=== PATIENT | female | born 1965 | race Caucasian/White ===

== ENCOUNTER 2020-05-03 12:47 | Outpatient (CLI) | payer SELFPAY ==
--- NOTE | ~2020-05-03 | XR_ITS ---
EXAMINATION: XR lumbar spine 2-3V EXAM DATE: 05/03/2020 13:26 INDICATION: Gross study of back pain, coccygeal pain. TECHNIQUE: Lumber spine frontal, lateral, lateral L5-S1 projections for interpretation. There is no prior study for comparison. FINDINGS: There is 4 mm anterolisthesis L5 on S1 with moderate disc disease at this level, mild to mo derate at L4-5. Possible L5 spondylolysis. The vertebral bodies are otherwise aligned. The vertebral body and disc heights are otherwise well maintained. There is moderate lower lumbar facet arthropathy . Sacrum, sacroiliac joints, sacral arcuate lines are intact. IMPRESSION: 1. L5-S1 grade 1 anterolisthesis, moderate disc disease and moderate lower lumbar facet arthropathy. 2. L5 spondylolysis not excludable. Reviewed, dictated and finalized at location G. IMPRESSION: 1. L5-S1 grade 1 anterolisthesis, moderate disc disease and moderate lower lum bar facet arthropathy. 2. L5 spondylolysis not excludable.
== END 2020-05-03 12:48 | disposition home or self-care (01) ==
PROVIDERS: PCP Family Medicine; Visit Provider Family Medicine
DX: M54.5 Low back pain (principal); M43.16 Spondylolisthesis, lumbar region; M51.86 Other intervertebral disc disorders, lumbar region; M47.816 Spondylosis without myelopathy or radiculopathy, lumbar region
CPT/HCPCS: 72100

== ENCOUNTER 2021-08-27 10:11 | Emergency (ER) | payer MEDICARE, SELFPAY ==
--- NOTE | ~2021-08-27 | XR_ITS ---
EXAMINATION: XR chest 2V 08/27/2021 11:31 INDICATION: Cough and congestion. PROCEDURE: 2 view chest COMPARISON: No prior studies for comparison. FINDINGS: The lungs are clear. The cardiomediastinal silhouette is within normal limits. There are no pleural effusions. There is no pneumothorax suspected. IMPRESSION: 1: NO ACUTE CARDIOPULMONARY DISEASE. Reviewed, dictated and finalized at location A. OMER SERVICE COORDINATOR
[2021-08-27 10:40] VITALS: BP 140/88; PULSE 93; RESP 14; TEMP 37.2; O2SAT 97
--- NOTE | 2021-08-27 11:09 | ED.GENADULT ---
HPI - General Adult General Chief complaint: Upper Respiratory Infection Stated complaint: cough/congestion Time Seen by Provider: 08/27/21 11:09 Source: patient Mode of arrival: ambulatory Limitations: no limitations History of Present Illness HPI narrative: 56-year-old female patient presents to the [facility] with complaints of cough and congestion for the past 10 days. Patient states she did a home test about 4 days into her symptoms but it came up negative. Patient is fully vaccinated against COVID. Patient does actively smoke. Patient states she has been trying to take some [id number] medication but it has not helped. Patient states she has had mostly cough, some drainage and congestion. Denies any current shortness of breath at this time. Denies having inhaler at home. Related Data Home Medications Medication Instructions Recorded Confirmed pramipexole 1.5 mg PO HS 08/27/21 08/27/21 triamterene-hydrochlorothiazid 1 cap PO DAILY 08/27/21 08/27/21 Allergies Allergy/AdvReac Type Severity Reaction Status Date / Time No Known Allergies Allergy Verified 08/27/21 10:49 Review of Systems Review of Systems: CONSTITUTIONAL: Denies fever, chills, or sweats. EYES: Denies visual changes, redness, or discharge. ENT: Positive rhinorrhea, congestion, denies sore throat, or otalgia. CARDIOVASCULAR: Denies chest pain, palpitations, or edema. RESPIRATORY: Positive cough with dyspnea. GASTROINTESTINAL: Denies abdominal pain, nausea, vomiting, or diarrhea. GENITOURINARY: Denies dysuria or hematuria. SKIN: Denies rash or itching. MUSCULOSKELETAL: Denies back pain, joint pain, or myalgia. NEUROLOGIC: Denies headache, numbness, or weakness. PSYCHIATRIC: Denies anxiety or depression. [facility] Past Medical History Medical History (Updated 08/27/21 @ 11:55 by JERAMY Pulliam) Arthritis Bulging disc Lumbar Degenerative disc disease GERD (gastroesophageal reflux disease) IBS (irritable bowel syndrome) Ovarian cyst Surgical History Surgical History (Updated 08/27/21 @ 11:11 by JERAMY Pulliam) H/O: hysterectomy History of appendectomy History of orthopedic surgery X3 Family History Family History (Updated 08/27/21 @ 11:12 by JERAMY Pulliam) Other Heart disease Hypertension Social History Social History (Updated 08/27/21 @ 11:12 by JERAMY Pulliam) Smoking status: Current every day smoker Comments At the time of my signature I agree with nursing past medical history, surgical, social, and family history. There is no relevant family history pertinent to the presenting complaint. Exam Narrative: GENERAL: Well-appearing, well-nourished, and in no acute distress. HEAD: Normocephalic, atraumatic. EYES: PERRLA and EOMI. ENT: Nares with erythema and edema noted bilaterally, no rhinorrhea or epistaxis. Mucous membranes moist. Posterior pharynx with no erythema, tonsillar joint, exudates or lesions present. Bilateral TMs are clear with no erythema or foreign bodies in the canal. NECK: Supple. No lymphadenopathy CHEST: Patient does have inspiratory wheezing noted to left upper and left lower lungs on auscultation. No respiratory distress. Patient able to talk in clear complete sentences. HEART: Regular rate and rhythm. No murmur heard. Normal peripheral pulses. ABDOMEN: Soft, nontender, nondistended, normal active bowel sounds. EXTREMITIES: Normal range of motion. No edema. SKIN: Warm, dry, no rash. NEURO: No focal deficits. Alert and oriented x3. Course Course Level of Care: Express Care Visit Reevaluation(s) Reevaluation #1: Reevaluated patient after x-ray had resulted. Discussed with her that the x-ray is negative. Patient did complete the breathing treatment. Patient states she feels like she is coughing more since the breathing treatment. Patient's lung sounds have improved and no longer here the wheezing to the left lower lobe. Discussed with patient that we did send off
[2021-08-27] MEDS: IPRATROPIUM BR 0.02% INH SOLN 0.5 MG/2.5 ML VIAL INHALATION (11:33)
[2021-08-27] MEDS: ALBUTEROL SULFATE NEB 2.5 MG/3 ML INH INHALATION (11:33)
[2021-08-27 11:51] VITALS: RESP 18; O2SAT 99
[2021-08-28 13:26] LABS: SARS-CoV-2 RNA PCR Negative
== END 2021-08-27 11:59 | disposition home or self-care (01) ==
PROVIDERS: Emergency Provider Nurse Practitioner Family; PCP Physician Assistant
DX: J40 Bronchitis, not specified as acute or chronic (principal); Z20.822 Contact with and (suspected) exposure to COVID-19; M19.90 Unspecified osteoarthritis, unspecified site; K21.9 Gastro-esophageal reflux disease without esophagitis
CPT/HCPCS: 71046; 94640; 99213; C9803; G0463; U0003; U0005

== ENCOUNTER → 2022-02-08 12:22 | Outpatient (CLI) | payer MEDICARE, SELFPAY ==
--- NOTE | ~2022-02-08 | MM_ITS ---
EXAMINATION: MM screening susie BI w naomie HISTORY: Screening TECHNIQUE: Craniocaudal and mediolateral oblique 3-D tomosynthesis images were obtained and synthetic 2-D images were generated. CAD analysis was submitted and interpreted. COMPARISON: 07/09/2016 BREAST PARENCHYMAL COMPOSITION: There are scattered areas of fibroglandular density. FINDINGS: There is no evidence of suspicious mass, calcification, or architectural distortion to sugg est malignancy in either breast. There has been no suspicious interval change. IMPRESSION: 1. No mammographic evidence of malignancy. 2. Recommend routine screening mammography in one year. BI-RADS Category 1: Negative Reviewed, dictated and finalized at location A.
== END ==
PROVIDERS: PCP Family Medicine; Visit Provider Family Medicine
DX: Z12.31 Encounter for screening mammogram for malignant neoplasm of breast (principal)
CPT/HCPCS: 77063; 77067

== ENCOUNTER 2022-02-14 15:37 | Outpatient (CLI) | payer MEDICARE, SELFPAY ==
--- NOTE | 2022-02-14 | ECG_ITS ---
Measurements Intervals [place] Rate: 76 P: 52 [place]: 165 QRS: 35 QRSD: 74 T: 44 QT: 386 QTc: 437 Interpretive Statements SINUS RHYTHM BASELINE WANDER- I, II NORMAL ECG Electronically Signed On 02-14-2022 16:38:07 CDT by Darnell Pichardo D.O.
[2022-02-14 16:11] LABS: Hemoglobin 14.3 g/dL (12.0-15.0)
[2022-02-14 16:26] LABS: Albumin Level 4.5 g/dL (3.5-5.1); Estimated Glomerular Filt Rate > 60
== END 2022-02-14 15:38 | disposition home or self-care (01) ==
PROVIDERS: PCP Family Medicine; Visit Provider Orthopaedic Surgery
DX: M17.11 Unilateral primary osteoarthritis, right knee (principal); K21.9 Gastro-esophageal reflux disease without esophagitis; Z01.818 Encounter for other preprocedural examination
CPT/HCPCS: 36415; 82040; 82565; 85014; 85018; 93005

== ENCOUNTER 2022-02-20 08:27 | Emergency (ER) | payer MEDICARE, SELFPAY ==
[2022-02-20 08:32] VITALS: BP 131/85; PULSE 91; RESP 20; TEMP 37.3; O2SAT 99
--- NOTE | 2022-02-20 08:33 | ED.EAR ---
HPI - Ear Problem General Chief complaint: Ear Stated complaint: Left Ear Pain Time Seen by Provider: 02/20/22 08:33 Source: patient and RN notes reviewed History of Present Illness HPI Narrative: Patient is a 56-year-old female who presents the urgent care with complaints of left ear pain and decreased hearing. Patient states that it started this past weekend and she saw her primary care doctor yesterday who gave her prescription drops. Patient states that she has done 4 doses and does not feel that it is getting any better. Patient does not feel that the drops are making it down into the canal . Patient denies of any fevers or other upper respiratory complaints. No acute distress noted. Patient aware of the plan of care. Some parts of this dictation were generated by voice recognition software and may contain typographical and/or grammatical inaccuracies. Related Data Home Medications Medication Instructions Recorded Confirmed pramipexole 1.5 mg tablet 1.5 mg PO HS 08/27/21 02/14/22 triamterene 37.5 1 cap PO DAILY 08/27/21 02/14/22 mg-hydrochlorothiazide 25 mg capsule sumatriptan succinate 6 mg/0.5 mL 6 mg subcut ONCE 10/31/21 02/14/22 subcutaneous cartridge (refill) [id number]-[id number] 3.5 4 drp EACH EAR Q8H 02/20/22 02/20/22 mg-10,000 unit/mL-1 % ear drops,susp Allergies Allergy/AdvReac Type Severity Reaction Status Date / Time adhesive tape Allergy Unknown Unknown Verified 02/14/22 14:47 Review of Systems Review of Systems: CONSTITUTIONAL: Denies fever, chills, or sweats. EYES: Denies visual changes, redness, or discharge. ENT: Denies rhinorrhea, congestion, sore throat. Reports of left otalgia CARDIOVASCULAR: Denies chest pain, palpitations, or edema. RESPIRATORY: Denies cough or dyspnea. GASTROINTESTINAL: Denies abdominal pain, nausea, vomiting, or diarrhea. GENITOURINARY: Denies dysuria or hematuria. SKIN: Denies rash or itching. MUSCULOSKELETAL: Denies back pain, joint pain, or myalgia. NEUROLOGIC: Denies headache, numbness, or weakness. All other systems reviewed are negative, except as documented in HPI. FORMERLY [facility], [facility] Past Medical History Medical History Arthritis Bulging disc Lumbar Degenerative disc disease GERD (gastroesophageal reflux disease) IBS (irritable bowel syndrome) Ovarian cyst Surgical History Surgical History H/O: hysterectomy History of appendectomy History of orthopedic surgery X3 Family History Family History Mother Lung cancer COPD (chronic obstructive pulmonary disease) Father Bone cancer Heart attack Arthritis Sibling Heart attack Other Heart disease Hypertension Social History Social History Smoking packs per day: 1.5 Smoking cigarettes per day: 30.0 Smoking status: Never smoker Tobacco type: cigarettes Alcohol intake: unknown Substance use: never Substance use type: does not use Comments At the time of my signature, I reviewed and agree with the nursing past medical, surgical, social, and family history. There is no relevant family history pertinent to the patient complaint. Exam Narrative: GENERAL: This is a well-nourished, well-developed patient, in no apparent distress. HEAD: normocephalic, atraumatic. EYES: PERRL. Sclera clear/white. Vision is grossly intact. EARS: External ears normal, mild to moderate edema to the left auditory canal with scant clear drainage. Right auditory canals clear and without drainage, right TM normal without perforation. Unable to visualize left TM. Hearing grossly intact. NOSE: External nose normal with no obvious nasal discharge, nares without redness, no rhinorrhea. THROAT: Mucous membranes moist NECK: Neck supple SKIN: warm, intact with no suspicious lesions o
== END 2022-02-20 09:02 | disposition home or self-care (01) ==
PROVIDERS: Emergency Provider Nurse Practitioner Family; PCP Family Medicine
DX: H60.92 Unspecified otitis externa, left ear (principal); M19.90 Unspecified osteoarthritis, unspecified site; K21.9 Gastro-esophageal reflux disease without esophagitis
CPT/HCPCS: 99213; G0463

== ENCOUNTER 2022-02-28 07:59 | Outpatient (CLI) | payer MEDICARE, SELFPAY ==
[2022-02-28 09:05] LABS: Basophils Percent Auto 0.6 % (0.2-1.2); Eosinophils Absolute Auto 0.2 K/mm3 (0-0.3); Eosinophils Percent Auto 2.1 % (0-4.4); Hematocrit 37.4 % (37.0-47.0); Hemoglobin 12.4 g/dL (12.0-15.0); Immature Granulocyte Absolute 0.03 K/mm3 (0.00-0.031); Immature Granulocyte Percent A 0.4 % (0-0.5); Lymphocytes Absolute Auto 2.23 K/mm3 (0.9-3.2); Lymphocytes Percent Auto 31.8 % (18.3-44.2); Mean Corpuscular HGB Conc 33.2 g/dl (32-36); Mean Corpuscular Hemoglobin 31.6 pg (26-34); Mean Corpuscular Volume 95.4 fl (80-100); Mean Platelet Volume 8.8 fl (7.4-10.4); Monocytes Absolute Auto 0.4 K/mm3 (0.1-0.6); Neutrophils Absolute Auto 4.1 K/mm3 (1.3-6.7); Neutrophils Percent Auto 59.1 % (45.5-73.1); Platelet Count Result 259 k/mm3 (150-375); Red Blood Count 3.92 M/mm3 (4.2-5.4); Red Cell Distribution Width 13.2 % (11.5-14.5)
[2022-02-28 09:20] LABS: Anion Gap 5 mmol/L (8-16); Blood Urea Nitrogen 20 mg/dL (7-17); Calcium 8.4 mg/dL (8.4-10.2); Carbon Dioxide 28 mmol/L (22-30); Chloride 107 mmol/L (98-107); Estimated Glomerular Filt Rate > 60; Glucose 93 mg/dL (65-110); Potassium 3.8 mmol/L (3.4-5.0); Sodium 140 mmol/L (137-145)
[2022-02-28 09:32] LABS: Urine Cotinine POSITIVE
[2022-02-28 09:38] LABS: Hemoglobin A1C 5.4 % (<5.7)
== END 2022-02-28 08:00 | disposition home or self-care (01) ==
PROVIDERS: Anesthesiology; PCP Family Medicine; Visit Provider Orthopaedic Surgery
DX: M17.11 Unilateral primary osteoarthritis, right knee (principal); Z79.899 Other long term (current) drug therapy; Z01.818 Encounter for other preprocedural examination
CPT/HCPCS: 36415; 80048; 80307; 83036; 85025; 87081

== ENCOUNTER 2022-04-02 09:09 | Outpatient (CLI) | payer MEDICARE, SELFPAY ==
[2022-04-02 09:40] LABS: Urine Cotinine NEGATIVE
== END 2022-04-02 09:10 | disposition home or self-care (01) ==
PROVIDERS: PCP Family Medicine; Visit Provider Orthopaedic Surgery
DX: M17.11 Unilateral primary osteoarthritis, right knee (principal); K21.9 Gastro-esophageal reflux disease without esophagitis; Z79.899 Other long term (current) drug therapy; Z87.891 Personal history of nicotine dependence; Z01.818 Encounter for other preprocedural examination
CPT/HCPCS: 80307

== ENCOUNTER 2022-04-26 12:08 | Outpatient (CLI) | payer MEDICARE, SELFPAY ==
[2022-04-26 12:42] LABS: Basophils Percent Auto 0.6 % (0.2-1.2); Eosinophils Absolute Auto 0.2 K/mm3 (0-0.3); Eosinophils Percent Auto 3.4 % (0-4.4); Hematocrit 37.4 % (37.0-47.0); Hemoglobin 12.6 g/dL (12.0-15.0); Immature Granulocyte Absolute 0.03 K/mm3 (0.00-0.031); Immature Granulocyte Percent A 0.5 % (0-0.5); Lymphocytes Absolute Auto 2.13 K/mm3 (0.9-3.2); Lymphocytes Percent Auto 32.7 % (18.3-44.2); Mean Corpuscular HGB Conc 33.7 g/dl (32-36); Mean Corpuscular Hemoglobin 32.6 pg (26-34); Mean Corpuscular Volume 96.6 fl (80-100); Monocytes Absolute Auto 0.4 K/mm3 (0.1-0.6); Monocytes Percent Auto 5.8 % (2.6-8.5); Neutrophils Absolute Auto 3.7 K/mm3 (1.3-6.7); Platelet Count Result 235 k/mm3 (150-375); Red Blood Count 3.87 M/mm3 (4.2-5.4); White Blood Count 6.5 K/mm3 (4.5-10.0)
[2022-04-26 13:03] LABS: Anion Gap 13 mmol/L (8-16); Blood Urea Nitrogen 20 mg/dL (7-17); Calcium 8.3 mg/dL (8.4-10.2); Carbon Dioxide 25 mmol/L (22-30); Chloride 105 mmol/L (98-107); Estimated Glomerular Filt Rate > 60; Glucose 142 mg/dL (65-110); Potassium 3.9 mmol/L (3.4-5.0); Sodium 143 mmol/L (137-145)
== END 2022-04-26 12:09 | disposition home or self-care (01) ==
PROVIDERS: Anesthesiology; PCP Family Medicine; Visit Provider Orthopaedic Surgery
DX: Z01.818 Encounter for other preprocedural examination (principal); M17.11 Unilateral primary osteoarthritis, right knee; Z79.899 Other long term (current) drug therapy
CPT/HCPCS: 36415; 80048; 82040; 85025; 86850; 86900; 86901

== ENCOUNTER 2022-05-01 00:34 | Day surgery (SDC) | payer MEDICARE, SELFPAY ==
--- NOTE | 2022-02-28 07:55 | PC.NURSE ---
Report to the Outpatient Waiting Room, entrance under the green pavilion located off [facility], at time _0830_ on date _03/27/22_. OR Time: _1030_. - You and your visitor will be asked a series of questions to screen for COVID 19 for your protection. - A mask is required within the hospital. - Only one visitor is allowed at this time. - The patient visitor is requested to leave or wait in car when not with patient. -PACK A SMALL OVERNIGHT BAG AND LEAVE IN THE CAR ALONG WITH YOUR WALKER, VISITING HOURS 10AM-8PM, PARK IN FRONT OF HOSPITAL AND USE MAIN HOSPITAL ENTRANCE Patients may have clear liquids (water, carbonated beverages, clear teas, apple juice) until 3 hours prior to surgery (0730 AM) with a maximum of 20 ounces. - No food from midnight until time of surgery Take the following medications with a SIP of water the morning of surgery: _FLUOXETINE, TYLENOL IF NEEDED_ Medications to discontinue per physician __NONE , Date to take last dose Please no make-up, nail icelandic, hairspray, perfume, deodorant, or body powder the day of surgery. No jewelry (including any body piercings) or valuables the day of surgery, leave them at home. Please take a shower or bath the night before, or the morning of, surgery with an antibacterial soap. Wear comfortable, loose fitting clothing. - Jewelry must be removed prior to entering the operating room. Rings and piercings that are not removed may be cut off. - The hospital will not accept responsibility for valuables. - Please leave all valuables, including medications, at home the day of surgery. If you are going home after surgery, a licensed snaker tractor driver must drive you home. - NO public transportation without another adult. - We recommend that an adult stay with you for 24 hours following discharge. - We also recommend that you do not drive, make important decision, drink alcoholic beverages, or take any drugs that were not prescribed by your health care provider for at least 24 hours after your discharge time. Follow any additional instructions given to you from your surgeon. TOTAL JOINT CALL TODAY 02/28/22 @ 1000 AM, [facility], USE MAIN ENTRANCE - LOWER LEVEL If you or anyone in your household have experienced Covid symptoms in the past week, please notify your surgeon or the nurse liaison at the phone number below for possible testing. Instructions given to _PT_and asked if any additional questions and then verbalized understanding. Patient advised to call surgeon office or pre surgery nurse liaison [phone] if any additional questions.
[2022-02-28 08:27] VITALS: BP 130/84; PULSE 86; RESP 20; TEMP 37.1; O2SAT 97; BMI 38.7
[2022-04-25 09:36] VITALS: BMI 38.6
--- NOTE | 2022-04-25 09:42 | PC.NURSE ---
PRE-OP INSTRUCTIONS, PLEASE READ CAREFULLY Report to the Outpatient Waiting Room, entrance under the green pavilion located off [facility], at time _0600_ on date _05/01/22_. OR Time: _0730_. Time changes happen often and if your time is changed the preop area will call you the afternoon before. - You and your visitor will be asked to self-screen and do not enter if you have any COVID symptoms. - Only one visitor and NO children visitors are allowed at this time. - The patient visitor is requested to leave or wait in car when not with patient due to restrictions. - A mask is required within the hospital. Patients may have clear liquids (water, carbonated beverages, clear teas, apple juice) until 3 hours prior to surgery (0430 AM) with a maximum of 20 ounces. - No food from midnight until time of surgery Take the following medications with a SIP of water the morning of surgery: _FLUOXETINE, TYLENOL IF NEEDED_ Medications to discontinue per physician N/A Date to take last dose Please no make-up, nail portuguese, hairspray, perfume, deodorant, or body powder the day of surgery. No jewelry (including any body piercings) or valuables the day of surgery, leave them at home. Please take a shower or bath the night before, or the morning of, surgery with an antibacterial soap. Wear comfortable, loose fitting clothing. Children are encouraged to wear pajamas. - Jewelry must be removed prior to entering the operating room. Rings and piercings that are not removed may be cut off. - The hospital will not accept responsibility for valuables. - Please leave all valuables, including medications, at home the day of surgery. If you are going home after surgery, a licensed van driver must drive you home. - NO public transportation without another adult. - We recommend that an adult stay with you for 24 hours following discharge. - We also recommend that you do not drive, make important decision, drink alcoholic beverages, or take any drugs that were not prescribed by your health care provider for at least 24 hours after your discharge time. Follow any additional instructions given to you from your surgeon. If you or anyone in your household have experienced Covid symptoms in the past week, please notify your surgeon or the nurse liaison at the phone number below for possible testing. Telephone instructions given to ___PT and asked if any additional questions and then verbalized understanding. Patient advised to call surgeon office or pre surgery nurse liaison [phone] if any additional questions.
--- NOTE | 2022-04-30 11:22 | WPDANESEPPF ---
Anes - Initial Pre Proc Eval Procedure: Operation Date: 03/27/22 10:30 Proposed Procedures p Right Total Knee Arthroplasty - Abdoul Luis MD Operation Date: 05/01/22 07:30 Proposed Procedures p Right Total Knee Arthroplasty - Abdoul Luis MD Date/Time: 04/30/22 11:22 Surgeon: Abdoul Luis MD Pre Op Diagnosis: Prim O.A. Right Knee Patient Data Age: 56 Gender: F Height: 1.6 m Weight: 99 kg Last Vital Signs Temp 37.1 C 02/28/22 08:27 Pulse 86 02/28/22 08:27 Resp 20 02/28/22 08:27 BP 130/84 02/28/22 08:27 Pulse Ox 97 02/28/22 08:27 O2 Del Method Room Air 02/28/22 08:27 Allergies Allergy/AdvReac Type Severity Reaction Status Date / Time adhesive tape Allergy Mild SKIN Verified 05/01/22 06:21 IRRITATION Home Medications Medication Instructions Recorded Confirmed Type pramipexole 1.5 mg tablet 1.5 mg PO HS 08/27/21 05/01/22 History triamterene 37.5 1 cap PO QAM 08/27/21 05/01/22 History mg-hydrochlorothiazide 25 mg capsule sumatriptan succinate 6 mg/0.5 mL 6 mg subcut ONCE PRN Migraine 10/31/21 05/01/22 History subcutaneous cartridge (refill) Headache acetaminophen 500 mg tablet 1,000 mg PO QID PRN Pain 02/28/22 05/01/22 History (Acetaminophen Extra Strength) docusate sodium 50 mg capsule 100 mg PO HS 02/28/22 05/01/22 History ECG: Date of Service: 02/14/22 Procedure(s): CA 12 lead EKG Accession Number(s): [id number] cc: ~ ? Measurements Intervals? [place]? Rate: ? 76 ? P:? 52 [place]: ? 165? QRS:? 35 QRSD: ? 74 ? T:? 44 QT: ? 386? QTc:? 437? Interpretive Statements SINUS RHYTHM BASELINE WANDER- I, II NORMAL ECG Electronically Signed On 02-14-2022 16:38:07 CDT by Darnell Pichardo D.O. Patient hx anesthesia problems: none Family hx anesthesia problems: none Results Review: All pre-operative results and documents have been reviewed as part of the pre-operative evaluation. [facility] Past Medical History Medical History (Updated 05/01/22 @ 07:17 by Florencio Navas MD) Arthritis Bulging disc Lumbar Degenerative disc disease Depression GERD (gastroesophageal reflux disease) HTN (hypertension) IBS (irritable bowel syndrome) Morbid obesity with BMI of 40.0-44.9, adult Obesity Ovarian cyst Surgical History Surgical History H/O: hysterectomy History of appendectomy History of orthopedic surgery X3 Family History Family History Mother Lung cancer COPD (chronic obstructive pulmonary disease) Father Bone cancer Heart attack Arthritis Sibling Heart attack Other Heart disease Hypertension Social History Social History Smoking packs per day: 1.5 Smoking cigarettes per day: 30.0 Years smoked: 10 Smoking pack-years: 15.00 Smoking status: Former smoker Tobacco type: cigarettes Second hand tobacco smoke exposure: No Smoking end date: 12/10/21 Additional smoking assessment comments: STATES OCCASIONALLY CHEATING LAST CIG 02/26/22-LAST CIG 02/26/22 CONFIRMED Alcohol intake: unknown Drinks per week: 2 Substance use: never Substance use type: does not use Living arrangements: with family Spiritual care concerns: No Anes - Eval Final PreProcedure Day of Procedure 04/30/22 11:22 Patient weight: morbidly obese Heart: regular rate and rhythm Lungs: clear to auscultation and normal air movement Airway: Mallampati scale class II Neurological: alert and oriented Last oral intake: >/= 8 hours ASA classification: III Emergent: no Anesth
--- NOTE | 2022-04-30 11:24 | WPDANESPNB ---
Anes - Peripheral Nerve Block Date/Time: 04/30/22 11:24 I have discussed with the patient/family/POA the placement of a peripheral nerve block for post-operative pain management, including associated risks, benefits, complications, and side effects. Alternative methods of post-operative analgesia were detailed. Questions were solicited and answers provided to the satisfaction of the patient/family/POA. Time-Out: A pre-procedural Time-Out was completed immediately before starting the procedure and confirmed: Patient Identification, Site, Procedure, Patient Position and the Availability of Requisite Equipment. Clinical Indications: Acute post-operative pain management requested by the operative surgeon. Nerve Block Insertion Note Anes-nerve block: adductor canal right Patient position: supine Skin prep: chlorhexidine Needle: 22 gauge, stimulating, insulated echogenic needle. Needle length: 80 mm Technique: ultrasound Technique comment: in plane Injectate: bupivacaine 0.5% with epi 5 mcg/ml (30cc) Observations: tolerated well Complications: none Procedure start time:: 720 Procedure end time:: 725
[2022-05-01] VITALS (18 sets, daily range): BP systolic 127–146; BP diastolic 78–97; PULSE 71–86; RESP 10–20; TEMP 35.8–37.3; O2SAT 95–99
--- NOTE | ~2022-05-01 | XR_ITS ---
EXAMINATION: XR knee RT 2V DATE: 05/01/2022 10:14 INDICATION: Right total knee arthroplasty. Postop. TECHNIQUE: 2 views of right knee were obtained. COMPARISON: Right knee radiographs 04/23/2022 FINDINGS: There is a total right knee arthroplasty with patellar resurfacing in near-anatomic alignme nt. No fracture. There is gas in the knee joint and soft tissues, consistent with recent surgery. The re is a small knee joint effusion. IMPRESSION: 1. Total right knee arthroplasty in near-anatomic alignment. Reviewed, dictated and finalized at location A.
[2022-05-01] MEDS: ACETAMINOPHEN 500 MG TABLET 1000 MG PO (06:35)
[2022-05-01] MEDS: LACTATED RINGERS 1,000 ML 30 ML IV CONT ×3 (06:45→10:46)
[2022-05-01] MEDS: TRANEXAMIC ACID 1,000MG/ISO100 1,000 MG/100 ML BAG 200 MG IVPB (06:46)
--- NOTE | 2022-05-01 07:22 | WPDHPUPDATE1 ---
History and Physical Update Update Date/Time: 05/01/22 07:22 History and Physical has been reviewed, including an updated exam of the patient. There are NO changes in the patient's condition. Risks, benefits, and alternatives have been discussed and questions answered. Patient agrees to proceed with procedure.
[2022-05-01] MEDS: ceFAZolin 2 GM/D5W 50 ML 2 GM/50 ML BAG IVPB ×3 (07:30→22:00)
[2022-05-01] MEDS: TRANEXAMIC ACID 1,000 MG/10 ML AMPUL 1000 MG IV PUSH (09:26)
[2022-05-01] MEDS: fentaNYL CITRATE INJ (*CRX) 100 MCG/2 ML VIAL 25 MCG IV PUSH ×8 (10:10→11:15)
--- NOTE | 2022-05-01 11:44 | ADMGEN ---
This patient, Noa Condon, was admitted to 3 [facility] Surg Room 313-01 at 1135. Patient/family oriented to hospital policies and general routines including ID bracelet, bed and alarms, visiting hours, pain management, procedures, bathroom and other care routines, personal items, smoking policy, room service/diet, and visiting hours. Information on how to activate the Rapid Response Team has been discussed. Patient/Family are encouraged to report perceived risks to care and to ask questions if they do not understand what they are told or what they should do.
[2022-05-01] MEDS: SODIUM CHLORIDE 0.9% IV 1,000 ML 125 ML IV CONT (11:57)
[2022-05-01] MEDS: oxyCODONE HCL (*CRX) 5 MG TAB IR PO (11:58)
--- NOTE | 2022-05-01 15:57 | P.OP_ITS ---
Procedure Note - Detailed Date of Procedure 05/01/22 Pre-op Diagnosis Prim O.A. Right Knee Post-op Diagnosis Same Procedure Performed Total knee arthroplasty, right knee. Surgeon Abdoul Luis MD Thermal Spray Operator Mignon Mendosa PA-C Anesthesia General and Regional (subsartorial block) Findings Advanced disease with extensive osteophytes and flexion contracture. Large medial release performed. Description of Procedure The patient was given a nerve block preoperatively, and then brought to the operating room. A general anesthetic was administered. The leg was prepped and draped in the usual sterile fashion. The limb was elevated and the tourniquet inflated to 300 mmHg during initial exposure, and cementation. A longitudinal incision was created along the medial border of the patella and patellar tendon, and a trivector approach to the knee was performed. A moderate medial release was taken, then later extended. The knee was then flexed. The osteophytes were carefully removed. The intramedullary guide was placed in the femoral canal. The distal femoral resection was then taken with the oscillating saw. The collateral ligaments were carefully protected. The tibia was carefully exposed. The jig was applied, and the proximal tibia was resected according to preoperative plan. The knee was balanced in extension. Appropriate releases were taken where needed. The anterior cruciate ligament and meniscal remnants w ere removed. The posterior cruciate ligament was preserved. The patella was measured. Patellar resection was carried out with the oscillating saw. The lug holes drilled. The femur was sized and rotation assessed using a combination of gap balancing, posterior referencing, and the AP axis. The 4 in 1 cutting block was used to finish the femoral cuts after equal gaps were assured. The lug holes were drilled. The box cut was taken. The osteophytes were carefully removed from the back of the knee. The knee was copiously irrigated with antibiotic solution periodically throughout the procedure. The meniscal remnants were removed. The spacer block was used to confirm equal flexion and extension gaps. Further releases were performed as needed. This included primarily the anterior MCL and needle release of the MCL fibers in flexion due to medial flexion tightness. The tibia was sized and broached. The bony surfaces were prepared for cementing with pulsatile lavage. The real tibial component was cemented into position followed by press fitting the femoral component. Excess cement was carefully removed. The patella component was press-fit. Patellar tracking was carefully assessed. No additional releases were required. The wound was closed with #1 Vycril suture, #2 Quill suture, 0-Quill suture, and 2-0 Quill suture followed by Steri-Strips. A sterile bulky dressing was applied. Meticulous hemostasis was maintained throughout the procedure. There were no complications. The patient was extubated and brought to the recovery room in stable condition after the application of sterile dressing with Noble bandage. Implants Who is Undercover [employer] Triathlon knee system, low profile cemented tibia size 4, press-fit femoral component size 4 ,and an 13 mm posterior stabilizing polyethylene insert. 32mm asymmetric metal backed press-fit patella component. Estimated Blood Loss -200.0 Drains No Pathology None sent Complications No immediate complications Condition Stable Disposition PACU [facility] Billing Surgery - Charge Forward: Surgery Billing
[2022-05-01] MEDS: SENNA/DOCUSATE SODIUM TABLET 2 TAB PO (16:54)
[2022-05-01] MEDS: MELOXICAM 7.5 MG TABLET PO (16:55)
[2022-05-01] MEDS: ASPIRIN 81 MG ENTERIC TABLET PO (16:55)
[2022-05-01] MEDS: oxyCODONE HCL (*CRX) 5 MG TAB IR 10 MG PO ×2 (16:55→21:36)
[2022-05-01] MEDS: DOCUSATE SODIUM 100 MG CAPSULE PO (21:37)
[2022-05-01] MEDS: FAMOTIDINE 20 MG TABLET PO (21:37)
[2022-05-01] MEDS: PRAMIPEXOLE 0.5 MG TABLET 1.5 MG PO (21:37)
[2022-05-02 00:09] VITALS: BP 94/63; PULSE 87; RESP 18; TEMP 36; O2SAT 96
[2022-05-02] MEDS: oxyCODONE HCL (*CRX) 5 MG TAB IR 10 MG PO ×3 (03:06→10:47)
[2022-05-02 05:08] VITALS: BP 111/72; PULSE 86; RESP 18; TEMP 36.2; O2SAT 95
[2022-05-02] MEDS: ceFAZolin 2 GM/D5W 50 ML 2 GM/50 ML BAG IVPB (06:02)
--- NOTE | 2022-05-02 07:33 | WPDANESPN ---
Anes - Prog Note Post-Op Date/Time: 05/02/22 07:33 Cardiovascular status: normal Respiratory status: normal Airway patency: baseline Mental status: baseline Post-Op hydration status: normal Vital Signs: Last Vital Signs Temp 97.1 F L 05/02/22 05:08 Pulse 86 05/02/22 05:08 Resp 18 05/02/22 05:08 BP 111/72 05/02/22 05:08 Pulse Ox 95 05/02/22 05:08 O2 Del Method Room Air 05/01/22 20:00 O2 Flow Rate 1 05/01/22 12:13 Pain Score (VAS): 0 I/O: Intake & Output 05/01/22 05/01/22 05/02/22 15:59 23:59 07:59 Intake Total 640 1890 250 Balance 640 1890 250 Patient Feedback: Patient satisfied with anesthetic care.
[2022-05-02 08:00] VITALS: PULSE 86; RESP 18; O2SAT 95
[2022-05-02] MEDS: SENNA/DOCUSATE SODIUM TABLET 2 TAB PO (09:23)
[2022-05-02] MEDS: polyethylene glycoL 3350 17 GM POWD.PACK PO (09:23)
[2022-05-02] MEDS: MELOXICAM 7.5 MG TABLET PO (09:24)
[2022-05-02] MEDS: TRIAMTERENE 37.5 MG/HCTZ 25 MG (MAXZIDE) TABLET 1 TAB PO (09:24)
[2022-05-02] MEDS: FAMOTIDINE 20 MG TABLET PO (09:24)
[2022-05-02] MEDS: ASPIRIN 81 MG ENTERIC TABLET PO (09:24)
[2022-05-02] MEDS: predniSONE 5 MG TABLET PO (09:24)
[2022-05-02] MEDS: ACETAMINOPHEN 500 MG TABLET 1000 MG PO (09:31)
--- NOTE | 2022-05-02 09:46 | P.DS_ITS ---
DS: Admitting Diagnosis Discharge Date 05/02/22 Admitting Diagnosis OA knee Right DS: Discharge Diagnosis Discharge Diagnosis Plan Postop day 1: Right total knee arthroplasty. Patient tolerated procedure well. No complications. Pain manageable with pain medication. No numbness or tingling. We had a lengthy discussion regarding postoperative wound care, limitations, expectations, and exercises. Patient shows good understanding. She has had initial physical therapy and is tolerating it well. DVT prophylaxis: 81 mg baby aspirin b.i.d. for 14 days. Pain medication: Percocet. Meloxicam. Prednisone. Patient has followup appointment with Dr. Luis in 3 weeks. DS: Summary Hospital Course Reason for hospitalization: Total knee arthroplasty Hospital Course: Patient tolerated procedure well. Has had initial PT/OT. No complications. Pain well managed. Status at Discharge Functional status at discharge: uses cane/walker Overall status at discharge: patient is progressing back to baseline Time Spent with Patient Time attestation: Total time spent providing and/or coordinating discharge services: Exam Narrative: Obese 56 y/o female. Resting comfortably in chair. No acute distress. A&O x3. Wearing compression socks bilaterally. Dressing intact with no drainage. Moderate swelling. Small area of ecchymosis. No erythema. No hematoma. Good early range of motion. Calf nontender. Neurologic status intact. No varicosities. Distal pulses palpable. Discharge Plan Discharge Patient Disposition: Home, Self-Care Discharge Instructions: See green instruction sheets Stand Alone Forms: General Discharge Instructions Follow-up/Referrals: Mignon Mendosa PA [Physician Trial Court Judge] - Discharge Medications: New meloxicam 15 mg tablet 15 mg PO DAILY Qty: 30 0RF Rx Instructions: Cut in half. Take 1/2 in morning and 1/2 at night. Take with food. Stop if stomach upset. oxycodone-acetaminophen 5-325 mg tablet 1 - 2 tablet PO Q4-6H MDD 6 PRN (Reason: pain) Qty: 30 0RF prednisone 5 mg tablet 5 mg PO DAILY 21 Days Qty: 21 0RF aspirin 81 mg tablet,delayed release (DR/EC) 81 mg PO BID 14 Days Qty: 28 0RF Continued triamterene-hydrochlorothiazid 37.5-25 mg Capsule 1 cap PO QAM pramipexole 1.5 mg Tablet 1.5 mg PO HS sumatriptan succinate 6 mg/0.5 mL cartridge 6 mg subcut ONCE PRN (Reason: Migraine Headache) Rx Instructions: may repeat dose once in 1 hour if not relieved docusate sodium 50 mg Capsule 100 mg PO HS acetaminophen [Acetaminophen Extra Strength] 500 mg Tablet 1,000 mg PO QID PRN (Reason: Pain)
--- NOTE | 2022-05-02 14:05 | PCOTNOTE ---
Attempted to see patient this pm, however patient being discharged and has no concerns as pertains to OT prior to leaving. Patient going to stay with sister and will have help as needed. At this time, patient is packed and waiting to leave.
== END 2022-05-02 14:15 | disposition home or self-care (01) ==
LOC: ANHSURGERY 05:47 → ANH3MEDSUR 11:43
PROVIDERS: PCP Family Medicine; Visit Provider Orthopaedic Surgery
PROC: (CPT 27447; principal; 2022-05-01 07:30)
DX: M17.11 Unilateral primary osteoarthritis, right knee (principal); G89.18 Other acute postprocedural pain; I10 Essential (primary) hypertension; K21.9 Gastro-esophageal reflux disease without esophagitis; K58.9 Irritable bowel syndrome, unspecified; F32.A Depression, unspecified; E66.01 Morbid (severe) obesity due to excess calories; Z68.41 Body mass index [BMI] 40.0-44.9, adult; Z87.891 Personal history of nicotine dependence
CPT/HCPCS: 27447; 64447; 36415; 73560; 80048; 80307; 82040; 85025; 86850; 86900; 86901; 97110; 97116; 97161; 97165; A9270; C1713; C1776; J0131; J0171; J0690; J1100; J1170; J1200; J1885; J2250; J2270; J2405; J2704; J2795; J3010; J7030; J7120; J7512

== ENCOUNTER 2022-06-06 10:04 | Outpatient (CLI) | payer MEDICARE, SELFPAY ==
[2022-06-06 11:03] LABS: Hematocrit 34.7 % (37.0-47.0); Hemoglobin 11.5 g/dL (12.0-15.0)
[2022-06-06 11:10] LABS: Albumin Level 4.3 g/dL (3.5-5.1); Estimated Glomerular Filt Rate > 60; Glucose 99 mg/dL (65-110)
[2022-06-06 11:13] LABS: Hemoglobin A1C 5.4 % (<5.7)
[2022-06-06 11:14] LABS: Urine Cotinine NEGATIVE
== END 2022-06-06 10:05 | disposition home or self-care (01) ==
LOC: ANHLAB 10:09
PROVIDERS: PCP Family Medicine; Visit Provider Physician Assistant Surgical
DX: M17.0 Bilateral primary osteoarthritis of knee (principal); K21.9 Gastro-esophageal reflux disease without esophagitis; Z79.899 Other long term (current) drug therapy
CPT/HCPCS: 80307; 82040; 82565; 82947; 83036; 85014; 85018

== ENCOUNTER 2022-07-02 15:34 | Outpatient (CLI) | payer MEDICARE, SELFPAY ==
--- NOTE | ~2022-07-02 | XR_ITS ---
XR lumbar spine 2-3V DATE: 07/02/2022 16:17 INDICATION: Left thigh pain, left buttock pain TECHNIQUE: AP, lateral, coned lateral lumbosacral views COMPARISON: 05/03/2020 lumbar spine FINDINGS: Since only 05/03/2020 there is advanced degenerative change with severe degenerative disc di sease now at L4-5 and L5-S1. Degenerative changes apophyseal joints with associated minimal grade 1 anterolisthesis at L4-5 and to a greater extent at L5-S1. Prominent anterior bridging osteophyte at T9-10. Prominent degenerative disc disease at T11-12. No fracture or bone destruction of the lumbar spine is detected. The lumbar and included lower thorac ic pedicles appear intact. Normal alignment at the pubic symphysis and sacroiliac joints. There is diffuse osteopenia. IMPRESSION: Prominent worsening, severe degenerative disc disease at L4-5 and L5-S1 since 05/03/2020 Grade 1 anterolisthesis at L4-5 and L5-S1 due to degenerative changes at apophyseal joints Osteopenia Reviewed, dictated and finalized at location A. NEERING TEACHER IMPRESSION: Prominent worsening, severe degenerative disc disease at L4-5 and L 5-S1 since 05/03/2020 Grade 1 anterolisthesis at L4-5 and L5-S1 due to degenerative changes at apophy seal joints Osteopenia
--- NOTE | ~2022-07-02 | XR_ITS ---
XR hip LT min 2V 07/02/2022 16:17 Indication: Left hip and thigh pain Procedure: AP pelvis and 2 views left hip Comparison: No prior studies for comparison. Findings: There is mild osteoarthritis of the left hip. No fracture or traumatic malalignment. No sof t tissue abnormality. No foreign bodies. Pelvic rings are intact. Sacral foramen are symmetric. There is lower lumbar spondylosis. Impression: 1: Mild osteoarthritis of the left hip. Reviewed, dictated and finalized at location B. T SUPERINTENDENT Impression: 1: Mild osteoarthritis of the left hip.
== END 2022-07-02 15:35 | disposition home or self-care (01) ==
PROVIDERS: PCP Family Medicine; Visit Provider Physician Assistant
DX: M79.18 Myalgia, other site (principal); M51.36 Other intervertebral disc degeneration, lumbar region; M51.37 Other intervertebral disc degeneration, lumbosacral region; M85.88 Other specified disorders of bone density and structure, other site; M16.12 Unilateral primary osteoarthritis, left hip
CPT/HCPCS: 72100; 73502

== ENCOUNTER 2022-08-01 12:46 | Outpatient (CLI) | payer MEDICARE, SELFPAY ==
[2022-08-01 13:37] LABS: Basophils Percent Auto 0.5 % (0.2-1.2); Eosinophils Absolute Auto 0.2 K/mm3 (0-0.3); Eosinophils Percent Auto 2.7 % (0-4.4); Hematocrit 41.2 % (37.0-47.0); Hemoglobin 13.9 g/dL (12.0-15.0); Immature Granulocyte Absolute 0.03 K/mm3 (0.00-0.031); Immature Granulocyte Percent A 0.4 % (0-0.5); Lymphocytes Absolute Auto 2.59 K/mm3 (0.9-3.2); Lymphocytes Percent Auto 32.2 % (18.3-44.2); Mean Corpuscular HGB Conc 33.7 g/dl (32-36); Mean Corpuscular Hemoglobin 31.4 pg (26-34); Mean Corpuscular Volume 93.2 fl (80-100); Mean Platelet Volume 9.4 fl (7.4-10.4); Monocytes Absolute Auto 0.4 K/mm3 (0.1-0.6); Monocytes Percent Auto 4.7 % (2.6-8.5); Neutrophils Absolute Auto 4.8 K/mm3 (1.3-6.7); Neutrophils Percent Auto 59.5 % (45.5-73.1); Platelet Count Result 270 k/mm3 (150-375); Red Blood Count 4.42 M/mm3 (4.2-5.4); Red Cell Distribution Width 12.8 % (11.5-14.5); White Blood Count 8.1 K/mm3 (4.5-10.0)
[2022-08-01 13:52] LABS: Albumin Level 4.7 g/dL (3.5-5.1); Estimated Glomerular Filt Rate > 60; Glucose 90 mg/dL (65-110)
[2022-08-01 20:11] LABS: Urine Cotinine NEGATIVE
== END 2022-08-01 12:47 | disposition home or self-care (01) ==
LOC: ANHSURGERY 12:47
PROVIDERS: PCP Family Medicine; Visit Provider Orthopaedic Surgery
DX: M17.12 Unilateral primary osteoarthritis, left knee (principal); Z01.818 Encounter for other preprocedural examination
CPT/HCPCS: 80307; 82040; 82565; 82947; 85025; 86850; 86900; 86901; 87081

== ENCOUNTER 2022-08-09 00:56 | Day surgery (SDC) | payer MEDICARE, SELFPAY ==
[2022-07-26 11:03] VITALS: BMI 38.2
--- NOTE | 2022-07-26 11:28 | PC.NURSE ---
Report to the Outpatient Waiting Room, entrance under the green pavilion located off [facility], at time __6:00AM on date _08/09/22 . Planned Procedure Time: __7:30AM . Time changes happen often and if your time is changed the preop area will call you the afternoon before. - You and your visitor will be asked to self-screen and do not enter if you have any COVID symptoms. - Only one visitor is requested with a max of two and NO children visitors are allowed at this time. - The patient visitor may be requested to leave or wait in car when not with patient due to distancing restrictions. - A mask is optional within the hospital. Patients may have clear liquids (water, carbonated beverages, clear teas, apple juice) until 3 hours prior to surgery with a maximum of 20 ounces. - No food from midnight until time of surgery Take the following medications with a SIP of water the morning of surgery: ___NONE Medications to discontinue per physician ___HOLD ALL VITAMINS/SUPPLEMENTS 3 DAYS PRE-OP Date to take last dose____08/05/22 Please no make-up, nail mohawk, hairspray, perfume, deodorant, or body powder the day of surgery. No jewelry (including any body piercings) or valuables the day of surgery, leave them at home. Please take a shower or bath the night before, or the morning of, surgery with an antibacterial soap. Wear comfortable, loose fitting clothing. Children are encouraged to wear pajamas. - Jewelry must be removed prior to entering the operating room. Rings and piercings that are not removed may be cut off. - The hospital will not accept responsibility for valuables. - Please leave all valuables, including medications, at home the day of surgery. If you are going home after surgery, a licensed customer service driver must drive you home. - NO public transportation without another adult if you receive anesthesia. - We recommend that an adult stay with you for 24 hours following discharge. - We also recommend that you do not drive, make important decision, drink alcoholic beverages, or take any drugs that were not prescribed by your health care provider for at least 24 hours after your discharge time. Follow any additional instructions given to you from your surgeon. If you or anyone in your household have experienced Covid symptoms in the past week, please notify your surgeon or the nurse liaison at the phone number below for possible testing. Telephone instructions given to _PATIENT and asked if any additional questions and then verbalized understanding. Patient advised to call surgeon office or pre surgery nurse liaison [phone] if any additional questions.
[2022-08-09] VITALS (18 sets, daily range): BP systolic 96–136; BP diastolic 62–94; PULSE 82–105; RESP 12–20; TEMP 35.6–37.1; O2SAT 92–100
--- NOTE | ~2022-08-09 | XR_ITS ---
Left Knee Technique: Portable AP and crosstable lateral views Clinical History: Status post TKR Findings: Patient is status post total knee replacement. Orthopedic hardware alignment appears anatom ic. No hardware complication is evident. Subcutaneous emphysema and swelling is likely postoperative in nature. No acute osseous fracture is seen. Impression: Status post total knee replacement, without evidence of hardware complication. Reviewed, dictated and finalized at location . HEALTH ASSISTANT Impression: Status post total knee replacement, without evidence of hardware complication.
[2022-08-09] MEDS: ACETAMINOPHEN 500 MG TABLET 1000 MG PO (06:18)
[2022-08-09] MEDS: TRANEXAMIC ACID 1,000MG/ISO100 1,000 MG/100 ML BAG 200 MG IVPB (07:03)
[2022-08-09] MEDS: SCOPOLAMINE 1.5 MG PATCH TRANSDERM (07:13)
[2022-08-09] MEDS: LACTATED RINGERS 1,000 ML 30 ML IV CONT ×2 (07:13→09:39)
--- NOTE | 2022-08-09 07:16 | WPDHPUPDATE1 ---
History and Physical Update Update Date/Time: 08/09/22 07:16 History and Physical has been reviewed, including an updated exam of the patient. There are NO changes in the patient's condition. Risks, benefits, and alternatives have been discussed and questions answered. Patient agrees to proceed with procedure.
[2022-08-09] MEDS: ceFAZolin 2 GM/D5W 50 ML 2 GM/50 ML BAG IVPB ×3 (07:27→22:51)
--- NOTE | 2022-08-09 08:29 | WPDANESPNB ---
Anes - Peripheral Nerve Block Date/Time: 08/09/22 08:29 I have discussed with the patient/family/POA the placement of a peripheral nerve block for post-operative pain management, including associated risks, benefits, complications, and side effects. Alternative methods of post-operative analgesia were detailed. Questions were solicited and answers provided to the satisfaction of the patient/family/POA. Time-Out: A pre-procedural Time-Out was completed immediately before starting the procedure and confirmed: Patient Identification, Site, Procedure, Patient Position and the Availability of Requisite Equipment. Clinical Indications: Acute post-operative pain management requested by the operative surgeon. Nerve Block Insertion Note Anes-nerve block: adductor canal left Patient position: supine Skin prep: chlorhexidine Needle: 22 gauge, stimulating, insulated echogenic needle. Needle length: 80 mm Technique: ultrasound Technique comment: mid 2mg fent 100mcg Injectate: bupivacaine 0.5% with epi 5 mcg/ml (30ml) Observations: tolerated well Complications: none Procedure start time:: 716 Procedure end time:: 723
--- NOTE | 2022-08-09 08:30 | WPDANESEPPF ---
Anes - Initial Pre Proc Eval Procedure: Operation Date: 08/09/22 07:30 Proposed Procedures p Left Total Knee Arthroplasty - Abdoul Luis MD Date/Time: 08/09/22 08:31 Surgeon: Abdoul Luis MD Pre Op Diagnosis: primary oa left knee Patient Data Age: 56 Gender: F Height: 1.6 m Weight: 99 kg Last Vital Signs Temp 36.6 C 08/09/22 06:47 Pulse 87 08/09/22 06:47 Resp 16 08/09/22 06:47 BP 134/94 H 08/09/22 06:47 Pulse Ox 99 08/09/22 06:47 O2 Del Method Room Air 08/09/22 06:47 Allergies Allergy/AdvReac Type Severity Reaction Status Date / Time adhesive tape Allergy Mild SKIN Verified 08/09/22 06:16 IRRITATION Home Medications Medication Instructions Recorded Confirmed Type pramipexole 1.5 mg tablet 1.5 mg PO HS 08/27/21 08/09/22 History sumatriptan succinate 6 mg/0.5 mL 6 mg subcut ONCE PRN Migraine 10/31/21 07/30/22 History subcutaneous cartridge (refill) Headache acetaminophen 500 mg tablet 1,000 mg PO Q6H PRN Pain 07/26/22 08/09/22 History cyclobenzaprine 10 mg tablet 10 mg PO BID PRN Muscle Spasm 07/26/22 08/09/22 History wmicwudhpawq-Ad-bpsn-minerals 1 tablet PO DAILY 07/26/22 08/09/22 History phentermine 37.5 mg tablet 37.5 mg PO DAILY 07/26/22 08/09/22 History Patient hx anesthesia problems: none Family hx anesthesia problems: none Results Review: All pre-operative results and documents have been reviewed as part of the pre-operative evaluation. [facility] Past Medical History Medical History Arthritis Bulging disc Lumbar Degenerative disc disease Depression GERD (gastroesophageal reflux disease) HTN (hypertension) IBS (irritable bowel syndrome) Morbid obesity with BMI of 40.0-44.9, adult Obesity Ovarian cyst Surgical History Surgical History H/O: hysterectomy History of appendectomy History of orthopedic surgery X3 Family History Family History Mother Lung cancer COPD (chronic obstructive pulmonary disease) Father Bone cancer Heart attack Arthritis Sibling Heart attack Other Heart disease Hypertension Social History Social History Smoking packs per day: 1 Smoking cigarettes per day: 20.0 Years smoked: 10 Smoking pack-years: 10.00 Smoking status: Former smoker Tobacco type: cigarettes Second hand tobacco smoke exposure: No Smoking end date: 02/09/22 Additional smoking assessment comments: STATES OCCASIONALLY CHEATING LAST CIG 02/26/22-LAST CIG 02/26/22 CONFIRMED Alcohol intake: unknown Drinks per week: 2 Substance use: never Substance use type: does not use Lack of Transportation: No Lack of Food: Never True Current Housing: I Have Housing Concerned About Future Housing: No Difficulty Paying Gas/Electric Bills: No Difficulty Paying for Meds: No Currently Unemployed: No Education: High School Diploma/GED Difficulty w/ Childcare or Family Care: No Living arrangements: with family Additional living arrangements comments: [facility] Spiritual care concerns: No Comments late entry Anes - Eval Final PreProcedure Day of Procedure 08/09/22 08:31 Patient weight: obese Heart: regular rate and rhythm Lungs: decreased breath sounds Airway: Mallampati scale class II Neurological: alert and oriented Last oral intake: >/= 8 hours ASA classification: III Emergent: no Anesthetic plan: proceed Anesthesia type and monitoring: general LMA and standard monitoring Results Review: All pre-operative results and documents have been reviewed as part of the pre-operative evaluation. Informed Consent: The patient's anesthetic plan and its attendant risks and benefits were discussed with the patient/family/POA. Questions were solicited and answers provided to the
[2022-08-09] MEDS: GENTAMICIN BONE CEMENT REFOBACIN 1 EACH TOPICAL (08:48)
[2022-08-09] MEDS: fentaNYL CITRATE INJ (*CRX) 100 MCG/2 ML VIAL 25 MCG IV PUSH ×5 (09:56→10:40)
--- NOTE | 2022-08-09 10:11 | SUR.PHASEI ---
1010- medicated for pain. ice to knee. xrays done.
[2022-08-09] MEDS: HYDROmorphone HCL INJ (*CRX) 1 MG/ML SYR 0.5 MG IV PUSH ×4 (10:55→11:40)
--- NOTE | 2022-08-09 12:09 | W.PM.PROC2 ---
Procedure Note - Detailed Date of Procedure 08/09/22 Pre-op Diagnosis Primary oa left knee Post-op Diagnosis Same Procedure Performed Total knee arthroplasty, left. Surgeon Abdoul Luis MD Front End Software Engineer Mignon Mendosa PA-C Anesthesia General and Regional (subsartorial block) Findings Extensive degenerative changes were confirmed. Bone quality was quite satisfactory. Mild medial release required as there was significant pseudolaxity. Significant medial tibial erosion required a minimal resection. Sizing was consistent with the contralateral knee. Femoral external rotation placed at 4?. Distal resection 5?. 7 mm resection, due to the significant wear. Description of Procedure The patient was brought to the operating room. A general anesthetic was administered. The leg was prepped and draped in the usual sterile fashion. The limb was elevated and the tourniquet inflated to 300 mmHg during initial exposure. A longitudinal incision was created along the medial border of the patella and patellar tendon, and a trivector approach to the knee was performed. A mild medial release was taken. The knee was then flexed. The osteophytes were carefully removed. The intramedullary guide was placed in the femoral canal. The distal femoral resection was then taken with the oscillating saw. The collateral ligaments were carefully protected. The tibia was carefully exposed. The jig was applied, and the proximal tibia was resected according to preoperative plan. The knee was balanced in extension. Appropriate releases were taken where needed. The anterior and posterior cruciate ligament and meniscal remnants were removed. The patella was measured. Patellar resection was carried out with the oscillating saw. The lug holes drilled. The femur was sized and rotation assessed using a combination of gap balancing, posterior referencing, and the AP axis. The 4 in 1 cutting block, and box cut were used to finish the femoral cuts after equal gaps were assured. The osteophytes were carefully removed from the back of the knee. The knee was copiously irrigated with antibiotic solution periodically throughout the procedure. The meniscal remnants were removed. The spacer block was used to confirm equal flexion and extension gaps. No further releases were needed. The tibia was sized and broached. The bony surfaces were prepared for cementing with pulsatile lavage. The real tibia was cemented into position. The femur was press-fit. The patella was press-fit. Excess cement was carefully removed. Patellar tracking was carefully assessed. No additional releases were required. Copious irrigation then performed. The wound was closed with #1 Vicryl suture, #2, 2-0, and 3-0 barbed suture, followed by Steri-Strips. A sterile bulky dressing was applied. Meticulous hemostasis was maintained throughout the procedure, and the bipolar cautery device was used. The pain relieving mixture was injected into the periarticular tissues during the procedure. There were no complications. The patient was extubated and brought to the recovery room in stable condition after the application of sterile dressing with Noble bandage. Implants XOJETathlon knee system, low profile cemented tibia size 4, press-fit cruciate retaining femoral component size 4 ,and an 11 mm cruciate retaining polyethylene insert. 32mm asymmetric metal backed tritanium patella component. Estimated Blood Loss 100 Drains No Pathology None sent Complications No immediate complications Condition Stable Disposition PACU [facility] Billing Surgery - Charge Forward: Surgery Billing
--- NOTE | 2022-08-09 12:35 | ADMGEN ---
This patient, Noa Condon, was admitted to [facility] Room 323-01. Patient/family oriented to hospital policies and general routines including ID bracelet, bed and alarms, visiting hours, pain management, procedures, bathroom and other care routines, personal items, smoking policy, room service/diet, and visiting hours. Information on how to activate the Rapid Response Team has been discussed. Patient/Family are encouraged to report perceived risks to care and to ask questions if they do not understand what they are told or what they should do.
[2022-08-09] MEDS: SODIUM CHLORIDE 0.9% IV 1,000 ML 125 ML IV CONT (13:42)
[2022-08-09] MEDS: polyethylene glycoL 3350 17 GM POWD.PACK PO (13:55)
[2022-08-09] MEDS: SENNA/DOCUSATE SODIUM TABLET 2 TAB PO ×2 (13:56→17:51)
[2022-08-09] MEDS: ASPIRIN 81 MG ENTERIC TABLET PO ×2 (13:56→21:26)
[2022-08-09] MEDS: MELOXICAM 7.5 MG TABLET PO ×2 (13:56→21:26)
[2022-08-09] MEDS: FAMOTIDINE 20 MG TABLET PO ×2 (13:56→21:27)
[2022-08-09] MEDS: ONDANSETRON INJ 4 MG/2 ML VIAL IV PUSH (14:10)
[2022-08-09] MEDS: PRAMIPEXOLE 0.5 MG TABLET 1.5 MG PO (21:26)
[2022-08-09] MEDS: oxyCODONE HCL (*CRX) 5 MG TAB IR 10 MG PO (21:53)
[2022-08-10 02:26] VITALS: BP 112/73; PULSE 89; RESP 18; TEMP 36.9; O2SAT 99
[2022-08-10] MEDS: oxyCODONE HCL (*CRX) 5 MG TAB IR PO (06:25)
[2022-08-10] MEDS: ceFAZolin 2 GM/D5W 50 ML 2 GM/50 ML BAG IVPB (06:25)
[2022-08-10 06:26] VITALS: BP 125/88; PULSE 97; RESP 20; TEMP 36.9; O2SAT 97
[2022-08-10 06:31] LABS: Basophils Percent Auto 0.3 % (0.2-1.2); Eosinophils Absolute Auto 0.1 K/mm3 (0-0.3); Eosinophils Percent Auto 1.4 % (0-4.4); Hemoglobin 10.6 g/dL (12.0-15.0); Immature Granulocyte Absolute 0.02 K/mm3 (0.00-0.031); Immature Granulocyte Percent A 0.3 % (0-0.5); Lymphocytes Absolute Auto 2.01 K/mm3 (0.9-3.2); Lymphocytes Percent Auto 26.4 % (18.3-44.2); Mean Corpuscular HGB Conc 33.1 g/dl (32-36); Mean Corpuscular Hemoglobin 31.4 pg (26-34); Mean Corpuscular Volume 94.7 fl (80-100); Mean Platelet Volume 9.2 fl (7.4-10.4); Monocytes Absolute Auto 0.6 K/mm3 (0.1-0.6); Monocytes Percent Auto 7.5 % (2.6-8.5); Neutrophils Absolute Auto 4.9 K/mm3 (1.3-6.7); Neutrophils Percent Auto 64.1 % (45.5-73.1); Platelet Count Result 195 k/mm3 (150-375); Red Blood Count 3.38 M/mm3 (4.2-5.4); Red Cell Distribution Width 12.5 % (11.5-14.5); White Blood Count 7.6 K/mm3 (4.5-10.0)
[2022-08-10 06:45] LABS: Anion Gap 6 mmol/L (8-16); Blood Urea Nitrogen 15 mg/dL (7-17); Calcium 7.9 mg/dL (8.4-10.2); Carbon Dioxide 26 mmol/L (22-30); Chloride 102 mmol/L (98-107); Estimated CRCL calculation 118 ml/min; Estimated Glomerular Filt Rate > 60; Glucose 100 mg/dL (65-110); Potassium 3.6 mmol/L (3.4-5.0); Sodium 134 mmol/L (137-145)
[2022-08-10 07:46] LABS: Glucose Point of Care 113 mg/dl (65-105)
--- NOTE | 2022-08-10 08:35 | PM.DS ---
DS: Admitting Diagnosis Discharge Date 08/10/22 Admitting Diagnosis OA knee Left DS: Discharge Diagnosis Discharge Diagnosis (1) Status post total left knee replacement: Code(s): Z96.652 - Presence of left artificial knee joint Status: Acute Assessment and Plan: Postop day 1: Left total knee arthroplasty. Patient tolerated procedure well. No complications. Pain manageable with pain medication. No numbness or tingling. We had a lengthy discussion regarding postoperative wound care, limitations, expectations, and exercises. Patient shows good understanding. She has had initial physical therapy and is tolerating it well. DVT prophylaxis: 81 mg baby aspirin b.i.d. for 14 days. Pain medication: Percocet. Meloxicam. Prednisone. Patient has followup appointment with Dr. Luis in 3 weeks. DS: Summary Hospital Course Reason for hospitalization: Total knee arthroplasty Hospital Course: Patient tolerated procedure well. Has had initial PT/OT. Status at Discharge Functional status at discharge: uses cane/walker Overall status at discharge: patient is progressing back to baseline Time Spent with Patient Time attestation: Total time spent providing and/or coordinating discharge services: Exam Narrative: 56-year-old overweight female. Resting comfortably in bed. Alert and oriented x3. No acute distress. Wearing compression socks bilaterally. Dressing intact without drainage. Mild swelling. No ecchymosis. No erythema. No hematoma. Range of motion limited due to pain. Calf nontender. Neurologic status intact. No varicosities. Distal pulses palpable. DS: Data Data Completed and Pending Labs on day of discharge: Labs from last 24 hours 08/10/22 08/10/22 08/10/22 07:43 06:20 06:20 WBC 7.6 RBC 3.38 L Hgb 10.6 L D Hct 32.0 L MCV 94.7 MCH 31.4 MCHC 33.1 RDW 12.5 Plt Count 195 MPV 9.2 Immature Gran % (Auto) 0.3 Neut % (Auto) 64.1 Lymph % (Auto) 26.4 Cuming % (Auto) 7.5 Eos % (Auto) 1.4 Baso % (Auto) 0.3 Lymph # (Auto) 2.01 Cuming # (Auto) 0.6 Eos # (Auto) 0.1 Baso # (Auto) 0.0 Abs Immat Gran (auto) 0.02 Absolute Neuts (auto) 4.9 Absolute Nucleated RBC 0.0 Nucleated RBC % 0.0 Sodium 134 L Potassium 3.6 Chloride 102 Carbon Dioxide 26 Anion Gap 6 L BUN 15 D Creatinine 0.50 L Estim Creat Clear Calc 118 Estimated GFR > 60 Glucose 100 POC Capillary Glucose 113 H Calcium 7.9 L Discharge Plan Discharge Patient Disposition: Home, Self-Care Discharge Instructions: see green instruction sheets Stand Alone Forms: General Discharge Instructions Follow-up/Referrals: Mignon Mendosa PA [[facility]ician [facility]] - Discharge Medications: New meloxicam 15 mg tablet 15 mg PO DAILY Qty: 30 0RF Rx Instructions: Cut in half. Take 1/2 in morning and 1/2 at night. Take with food. Stop if stomach upset. prednisone 5 mg tablet 5 mg PO DAILY 21 Days Qty: 21 0RF aspirin 81 mg tablet,delayed release (DR/EC) 81 mg PO BID 14 Days Qty: 28 0RF oxycodone-acetaminophen 5-325 mg tablet 1 - 2 tablet PO Q4-6H MDD 6 PRN (Reason: pain) Qty: 30 0RF Continued pramipexole 1.5 mg Tablet 1.5 mg PO HS sumatriptan succinate 6 mg/0.5 mL cartridge 6 mg subcut ONCE PRN (Reason: Migraine Headache) Rx Instructions: may repeat dose once in 1 hour if not relieved cyclobenzaprine 10 mg tablet 10 mg PO BID PRN (Reason: Muscle Spasm) phentermine 37.5 mg tablet 37.5 mg PO DAILY cprpelzktrmx-Qc-xkhz-minerals Tablet 1 tablet PO DAILY Held acetaminophen 500 mg Tablet 1,000 mg PO Q6H PRN (Reason: Pain) Hold Instructions: Resume on 09/06/22.
[2022-08-10] MEDS: polyethylene glycoL 3350 17 GM POWD.PACK PO (09:47)
[2022-08-10] MEDS: predniSONE 5 MG TABLET PO (09:47)
[2022-08-10] MEDS: CYCLOBENZAPRINE HCL 10 MG TABLET PO (09:47)
[2022-08-10] MEDS: ASPIRIN 81 MG ENTERIC TABLET PO (09:47)
[2022-08-10] MEDS: MELOXICAM 7.5 MG TABLET PO (09:48)
[2022-08-10] MEDS: FAMOTIDINE 20 MG TABLET PO (09:48)
[2022-08-10] MEDS: SENNA/DOCUSATE SODIUM TABLET 2 TAB PO (09:48)
--- NOTE | 2022-08-10 11:10 | WPDANESPN ---
Anes - Prog Note Post-Op Date/Time: 08/10/22 11:10 Cardiovascular status: normal Respiratory status: normal Airway patency: baseline Mental status: baseline Post-Op hydration status: normal Vital Signs: Last Vital Signs Temp 36.9 C 08/10/22 06:26 Pulse 97 08/10/22 06:26 Resp 20 08/10/22 06:26 BP 125/88 08/10/22 06:26 Pulse Ox 97 08/10/22 06:26 O2 Del Method Room Air 08/10/22 09:48 O2 Flow Rate 3 08/09/22 12:22 Pain Score (VAS): 10/19 I/O: Intake & Output 08/09/22 08/10/22 08/10/22 23:59 07:59 15:59 Intake Total 1122 1050 360 Output Total 400 Balance 1122 650 360 Laboratory Tests 08/10/22 06:20 08/10/22 06:20 08/10/22 08/10/22 08/10/22 06:20 06:20 07:43 WBC 7.6 RBC 3.38 L Hgb 10.6 L D Hct 32.0 L MCV 94.7 MCH 31.4 MCHC 33.1 RDW 12.5 Plt Count 195 MPV 9.2 Immature Gran % (Auto) 0.3 Neut % (Auto) 64.1 Lymph % (Auto) 26.4 Calhoun % (Auto) 7.5 Eos % (Auto) 1.4 Baso % (Auto) 0.3 Lymph # (Auto) 2.01 Calhoun # (Auto) 0.6 Eos # (Auto) 0.1 Baso # (Auto) 0.0 Abs Immat Gran (auto) 0.02 Absolute Neuts (auto) 4.9 Absolute Nucleated RBC 0.0 Nucleated RBC % 0.0 Sodium 134 L Potassium 3.6 Chloride 102 Carbon Dioxide 26 Anion Gap 6 L BUN 15 D Creatinine 0.50 L Estim Creat Clear Calc 118 Estimated GFR > 60 Glucose 100 POC Capillary Glucose 113 H Calcium 7.9 L Post-procedural complaints: none Patient Feedback: Patient satisfied with anesthetic care.
[2022-08-10] MEDS: oxyCODONE HCL (*CRX) 5 MG TAB IR 10 MG PO (12:03)
== END 2022-08-10 12:09 | disposition home or self-care (01) ==
LOC: ANHSURGERY 09:06 → ANH3MEDSUR 12:54
PROVIDERS: Physician Assistant Surgical; PCP Family Medicine; Visit Provider Orthopaedic Surgery
PROC: (CPT 27447; principal; 2022-08-09 07:30)
DX: M17.12 Unilateral primary osteoarthritis, left knee (principal); G89.18 Other acute postprocedural pain; I10 Essential (primary) hypertension; K21.9 Gastro-esophageal reflux disease without esophagitis; F32.A Depression, unspecified; E66.9 Obesity, unspecified; Z68.38 Body mass index [BMI] 38.0-38.9, adult; Z72.0 Tobacco use; Z79.899 Other long term (current) drug therapy
CPT/HCPCS: 27447; 64447; 36415; 73560; 80048; 80307; 82040; 82565; 82947; 82948; 85025; 86850; 86900; 86901; 87081; 97110; 97116; 97161; 97165; 97530; 97535; A9270; C1713; C1776; J0131; J0171; J0330; J0690; J1100; J1170; J1885; J2250; J2270; J2405; J2704; J2795; J3010; J7030; J7120; J7512

== ENCOUNTER → 2023-06-25 15:02 | Outpatient (CLI) | payer MEDICARE, SELFPAY ==
--- NOTE | ~2023-06-25 | MM_ITS ---
EXAMINATION: MM screening [facility] BI w naomie HISTORY: Screening mammogram TECHNIQUE: Craniocaudal and mediolateral oblique 3-D tomosynthesis images were obtained and synthetic 2-D images were generated. CAD analysis was submitted and interpreted. COMPARISON: 02/08/2022, 09/08/2015 BREAST PARENCHYMAL COMPOSITION: There are scattered areas of fibroglandular density. FINDINGS: No suspicious mass, calcification, or architectural distortion are identified in either [place] ast to suggest malignancy. There has been no suspicious interval change. IMPRESSION: 1. No mammographic evidence of malignancy. 2. Recommend routine screening mammography in one year. BI-RADS Category 1: Negative Reviewed, dictated and finalized at location A. [employer]
== END ==
PROVIDERS: PCP Physician Assistant; Visit Provider Family Medicine
DX: Z12.31 Encounter for screening mammogram for malignant neoplasm of breast (principal)
CPT/HCPCS: 77063; 77067

== ENCOUNTER 2023-07-16 12:29 | Outpatient (CLI) | payer MEDICARE, SELFPAY ==
--- NOTE | 2023-07-16 14:45 | NEURO_ITS ---
Impression: # Complains of numbness in upper and lower extremities # Bilateral Carpal Tunnel Syndrome, right more than left. # Normal Nerve Conduction Study in lower extremities. # Normal needle/EMG. Nerve Conduction Studies Anti Sensory Summary Table Stim Site NR Peak (ms) P-T Amp (?V) Site1 Site2 Delta-P (ms) Dist (cm) Nain (m/s) Left Median Anti Sensory (2-3nd Digit) Wrist 3.1 51.2 Wrist 2-3nd Digit 3.1 14.0 45 Wrist 3.2 35.4 Wrist 2-3nd Digit 3.1 14.0 45 Right Median Anti Sensory (2-3nd Digit) Wrist 7.5 31.1 Wrist 2-3nd Digit 7.5 14.0 19 Wrist 5.5 15.9 Wrist 2-3nd Digit 7.5 14.0 19 Left Radial Anti Sensory (Base 1st Digit) Wrist 1.8 27.4 Wrist Base 1st Digit 1.8 0.0 Right Radial Anti Sensory (Base 1st Digit) Wrist 1.9 32.3 Wrist Base 1st Digit 1.9 0.0 Left Sup Fibular Anti Sensory (Ant Lat Mall) 14 cm 2.4 17.3 14 cm Ant Lat Mall 2.4 16.0 67 Right Sup Fibular Anti Sensory (Ant Lat Mall) 14 cm 2.8 9.3 14 cm Ant Lat Mall 2.8 16.0 57 Left Sural Anti Sensory (Lat Mall) Calf 3.2 7.3 Calf Lat Mall 3.2 16.0 50 Right Sural Anti Sensory (Lat Mall) Calf 3.3 2.9 Calf Lat Mall 3.3 16.0 48 Left Ulnar Anti Sensory (5th Digit) Wrist 2.3 22.0 Wrist 5th Digit 2.3 14.0 61 Right Ulnar Anti Sensory (5th Digit) Wrist 2.3 27.4 Wrist 5th Digit 2.3 14.0 61 Motor Summary Table Stim Site NR Onset (ms) O-P Amp (mV) Site1 Site2 Delta-0 (ms) Dist (cm) Nain (m/s) Left Median Motor (Abd Poll Brev) Wrist 4.3 4.2 Elbow Wrist 4.4 27.0 61 Elbow 8.7 3.5 Right Median Motor (Abd Poll Brev) Wrist 6.5 2.0 Elbow Wrist 4.8 28.0 58 Elbow 11.3 1.9 Left Peroneal Motor (Vastus Med) Ankle 4.1 1.8 Popit Ankle 8.1 41.0 51 Popit 12.2 1.4 Right Peroneal Motor (Vastus Med) Ankle 4.1 4.3 Popit Ankle 7.6 37.0 49 Popit 11.7 4.2 Left Tibial Motor (Abd Roth Brev) Ankle 4.5 0.7 Knee Ankle 8.3 41.0 49 Knee 12.8 1.7 Right Tibial Motor (Abd Roth Brev) Ankle 4.5 3.5 Knee Ankle 8.0 39.0 49 Knee 12.5 1.7 Left Ulnar Motor Run #2 (Abd Dig Minimi) Wrist 2.5 5.0 A Elbow Wrist 4.7 29.0 62 A Elbow 7.2 4.2 Right Ulnar Motor (Abd Dig Minimi) Wrist 2.7 5.8 A Elbow Wrist 5.0 29.0 58 A Elbow 7.7 5.8 F Wave Studies NR F-Lat (ms) L-R F-Lat (ms) Left Median (Mrkrs) (Abd Poll Brev) 27.88 4.28 Right Median (Mrkrs) (Abd Poll Brev) 32.16 4.28 Left Peroneal (Mrkrs) (EDB) 49.22 0.32 Right Peroneal (Mrkrs) (EDB) 48.91 0.32 Left Tibial (Mrkrs) (Abd Hallucis) 48.84 0.01 Right Tibial (Mrkrs) (Abd Hallucis) 48.85 0.01 Left Ulnar (Mrkrs) (Abd Dig Min) 27.34 0.14 Right Ulnar (Mrkrs) (Abd Dig Min) 27.21 0.14 EMG Side Muscle Nerve Root Ins Act Fibs Amp Dur Recrt Comment Right 1stDorInt Ulnar C8-T1 Nml Nml Nml Nml Nml Right Ext Indicis Radial (Post Int) C7-8 Nml Nml Nml Nml Nml Right Ext Digitorum Radial (Post Int) C7-8 Nml Nml Nml Nml Nml Right BrachioRad Radial C5-6 Nml Nml Nml Nml Nml Right PronatorTeres Median C6-7 Nml Nml Nml Nml Nml Right Abd Poll Brev Median C8-T1 Nml Nml Nml Nml Nml Right AntTibialis Dp Br Fibular L4-5 Nml Nml Nml Nml Nml Right Gastroc Tibial S1-2 Nml
== END 2023-07-16 12:30 | disposition home or self-care (01) ==
PROVIDERS: PCP Physician Assistant; Visit Provider Plastic Surgery
DX: R20.0 Anesthesia of skin (principal); G56.03 Carpal tunnel syndrome, bilateral upper limbs
CPT/HCPCS: 95886; 95913

== ENCOUNTER 2023-10-10 13:47 | Outpatient (CLI) | payer MEDICARE, SELFPAY ==
--- NOTE | ~2023-10-10 | US_ITS ---
EXAMINATION: US art doppler w press LE BI DATE: 10/10/2023 15:02 INDICATION: Peripheral vascular disease with foot pain TECHNIQUE: Segmental pressures and plethysmographic and Doppler waveforms of the brachial and lower e xtremity arteries were obtained. COMPARISON: None. FINDINGS: Right and left brachial artery pressures of 113 mm Hg and 117 mm Hg, respectively, are concordant (no rmal difference <= 30 mmHg). The right ankle-brachial index (ANDRES) is 1.39 (normal >= 0.9-1). The right great toe-brachial index (T BI) is 0.58 (normal >= 0.6-0.8). The right lower extremity segmental pressure gradients are increased between the right hapes-lwb-xvua popliteal artery and the right dorsalis pedis artery (normal gradie nts <= 20-30 mmHg between adjacent levels on the same leg or the same levels on the two legs). Arteri al waveforms are triphasic at the right common femoral artery and biphasic at the more distal arterie s in the right lower limb with brisk systolic upstrokes throughout. The left ANDRES is 1.27. The left TBI is 0.74. The left lower extremity segmental pressure gradients are increased between the left fwrtu-oxa-gfdc popliteal artery and the contralateral right popliteal art river. Arterial waveforms are triphasic at the left superficial femoral, popliteal and posterior tibial arteries and biphasic at the left common femoral and dorsalis pedis arteries with brisk systolic ups trokes throughout. IMPRESSION: 1. Mild arterial occlusive disease to the right lower limb with normal right ANDRES but mildly decreased right TBI. 2. No significant arterial occlusive disease to the left lower limb with normal left ANDRES and TBI. Reviewed, dictated and finalized at location L. ENTION PLANNER IMPRESSION: 1. Mild arterial occlusive disease to the right lower limb with normal right AB I but mildly decreased right TBI. 2. No significant arterial occlusive disease to the left lower limb with normal left ANDRES and TBI.
== END 2023-10-10 13:48 | disposition home or self-care (01) ==
PROVIDERS: PCP Family Medicine; Visit Provider Physician Assistant
DX: I73.9 Peripheral vascular disease, unspecified (principal)
CPT/HCPCS: 93923

== ENCOUNTER 2023-10-27 06:04 | Emergency (ER) | payer MEDICARE, SELFPAY ==
--- NOTE | ~2023-10-27 | XR_ITS ---
EXAMINATION: XR ankle LT min 3V, XR foot LT min 3V DATE: 10/27/2023 07:07 INDICATION: Pain at the fifth toe and over the dorsum of the foot post injury. Left ankle pain and pa lpitations. TECHNIQUE: 1. Anteroposterior, mortise, additional oblique and lateral view of the left ankle were obtained. 2. Dorsoplantar, two oblique and lateral views of the left foot were obtained. COMPARISON: None. FINDINGS: Mild hallux valgus with associated bunion including mild hypertrophic and cystic change at the medial head of the first metatarsal with focal mild overlying soft tissue swelling. Mild hypertrophic Align ment of the left foot and ankle is otherwise normal. Small ossific density at the dorsal rim of the p roximal navicular most likely a normal variant os supra naviculare but correlate for point tenderness . No other fractures identified. Mild osteoarthritis at the first metatarsophalangeal and a few of th e tarsal metatarsal joints. Moderate-sized plantar calcaneal spur. No ankle joint effusion. Mild soft tissue swelling over the dorsum of the midfoot and about the fifth toe. IMPRESSION: 1. Small ossicle along the dorsal rim of the proximal navicular with typical location for an os supra naviculare however there is overlying soft tissue swelling in the differential would include capsula r avulsion fracture. Correlate for point tenderness at this location. Reviewed, dictated and finalized at location A. IMPRESSION: 1. Small ossicle along the dorsal rim of the proximal navicular with typical lo cation for an os supra naviculare however there is overlying soft tissue swelli ng in the differential would include capsular avulsion fracture. Correlate for point tenderness at this location.
[2023-10-27 06:09] VITALS: BP 144/91; PULSE 95; RESP 18; TEMP 36.4; O2SAT 94
[2023-10-27 06:42] VITALS: BP 144/99; PULSE 100; RESP 16; O2SAT 98
--- NOTE | 2023-10-27 08:10 | ED.LOWEXIN ---
HPI - Extremity Injury (Lower) General Chief Complaint: Extremity Injury, Lower Stated Complaint: Stubbed toe and injured top of foot Time Seen by Provider: 10/27/23 07:05 History of Present Illness HPI Narrative: Patient is a 58-year-old female who presents ER with left 5th digit pain. She is walking in her home when she struck a chair. [place] a pop. She is still able to bear weight. No numbness or tingling. No additional concerns. Related Data Home Medications Medication Instructions Recorded Confirmed sumatriptan succinate 6 mg/0.5 mL 6 mg subcut ONCE PRN Migraine 10/31/21 05/22/23 subcutaneous cartridge (refill) Headache szbukziayztz-Sc-szdl-minerals 1 tablet PO DAILY 07/26/22 05/22/23 Allergies Allergy/AdvReac Type Severity Reaction Status Date / Time adhesive tape Allergy Mild SKIN Verified 09/27/23 10:13 IRRITATION Review of Systems Musculoskeletal: Musculoskeletal: Reports arthralgias and Denies joint swelling Integumentary/Breasts: Skin/Breast: Reports system reviewed and no additional complaints, except as docu Neurologic: Reports system reviewed and no additional complaints, except as documented [facility], [facility] Past Medical History Medical History Arthritis Degenerative disc disease Depression GERD (gastroesophageal reflux disease) HTN (hypertension) IBS (irritable bowel syndrome) Migraine headache Surgical History Surgical History History of appendectomy History of total abdominal hysterectomy and bilateral salpingo-oophorectomy (~09/2002) History of total left knee replacement (~08/09/22) History of total right knee replacement (~05/01/22) Hx of arthroscopy of left knee 2000 Hx of arthroscopy of right knee 1991, 1996 Family History Family History Mother Lung cancer COPD (chronic obstructive pulmonary disease) Father Bone cancer Heart attack Arthritis Sibling Heart attack Other Heart disease Hypertension Social History Social History Smoking packs per day: 1 Smoking cigarettes per day: 20.0 Years smoked: 10 Smoking pack-years: 10.00 Smoking status: Former smoker Tobacco type: cigarettes Second hand tobacco smoke exposure: No Smoking end date: 02/09/22 Additional smoking assessment comments: STATES OCCASIONALLY CHEATING LAST CIG 02/26/22-LAST CIG 02/26/22 CONFIRMED Alcohol intake: unknown Drinks per week: 2 Substance use: never Substance use type: does not use Lack of Transportation: No Lack of Food: Never True Current Housing: I Have Housing Concerned About Future Housing: No Difficulty Paying Gas/Electric Bills: No Difficulty Paying for Meds: No Currently Unemployed: No Education: High School Diploma/GED Difficulty w/ Childcare or Family Care: No Living arrangements: with family Additional living arrangements comments: [facility] Occupation/Education: unemployed Gender identity (if verbalized by the patient): Female Sexual Orientation (if Verbalized by the Patient): Straight or Heterosexual Spiritual care concerns: No Exam Narrative: GENERAL: Well-appearing, well-nourished, and in no acute distress. HEAD: Normocephalic, atraumatic. HEART: Regular rate and rhythm. Normal peripheral pulses. EXTREMITIES: Normal range of motion. No edema. Mild tenderness over the left 5th digit without deformity or bruising. No 5th metatarsal tenderness or ankle tenderness. No tenderness over the navicular bone. SKIN: Warm, dry, no rash. NEURO: Alert and oriented x3. PSYCH: Normal mood and affect. Course Course Emergency Course: Discussed imaging results. No tenderness over the midfoot or navicular bone where there is radiographic abnormality. Discussed conservative treatment. Discharge. Vital Signs Vital signs:
== END 2023-10-27 08:22 | disposition home or self-care (01) ==
PROVIDERS: Emergency Provider Emergency Medicine; PCP Family Medicine
DX: S93.505A Unspecified sprain of left lesser toe(s), initial encounter (principal); I10 Essential (primary) hypertension; Z87.891 Personal history of nicotine dependence; W22.03XA Walked into furniture, initial encounter; Y92.009 Unspecified place in unspecified non-institutional (private) residence as the place of occurrence of the external cause
CPT/HCPCS: 73610; 73630; 99283

== ENCOUNTER 2024-06-03 02:55 | Day surgery (SDC) | payer MEDICARE, SELFPAY ==
[2024-05-21 11:38] VITALS: BMI 37.0
[2024-06-03 12:49] VITALS: BP 146/96; PULSE 91; RESP 18; TEMP 36.1; O2SAT 100
[2024-06-03] MEDS: LACTATED RINGERS 1,000 ML 150 ML IV CONT (13:04)
--- NOTE | 2024-06-03 13:31 | WPDANESEPPF ---
Anes - Initial Pre Proc Eval Procedure: Operation Date: 06/03/24 14:30 Proposed Procedures p Screening Colonoscopy - Kevin Lopez MD Date/Time: 06/03/24 13:31 Surgeon: Kevin Lopez MD Pre Op Diagnosis: screening neoplasm of colon Patient Data Age: 58 Gender: F Height: 1.6 m Weight: 102.5 kg Last Vital Signs Temp 96.9 F L 06/03/24 12:49 Pulse 91 06/03/24 12:49 Resp 18 06/03/24 12:49 BP 146/96 H 06/03/24 12:49 Pulse Ox 100 06/03/24 12:49 O2 Del Method Room Air 06/03/24 12:49 Allergies Allergy/AdvReac Type Severity Reaction Status Date / Time adhesive tape Allergy Mild SKIN Verified 06/03/24 12:46 IRRITATION Home Medications Medication Instructions Recorded Confirmed Type sumatriptan succinate 6 mg/0.5 mL 6 mg subcut ONCE PRN Migraine 10/31/21 06/03/24 History subcutaneous cartridge (refill) Headache lorazepam 0.5 mg tablet 0.5 mg PO DAILY PRN Anxiety 03/18/24 06/03/24 History Dulcolax (bisacodyl) 1 tablet BYMOUTH HS 05/21/24 06/03/24 History atorvastatin 20 mg tablet 20 mg PO DAILY 05/21/24 06/03/24 History pramipexole 1.5 mg tablet 1.5 mg PO DAILY 05/21/24 06/03/24 History Patient hx anesthesia problems: none Family hx anesthesia problems: none Results Review: All pre-operative results and documents have been reviewed as part of the pre-operative evaluation. [facility] Past Medical History Medical History Arthritis Degenerative disc disease Depression GERD (gastroesophageal reflux disease) HTN (hypertension) IBS (irritable bowel syndrome) Migraine headache Surgical History Surgical History History of appendectomy History of total abdominal hysterectomy and bilateral salpingo-oophorectomy (~09/2002) History of total left knee replacement (~08/09/22) History of total right knee replacement (~05/01/22) Hx of arthroscopy of left knee 2000 Hx of arthroscopy of right knee 1991, 1996 Family History Family History Mother Lung cancer COPD (chronic obstructive pulmonary disease) Father Bone cancer Heart attack Arthritis Sibling Heart attack Other Heart disease Hypertension Social History Social History Smoking packs per day: 0.5 Smoking cigarettes per day: 10.0 Years smoked: 10 Smoking pack-years: 5.00 Smoking status: Current every day smoker Tobacco type: cigarettes Second hand tobacco smoke exposure: No Smoking end date: 02/09/22 Additional smoking assessment comments: STATES OCCASIONALLY CHEATING LAST CIG 02/26/22-LAST CIG 02/26/22 CONFIRMED Alcohol intake: never Drinks per week: 2 Substance use: never Substance use type: does not use Do You Feel Safe in your Home?: Yes Lack of Transportation: No Lack of Food: Never True Current Housing: I Have Housing Concerned About Future Housing: No Difficulty Paying Gas/Electric Bills: No Difficulty Paying for Meds: No Currently Unemployed: No Education: High School Diploma/GED Difficulty w/ Childcare or Family Care: No Living arrangements: with family Additional living arrangements comments: [facility] Occupation/Education: unemployed Gender identity (if verbalized by the patient): Female Sexual Orientation (if Verbalized by the Patient): Straight or Heterosexual Spiritual care concerns: No Anes - Eval Final PreProcedure Day of Procedure 06/03/24 13:31 Patient weight: morbidly obese Heart: regular rate and rhythm Lungs: clear to auscultation Airway: Mallampati scale class II Neurological: alert and oriented Last oral intake: >/= 8 hours ASA classification: III Emergent: no Anesthetic plan: proceed Anesthesia type and monitoring: general GIVS and standard monitoring Results
--- NOTE | 2024-06-03 13:48 | PM.HPGS ---
History of Present Illness History of Present Illness Consent: Risks, benefits, and alternatives have been discussed and questions answered. Patient agrees to proceed with procedure. Chief complaint: screening neoplasm of colon Narrative: Noa Condon is a 58 year old female here for first screening colonoscopy Review of Systems Review of Systems: All systems reviewed & are unremarkable except as noted in HPI and below PMFSH Past Medical History Medical History (Updated 06/03/24 @ 13:49 by Kevin Lopez MD) Arthritis Colon cancer screening Degenerative disc disease Depression GERD (gastroesophageal reflux disease) HTN (hypertension) IBS (irritable bowel syndrome) Migraine headache Surgical History Surgical History History of appendectomy History of total abdominal hysterectomy and bilateral salpingo-oophorectomy (~09/2002) History of total left knee replacement (~08/09/22) History of total right knee replacement (~05/01/22) Hx of arthroscopy of left knee 2000 Hx of arthroscopy of right knee 1991, 1996 Family History Family History Mother Lung cancer COPD (chronic obstructive pulmonary disease) Father Bone cancer Heart attack Arthritis Sibling Heart attack Other Heart disease Hypertension Social History Social History Smoking packs per day: 0.5 Smoking cigarettes per day: 10.0 Years smoked: 10 Smoking pack-years: 5.00 Smoking status: Current every day smoker Tobacco type: cigarettes Second hand tobacco smoke exposure: No Smoking end date: 02/09/22 Additional smoking assessment comments: STATES OCCASIONALLY CHEATING LAST CIG 02/26/22-LAST CIG 02/26/22 CONFIRMED Alcohol intake: never Drinks per week: 2 Substance use: never Substance use type: does not use Do You Feel Safe in your Home?: Yes Lack of Transportation: No Lack of Food: Never True Current Housing: I Have Housing Concerned About Future Housing: No Difficulty Paying Gas/Electric Bills: No Difficulty Paying for Meds: No Currently Unemployed: No Education: High School Diploma/GED Difficulty w/ Childcare or Family Care: No Living arrangements: with family Additional [facility] comments[facility] Occupation/Education: unemployed Gender identity (if verbalized by the patient): Female Sexual Orientation (if Verbalized by the Patient): Straight or Heterosexual Spiritual care concerns: No Meds Home Medications and Allergies Home Medications Medication Instructions Recorded Confirmed Type sumatriptan succinate 6 mg/0.5 mL 6 mg subcut ONCE PRN Migraine 10/31/21 06/03/24 History subcutaneous cartridge (refill) Headache lorazepam 0.5 mg tablet 0.5 mg PO DAILY PRN Anxiety 03/18/24 06/03/24 History Dulcolax (bisacodyl) 1 tablet BYMOUTH HS 05/21/24 06/03/24 History atorvastatin 20 mg tablet 20 mg PO DAILY 05/21/24 06/03/24 History pramipexole 1.5 mg tablet 1.5 mg PO DAILY 05/21/24 06/03/24 History Allergies Allergy/AdvReac Type Severity Reaction Status Date / Time adhesive tape Allergy Mild SKIN Verified 06/03/24 12:46 IRRITATION Vital Signs Vital Signs - 24 hr 06/03/24 12:49 Temperature 96.9 F L Pulse Rate 91 Respiratory Rate 18 Blood Pressure 146/96 H Pulse Oximetry 100 Oxygen Delivery Room Air Exam Const: General: comfortable and no acute distress HENMT: Face/Nose/Sinus: Normal nares present Eyes: General: appearance normal, both eyes and all related structures Neck: Neck: no JVD Resp: Auscultation: clear to auscultation bilaterally Cardio: Rate: regular rate Rhythm: regular rhythm GI: Inspection: non-distended GI Palp: Yes Soft to palpation Skin: General skin exam: normal color Neuro: General: gait normal Speech: normal speech
[2024-06-03 14:10] VITALS: BP 108/76; PULSE 85; RESP 18; O2SAT 100
[2024-06-03 14:20] VITALS: BP 117/83; PULSE 85; RESP 18; O2SAT 97
[2024-06-03 14:39] VITALS: BP 124/92; PULSE 84; RESP 18; O2SAT 97
== END 2024-06-03 14:46 | disposition home or self-care (01) ==
PROVIDERS: PCP Family Medicine; Referring Provider Physician Assistant; Visit Provider Internal Medicine Gastroenterology
PROC: 0DJD8ZZ Inspection of Lower Intestinal Tract, Via Natural or Artificial Opening Endoscopic (ICD-10-PCS; CPT 45378; principal; 2024-06-03 14:30)
DX: Z12.11 Encounter for screening for malignant neoplasm of colon (principal); D12.4 Benign neoplasm of descending colon; K64.8 Other hemorrhoids; K57.30 Diverticulosis of large intestine without perforation or abscess without bleeding; F32.A Depression, unspecified; K21.9 Gastro-esophageal reflux disease without esophagitis; I10 Essential (primary) hypertension; K58.9 Irritable bowel syndrome, unspecified; F17.210 Nicotine dependence, cigarettes, uncomplicated; G43.909 Migraine, unspecified, not intractable, without status migrainosus; E66.01 Morbid (severe) obesity due to excess calories; Z68.41 Body mass index [BMI] 40.0-44.9, adult; Z98.890 Other specified postprocedural states; Z80.1 Family history of malignant neoplasm of trachea, bronchus and lung; Z80.8 Family history of malignant neoplasm of other organs or systems; Z82.49 Family history of ischemic heart disease and other diseases of the circulatory system
CPT/HCPCS: 45385; 88305; J2003; J2704; J7120

== ENCOUNTER 2024-08-24 12:41 | Outpatient (CLI) | payer MEDICARE, SELFPAY ==
--- NOTE | ~2024-08-24 | MM_ITS ---
EXAMINATION: MM screening susie BI w naomie HISTORY: Screening mammogram TECHNIQUE: Craniocaudal and mediolateral oblique 3-D tomosynthesis images were obtained and synthetic 2-D images were generated. CAD analysis was submitted and interpreted. COMPARISON: 06/25/2023, 01/12/2022 BREAST PARENCHYMAL COMPOSITION:Not Dense. The breasts are almost entirely fatty FINDINGS: No suspicious mass, calcification, or architectural distortion are identified in either carrington ast to suggest malignancy. There has been no suspicious interval change. IMPRESSION: No mammographic evidence of malignancy. Recommend routine screening mammography in one year. BI-RADS Category 1: Negative Reviewed, dictated and finalized at location . ENT AMBASSADOR
== END 2024-08-24 12:42 | disposition home or self-care (01) ==
LOC: MICIMG 12:42
PROVIDERS: PCP Family Medicine; Visit Provider Family Medicine
DX: Z12.31 Encounter for screening mammogram for malignant neoplasm of breast (principal)
CPT/HCPCS: 77063; 77067

== ENCOUNTER 2024-11-18 00:19 | Day surgery (SDC) | payer MEDICARE, SELFPAY ==
[2024-11-10 10:22] VITALS: BMI 38.1
--- NOTE | 2024-11-10 10:30 | PC.NURSE ---
Report to the Outpatient Waiting Room, entrance under the green pavilion located off [facility], at time _0900_ on date _[id number]_. Planned Procedure Time: _1100_.? Time changes happen often and if your time is changed the preop area will call you the afternoon before. - You and your visitor will be asked to self-screen and do not enter if you have any COVID symptoms. Please call surgeon if you need to reschedule. - A mask is optional within the hospital at this time. May have clear liquids (water, carbonated beverages, clear teas, apple juice) until 3am with a maximum of 20 ounces. Nothing to drink after 3am. - No food from midnight until time of surgery and no smoking, or chewing tobacco (or any form of nicotine). No chewing gum, candy or mints. Take only the following medications with a SIP of water on the morning of surgery: ___Duloxetine and if needed may use Lorazepam____ DO NOT STOP ANY OF YOUR OTHER PRESCRIPTION MEDICATIONS PRIOR TO SURGERY EXCEPT THE FOLLOWING Hold all vitamins and supplements for 3 days per anesthesiologist. Medications to discontinue per physician Date to take last dose Please no make-up, nail albanian, hairspray, perfume, deodorant, or body powder the day of surgery.? No jewelry (including any body piercings) or valuables the day of surgery, leave them at home.? Please take a shower or bath the night before, or the morning of, surgery with an antibacterial soap.? Wear comfortable, loose fitting clothing.? - Jewelry must be removed prior to entering the operating room.? Rings and piercings that are not removed may be cut off. - The hospital will not accept responsibility for valuables.? - Please leave all valuables, including medications, at home the day of surgery. If you are going home after surgery, a licensed bus van driver must drive you home.? - NO public transportation without another adult if you receive anesthesia. - We recommend that an adult stay with you for 24 hours following discharge. - We also recommend that you do not drive, make important decision, drink alcoholic beverages, or take any drugs that were not prescribed by your health care provider for at least 24 hours after your discharge time. Follow any additional instructions given to you from your surgeon. Telephone instructions given to __Melody___and asked if any additional questions and then verbalized understanding. Patient advised to call surgeon office or pre surgery nurse liaison [phone] if any additional questions.
--- OUTSIDE RECORDS SUMMARY | 2024-11-18 00:22 | XMS_ITS | Clinical Summary ---
Author Organization [facility] Address [address] [place] [address] Care Team Providers Care Merchandise Displayer Name Role Phone Angelic Centeno Primary Care Provider [phone] Allergies Active Allergy Reactions Criticality Noted Date Comments Adhesive Tape-Silicones Rash Medium 02/28/2017 Medications pramipexole (MIRAPEX) 1.5 mg tablet Take 1.5 mg by mouth daily Active SUMAtriptan (IMITREX) 6 mg/0.5 mL injection sumatriptan 6 mg/0.5 mL subcutaneous pen injector Active triamterene-hyd roCHLOROthiazid e (triamterene-hy droCHLOROthiazi de) 37.5-25 mg per tablet/capsule Take 1 tablet/capsule by mouth daily Active Active Problems Problem Noted Date Diagnosed Date Primary osteoarthritis of both knees 10/19/2021 Surgical History Surgery Date Site/Laterality Comments HYSTERECTOMY KNEE SURGERY Medical History Medical History Date Comments Depression Osteoarthritis Migraines Family History Medical History Relation Name Comments Arthritis Other COPD Other Hypertension Other Relation Name Status Comments Other Social History Tobacco Use Types Packs/Day Years Used Date Smoking Tobacco: Every Day Smokeless Tobacco: Never Personal Safety Answer Date Recorded Getting School Help Needed Not on file 10/05 Comments Unknown Sex and Gender Information Value Date Recorded Sex Assigned at Not on file Legal Sex Female 10:20 AM MANUFACTURING ENGINEERING MANAGER Gender Identity Not on file Sexual Orientation Not on file Obstetrics History Last Filed Vital Signs Vital Sign Reading Time Taken Comments Blood Pressure 125/90 10/19/2021 10:15 AM MANUFACTURING ENGINEERING MANAGER Pulse 96 10/19/2021 10:15 AM MANUFACTURING ENGINEERING MANAGER Temperature - - Respiratory Rate - - Oxygen Saturation - - Inhaled Oxygen Concentration - - Weight 105.7 kg (233 lb) 10/19/2021 10:15 AM MANUFACTURING ENGINEERING MANAGER Height 157.5 cm (5' 2 ) 10/19/2021 10:15 AM MANUFACTURING ENGINEERING MANAGER Body Mass Index 42.62 10/19/2021 10:15 AM MANUFACTURING ENGINEERING MANAGER Plan of Treatment Health Maintenance Due Date Last Done Comments Breast Cancer Screening-Mammogram 1965 Colon Cancer Screening-Colonoscopy 1965 Depression Screening 1965 Hepatitis C Screening 1965 DTaP/Tdap/Td Vaccine (1 - Tdap) 1976 Regular Well Visit/Exam 18-64 1983 Pneumococcal vaccine <65 (1 of 2 - PCV) 1984 Zoster Vaccine (1 of 2) 2015 Covid-19 Vaccine (2 - 2023-2 5 season) 2024 11/18/2020 Influenza Vaccine (Season Ended) 2025 06/01/2020, 05/01/2018, 04/10/2017, Additional history exists Hepatitis B Screening Completed 04/05/2016, 016 Insurance AET MEDICARE Care Teams Merchandise Displayer Relationship Specialty Start Date End Date Angelic Centeno PA [address] [place] [address] (work) PCP - General 02/18/17
--- OUTSIDE RECORDS SUMMARY | 2024-11-18 00:22 | XMS_ITS | Clinical Summary ---
Author Organization [facility] Address [address] [place] [phone] Phone Care Team Providers Care Forest Examiner Name Role Phone Tyler Ovalle MD Primary Care Provider Allergies Active Allergy Reactions Criticality Noted Date Comments Adhesive Tape-Silicones Rash Low 02/28/2017 Medications docusate sodium (COLACE) 50 mg capsule Take 50 mg by mouth daily at bedtime. Active CAFFEINE (STAY AWAKE ORAL) Take 1 Tablet by mouth daily. Active pramipexole (MIRAPEX) 1.5 mg Tablet Take 1.5 mg by mouth daily at bedtime. Active Social History Tobacco Use Types Packs/Day Years Used Date Smoking Tobacco: Former Cigarettes Q uit: 01/29/2017 Smokeless Tobacco: Never Alcohol Use Standard Drinks/Week Comments Yes 0 (1 standard drink = 0.6 oz pur e alcohol) occassionally Comments No Sex and Gender Information Value Date Recorded Sex Assigned at Not on file Legal Sex Female 10:36 AM CDT Gender Identity Not on file Sexual Orientation Not on file Last Filed Vital Signs Vital Sign Reading Time Taken Comments Blood Pressure 110/72 03/25/2017 3:00 PM CDT Pulse 88 03/25/2017 3:00 PM CDT Temperature 36.7 C (98 F) 03/25/2017 3:00 PM CDT Respiratory Rate 20 03/25/2017 3:00 PM CDT Oxygen Saturation 96% 03/25/2017 3:00 PM CDT Inhaled Oxygen Concentration - - Weight 111.2 kg (245 lb 3.2 oz) 03/25/2017 6:03 AM CDT Height 160 cm (5' 3 ) 03/25/2017 6:03 AM CDT Body Mass Index 43.44 03/25/2017 6:03 AM CDT Plan of Treatment Health Maintenance Due Date Last Done Comments DTAP/TDAP/TD VACCINES (1 - Tdap) 1984 HEPATITIS B VACCINES (1 of 3 - 19+ 3-dose series) 07/14 HPV/Cotest (21-29) 1986 PAP SMEAR 1986 CERVICAL CANCER SCREENING 1995 HPV/Cotest (30-65) 1995 PAP SMEAR 1995 BREAST CANCER SCREENING 2005 COLORECTAL SCREENING 2010 Colorectal Cancer Screening 2010 FIT-DNA Q 3 years 2010 FIT/FOBT Q 1 year 2010 Flex Sig/CT Colonography Q 5 years 2010 ZOSTER VACCINE (1 of 2) 2015 INFLUENZA VACCINE (#1) 2024 Medical Devices Implanted Type Area Curriculum Assistant Device Identifier Shelf Expiration Date Model / Serial / Lot Sheeting Silic [id number] - [id number] Implanted:Qty : 1 on 03/25/2017 by Tien Tolbert MD at [facility] Adhesion Barrier N/A: Nose [employer] 12/09/2020 [id number] / / Hemostatic Surgicel 2x3in 1952 Csc - [id number] Implanted:Qty : 1 on 03/25/2017 by Tien Tolbert MD at [facility] Hemostatic N/A: Nose [employer]- [employer] [id number] 05/11/20201952 / / [id number] Sealant Floseal 5ml [id number] - [id number] Implanted:Qty : 1 on 03/25/2017 by Tien Tolbert MD at [facility] Sealant N/A: Nose EARLY- [employer]CIENCE [id number] 05/11/2018 [id number] / / [id number] Insurance [facility] Address: [facility] [id number] [place] [address] Advance Directives For more information, please contact: [phone] * Full Code (Latest Code Status on File) Date Activated Date Inactivated Comments 03/25/2017 11:51 AM 03/25/2017 5:30 PM * Full Code Date Activated Date Inactivated Comments 03/25/2017 6:32 AM 03/25/2017 11:51 AM Care Teams Forest Examiner Relationship Specialty Start Date End Date Tyler Ovalle MD [address] [place] [phone] PCP - General Family Practice 02/28/17
--- OUTSIDE RECORDS SUMMARY | 2024-11-18 00:22 | XMS_ITS ---
Author Organization [facility] Address [address] [facility] [address] [place], [place] [phone] Care Team Providers Care Heel Cementer Machine Name Role Phone John Jimenes Primary Care Provider [phone] Migration, Provider Unavailable Unavailable Allergies Allergen (clinical drug ingredient) Drug/Non Drug Allergy documented on EMR Reaction Allergy Type Onset Date Status ADHESIVE TAPE (uncoded) Unknown Allergy Active REASON FOR VISIT Multum To Medispan Conversion Encounter Medications Medication SIG (Take, Route, Frequency, Duration) Notes Start Date End Date Status Triamterene 100 MG 1 cap(s) orally 2 times a day for 30 day(s) Unknown SUMAtriptan QD *Please review a nd pick correct strength-formulati on from Medispan options. If intended option is not shown, discontinue and re-order from Quick Search* Unknown Pramipexole Dihydrochloride 1.5 MG 1 tab(s) orally 3 times a day for 30 day(s) Unknown Encounters Encounter Location Date Provider Diagnosis [facility] [address] [facility] [address] [place], [place] [phone] 07/25/2024 Provider Migration Plan Of Treatment No Information Progress Notes * Noa CONDONDOB:1965 (59 yo F)Acc No.[id number]:07/25/2024 Patient: Noa CHRISTINA Provider: Lance cleaning Migration :1965 A ge:58 Y S ex:Female Date:07/25/2024 Address:[address] [place], [place] [phone] Pcp:John Jimenes Subjective: * Chief Complaints: * [...] Physical Examination: Assessment: Plan: * Treatment: * * Electronic signature of uYn gabriel Migration on 11/18/2024 at 12:22 AM CDT Sign off status: Pending * Provider: Lance cleaning Migration Date: 1 09/25/2023 Generated for Goldie wu/Nayeli/Jesicaitting on: 0 11/18/2024 12:22 AM CDT
--- OUTSIDE RECORDS SUMMARY | 2024-11-18 00:22 | XMS_ITS | Patient Health Record ---
Author Organization [facility] Address [address] [place] [place], [place] [address] Care Team Providers Care Continuous Pickling Line Pickler Name Role Phone John Jimenes Primary Care Provider [phone] Migration, Provider Unavailable Unavailable Allergies Allergen (clinical drug ingredient) Drug/Non Drug Allergy documented on EMR Reaction Allergy Type Onset Date Status ADHESIVE TAPE (uncoded) Unknown Allergy Active Reason For Referral No Information Medications Medication SIG (Take, Route, Frequency, Duration) [...] times a day for 30 day(s) Unknown Immunizations Vaccine Route Administration Date Status Comme nts Influenza Unknown 11/29/2016 Administered Problems Problem Type SNOMED Code ICD Code Onset Dates Problem Status W/U Status Risk Notes Problem Sleep apnea (48021760) Sleep apnea, unspecified (G47.30) Active confirmed Problem Disorder of nasal sinus (disorder) (8495541) Other specified disorders of nose and nasal sinuses (J34.89) Active confirmed Problem Sensory disorder of smell and/or taste (4123436004044) Unspecified disturbances of smell and taste (R43.9) Active confirmed Problem Allergic rhinitis (51893697) Allergic rhinitis, unspecified (J30.9) Active confirmed Problem Eustachian tube disorder (65214268) Unspecified Eustachian tube disorder, left ear (H69.92) Active confirmed Problem Sensorineural hearing loss of bilateral ears (disorder) (455650341) Sensorineural hearing loss, bilateral (H90.3) Active confirmed Problem Atypical facial pain (17377173) Atypical facial pain (G50.1) Active confirmed Problem Chronic otitis externa of right external auditory canal (disorder) (9735025405306922 ) Unspecified chronic otitis externa, right ear (H60.61) Active confirmed Problem Chronic otitis externa of left external auditory canal (disorder) (8786247635345626 ) Unspecified chronic otitis externa, left ear (H60.62) Active confirmed Problem Chronic sinusitis (63255330) Chronic sinusitis, unspecified (J32.9) Active confirmed Problem Deviated nasal septum (536552685) Deviated nasal septum (J34.2) Active confirmed Problem Hypertrophy of nasal turbinates (40128842) Hypertrophy of nasal turbinates (J34.3) Active confirmed Problem Cellulitis of face (989313609) Cellulitis of face (L03.211) Active confirmed Problem Headache (65519841) Headache (R51) Active confirmed Encounters Encounter Location Date Provider Diagnosis [facility] [address] [facility] [phone] 07/25/2024 Provider Migration Plan Of Treatment No Information Insurance Providers Payer Name Payer Address Payer Phone Subscriber Number Group Number Insured Name Patient Relationship to Insured Coverage Start Date Coverage End Date [employer] Medicare Gold Advantage [facility] [address] [place] [address] [id number] Noa Condon Self - patient is the insured Medical (General) History Medical History History ICD Code wendie --cpap migraine headaches ,rls Pertinent Medical History: Ear problems, Migraine headaches, Surgical History Surgery Date(Month/Year) knee surgery x3 appendectomy hysterectomy toe surgery nasal sx --dr montejo 2016 semo septo/nasl valve sx 2016
--- OUTSIDE RECORDS SUMMARY | 2024-11-18 00:22 | XMS_ITS | Referral Summary ---
Author Organization [facility] Address [address] [place] [address] Care Team Providers Care Abalone Diver Name Role Phone Angelic Centeno Primary Care Provider [phone] Allergies Active Allergy Reactions Criticality Noted Date [...] Date Primary osteoarthritis of both knees 10/19/2021 Social History Tobacco Use Types Packs/Day Years Used Date Smoking Tobacco: Every Day Smokeless Tobacco: Never Personal Safety Answer Date Recorded Getting School Help Needed Not on file 10/05 Comments Unknown Sex and Gender Information Value Date Recorded Sex Assigned at Not on file Legal Sex Female 10:20 AM WRITER Gender Identity Not on file Sexual Orientation Not on file Last Filed Vital Signs Vital Sign Reading Time Taken Comments Blood Pressure 125/90 10/19/2021 10:15 AM WRITER Pulse 96 10/19/2021 10:15 AM WRITER Temperature - - Respiratory Rate - - Oxygen Saturation - - Inhaled Oxygen Concentration - - Weight 105.7 kg (233 lb) 10/19/2021 10:15 AM WRITER Height 157.5 cm (5' 2 ) 10/19/2021 10:15 AM WRITER Body Mass Index 42.62 10/19/2021 10:15 AM WRITER Plan of Treatment Not on file Insurance [employer] MEDICARE Care Teams Abalone Diver Relationship Specialty Start Date End Date Angelic Centeno PA [address] [place] [address] PCP - General 02/18/17
--- OUTSIDE RECORDS SUMMARY | 2024-11-18 00:23 | XMS_ITS | Clinical Summary ---
Author Organization [facility] [employer] Address [address] [place] [address] Care Team Providers Care Kier Tender Name Role Phone Unavailable Primary Care Provider Unavailabl e Source Comments [facility] [employer],non-owned Affiliates and Associated Physician Practices is amultiple site organization consisting of ambulatory clinics and hospital sitesin [place], [place], [place] and [place]. This disclosure is being madepursuant to the Care Everywhere program and may not contain all information available regarding this patient. Last updated 18.[facility] [employer] Social History Tobacco Use Types Packs/Day Years Used Date Smoking Tobacco: Never Assessed Sex and Gender Information Value Date Recorded Sex Assigned at Female 04/02/2023 12:41 AM CDT Gender Identity Female 04/02/2023 12:41 AM CDT Sexual Orientation Not on file Plan of Treatment Health Maintenance Due Date Last Done Comments COLOGUARD (AGES 45-75) - COL ON CA SCREENING 1965 COLON MONITORING 1965 COLONOSCOPY - COLON CA SCREENING 1965 CT COLONOGRAPHY - COLON CA SCREENING 1965 Colorectal Cancer Screening 1965 FIT - COLON CA SCREENING 1965 FLEX SIG - COLON CA SCREENING 1965 LIPID TESTING 1965 MAMMOGRAM 1965 PAP SMEAR 1965 HIV SCREENING 1980 HEPATITIS C SCREENING 08/07/1983 DTAP/TDAP/TD VACCINES (1 - Tdap) 1984 HEPATITIS B VACCINE (1 of 3 - 19+ 3-dose series) 1984 PNEUMOCOCCAL VACCINE 50+ (1 of 1 - PCV) 2015 ZOSTER VACCINE (1 of 2) 2015 COVID-19 VACCINE (1 - 2023-2 5 season) 2024 INFLUENZA VACCINE (#1) 2024 DEPRESSION SCREENING 08/12/2024 MEDICARE AWV CALENDAR YEAR 2024 HIB VACCINE Aged Out No longer eligi ble based on patient's age to complete this topic HPV VACCINE Aged Out No longer eligi ble based on patient's age to complete this topic MENINGOCOCCAL (Group B) VACC INE SHARED DECISION-MAKING Aged Out No longer eligibl e based on patient's age to complete this topic MENINGOCOCCAL GROUPS A/C/Y/W VACCINE Aged Out No longer eligible b ased on patient's age to complete this topic PNEUMOCOCCAL VACCINE Aged Out No long er eligible based on patient's age to complete this topic
--- NOTE | 2024-11-18 06:47 | WPDHPUPDATE1 ---
History and Physical Update Update Date/Time: 11/18/24 06:47 Patient seen and examined in pre-operative holding area. No interval change in medical history or symptoms. Patient recalls previous discussion of benefits and alternatives to procedure. Continues to desire to proceed with right endoscopic possible open carpal tunnel release. Reviewed procedure, post-op expectations and risks including but not limited to bleeding, infection, injury to tendon/nerve/vessel, decreased hand function, stiffness, RSD, no change or worsening of symptoms. I discussed the possible use of assistants and their participation in the case. Patient stated understanding and signed the consent form wishing to proceed.
--- NOTE | 2024-11-18 06:47 | W.PM.PROC2 ---
Procedure Note - Detailed Date of Procedure 11/18/24 Pre-op Diagnosis Rt Carpal Tunnel Syn Post-op Diagnosis Same Procedure Performed right ectr Surgeon Isha Cummings MD Filtration Operator tyshawn bruner pa-c Anesthesia MAC Description of Procedure INFORMED CONSENT: The patient was seen and examined and marked in the pre-op area.? The patient signed the consent form. PROCEDURE IN DETAIL:The patient taken back to OR on the stretcher in supine position. Time out performed with anesthesia, surgeon and staff agreeing on patient's name site and surgery to be performed SCDs were placed on the lower extremities and inflated. A tourniquet was placed on {right} upper extremity and antibiotics given IV After anesthesia administered sedation I injected {5}cc 1%lido with epi and 0.5% marcaine plain at the operative site The?{right upper extremity}?was prepped and draped in sterile fashion the??{right upper extremity} was? exsanguinated with Esmarch bandage and tourniquet inflated to 250mmHg I made a transverse incision in the {right} volar distal wrist crease through skin and dermis with 15 blade scalpel.? Littler scissors spread down to antebrachial fascia. A small incision was made in antebrachial fascia allowing access to Carpal tunnel. I proceeded with sequential dilation staying in line with the ring finger and hugging the hook of the hamate.? I then used the synovial elevator to free any adhesions from the underside of the transverse carpal ligament. Next I was able to insert the Microaire endoscopic carpal tunnel device with direct visualization of the transverse fibers on the monitor and proceeded with complete segmental retrograde release of the ligament in its entirety.? I irrigated with normal saline and closed with 4-0 monocryl for dermis and subcuticular closure. A dressing of Dermabond, 4x4, lise, and a volar splint was applied for patient safety, security, and comfort and secured with an daniela bandage after the tourniquet was let down noting the hand was warm and well perfused. The patient was then awaken from anesthesia and transferred to the recovery room in stable condition.? Complications - none EBL- 0cc Disposition - home in stable conditions Tyshawn Bruner PA-C was essential for positioning, retraction, closure and dressing placement [facility] Billing Surgery - Charge Forward: Surgery Billing ([id number] same for tyshawn adding modifier )
[2024-11-18 07:58] VITALS: BP 146/88; PULSE 83; RESP 16; TEMP 36.4; O2SAT 99
[2024-11-18 08:00] VITALS: BP 146/88; PULSE 83; RESP 16; TEMP 36.4; O2SAT 99
[2024-11-18 08:31] VITALS: BMI 41.3
[2024-11-18] MEDS: LACTATED RINGERS 1,000 ML 30 ML IV CONT (08:50)
--- NOTE | 2024-11-18 09:18 | P.PNAN_ITS ---
Anes - Initial Pre Proc Eval Procedure: Operation Date: 11/18/24 10:30 Proposed Procedures p Right Endoscopic Carpal Tunnel Release, Possible Open - Isha Cummings MD Date/Time: 11/18/24 09:18 Surgeon: Isha Cummings MD Pre Op Diagnosis: Rt Carpal Tunnel Syn Patient Data Age: 59 Gender: F Height: 1.6 m Weight: 106 kg Last Vital Signs Temp 36.4 C L 11/18/24 07:58 Pulse 83 11/18/24 07:58 Resp 16 11/18/24 07:58 BP 146/88 H 11/18/24 07:58 Pulse Ox 99 11/18/24 07:58 O2 Del Method Room Air 11/18/24 07:58 Allergies Allergy/AdvReac Type Severity Reaction Status Date / Time adhesive tape Allergy Mild SKIN Verified 11/18/24 08:31 IRRITATION Home Medications ?Medication ?Instructions ?Recorded ?Confirmed ?Type sumatriptan succinate 6 mg/0.5 mL 6 mg subcut ONCE PRN Migraine 10/31/21 11/10/24 History subcutaneous cartridge (refill) Headache lorazepam 0.5 mg tablet 0.5 mg PO DAILY PRN Anxiety 03/18/24 11/10/24 History Dulcolax (bisacodyl) 1 tablet BYMOUTH HS 05/21/24 11/10/24 History pramipexole 1.5 mg tablet 1.5 mg PO DAILY #90 tabs 08/24/24 11/10/24 Rx atorvastatin 20 mg tablet 20 mg PO DAILY #90 tabs 09/15/24 11/10/24 Rx duloxetine 60 mg capsule,delayed 60 mg PO DAILY #60 caps 10/15/24 11/10/24 Rx release Patient hx anesthesia problems: post op nausea/vomiting Family hx anesthesia problems: none Results Review: All pre-operative results and documents have been reviewed as part of the pre- operative evaluation. 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 Anxiety and depression GERD (gastroesophageal reflux disease) Migraine headache HTN (hypertension) Arthritis Degenerative disc disease IBS (irritable bowel syndrome) Surgical History Surgical History Hx of arthroscopy of left knee 2000 History of total abdominal hysterectomy and bilateral salpingo-oophorectomy (~09/2002) Hx of arthroscopy of right knee 1991, 1996 History of total right knee replacement (~05/01/22) History of total left knee replacement (~08/09/22) History of appendectomy Family History Family History Mother Lung cancer COPD (chronic obstructive pulmonary disease) Father Bone cancer Heart attack Arthritis Sibling Heart attack Other Heart disease Hypertension Social History Social History Smoking packs per day: 0.5 Smoking cigarettes per day: 10.0 Years smoked: 10 Smoking pack-years: 5.00 Smoking status: Current every day smoker Tobacco type: cigarettes Second hand tobacco smoke exposure: No Smoking end date: 02/09/22 Additional smoking assessment comments: STATES OCCASIONALLY CHEATING LAST CIG 02/26/22-LAST CIG 02/26/22 CONFIRMED Alcohol intake: never Drinks per week: 2 Substance use: never Substance use type: does not use Do You Feel Safe in your Home?: Yes Lack of Transportation: No Lack of Food: Never True Current Housing: I Have Housing Concerned About Future Housing: No Difficulty Paying Gas/Electric Bills: No Difficulty Paying for Meds: No Currently Unemployed: No Education: High School Diploma/GED Difficulty w/ Childcare or Family Care: No Living arrangements: with family Additional living arrangements comments: HUSB Occupation/Education: unemployed Gender identity (if verbalized by the patient): Female Sexual Orientation (if Verbalized by the Patient): Straight or Heterosexual Spiritual care concerns: No Anes - Eval Final PreProcedure Day of Procedure 11/18/24 09:18 Patient weight: morbidly obese Heart: regular rate and rhythm Lungs: decreased breath sounds Airway: Mallampati scale class III Neurological: alert and oriented Last oral intake: >/= 8 hours ASA classification: III Emergent: no Anesthetic plan: proceed Anesthesia type and monitoring: general GIVS and standard monitoring Results Review: All pre-operative results and documents have been reviewed as part of the pre- operative evaluation. Informed Consent: The patient's anesthetic plan and its attendant risks and benefits were discussed with the patient/family/POA. Questions were solicited and answers provided to the satisfaction of the patient/family/POA.
[2024-11-18] MEDS: BUPivacaine HCL 0.5% PF 30 ML VIAL INFILTRATE (10:55)
[2024-11-18] MEDS: LIDO 1%/EPINEPHRINE 1:100,000 50 ML VIAL INFILTRATE (10:55)
[2024-11-18] MEDS: ceFAZolin 2 GM/D5W 50 ML 2 GM/50 ML BAG IVPB (10:55)
[2024-11-18 11:15] VITALS: BP 126/82; PULSE 78; RESP 16; O2SAT 95
[2024-11-18 11:45] VITALS: BP 142/91; PULSE 63; RESP 16
== END 2024-11-18 11:59 | disposition home or self-care (01) ==
PROVIDERS: PCP Family Medicine; Visit Provider Plastic Surgery
PROC: 01N54ZZ Release Median Nerve, Percutaneous Endoscopic Approach (ICD-10-PCS; CPT 29848; principal; 2024-11-18 10:30)
DX: G56.01 Carpal tunnel syndrome, right upper limb (principal); F17.210 Nicotine dependence, cigarettes, uncomplicated; E66.01 Morbid (severe) obesity due to excess calories; Z68.41 Body mass index [BMI] 40.0-44.9, adult
CPT/HCPCS: 29848; J0690; J2004; J2704; J3010; J7120

== ENCOUNTER 2025-04-16 10:26 | Outpatient (CLI) | payer MEDICARE, SELFPAY ==
--- OUTSIDE RECORDS SUMMARY | 2024-07-25 16:30 | XMS_ITS ---
Author Organization [facility] Address [address] [facility] [address] [place], [place] [phone] Care Team Providers Care Electronic Components Assembler Name Role Phone John Jimenes Primary Care Provider Migration, Provider Unavailable Unavailable Allergies Allergen (clinical drug ingredient) Drug/Non Drug Allergy documented on EMR Reaction Allergy Type Onset Date Status ADHESIVE TAPE (uncoded) Unknown Allergy Active REASON FOR VISIT Multum To Medispan Conversion Encounter Medications Medication SIG (Take, Route, Frequency, Duration) Notes Start Date End Date Status Triamterene 100 MG 1 cap(s) orally 2 times a day; Duration: 30 day(s) Unknown SUMAtriptan QD *Please review a nd pick correct strength-formulati on from Medispan options. If intended option is not shown, discontinue and re-order from Quick Search* Unknown Pramipexole Dihydrochloride 1.5 MG 1 tab(s) orally 3 times a day; Duration: 30 day(s) Unknown Encounters Encounter Location Date Provider Diagnosis [facility] [address] [facility] [address] [place], [place] [phone] 07/25/2024 Provider Migration Plan Of Treatment No Information Progress Notes * Noa CONDONDOB:1965 (59 yo F)Acc No.[id number]:07/25/2024 Patient: Noa CHRISTINA Provider: Lance cleaning Migration :1965 A ge:58 Y S ex:Female Date:07/25/2024 Address:[address] [place], [place] [phone] Pcp:John Jimenes Subjective: * Chief Complaints: * 1 . Multum To Medispan Conversion Encounter. * Medical History: * Medications: U nknown SUMAtriptan QD , Notes to Pharmacist: *Please review and pick correct strength-formulation from Medispan options. If intended option is not shown, discontinue and re-order from Quick Search*, Unknown Triamterene 100 MG Capsule 1 cap(s) orally 2 times a day , Unknown Pramipexole Dihydrochloride 1.5 MG Tablet 1 tab(s) orally 3 times a day * Allergies: A DHESIVE TAPE. Objective: * Vitals: * Physical Examination: Assessment: Plan: * Treatment: * Images: * Electronic signature of Prov ider Migration on 04/16/2025 at 10:43 AM CDT Sign off status: Pending * Provider: Lance cleaning Migration Date: 1 09/25/2023 Generated for Goldie wu/Nayeli/Jesicaitting on: 0 04/16/2025 10:43 AM CDT
--- OUTSIDE RECORDS SUMMARY | 2025-04-16 10:44 | XMS_ITS | Patient Health Record ---
Author Organization [facility] Address [address] [place], [place] [id number] Care Team Providers Care Aqua Ammonia Operator Name Role Phone John Jimenes Primary Care Provider [phone] Migration, Provider Unavailable Unavailable Allergies Allergen (clinical [...] times a day; Duration: 30 day(s) Unknown Immunizations Vaccine Route Administration Date Status Comme nts Influenza Unknown 11/29/2016 Administered Problems Problem Type SNOMED Code ICD Code Onset Dates Problem Status W/U Status Risk Notes Problem Sleep apnea (64977223) Sleep apnea, unspecified (G47.30) Active confirmed Problem Disorder of nasal sinus (disorder) (7836304) Other specified disorders of nose and nasal sinuses (J34.89) Active confirmed Problem Sensory disorder of smell and/or taste (6376739527666) Unspecified disturbances of smell and taste (R43.9) Active confirmed Problem Allergic rhinitis (84647132) Allergic rhinitis, unspecified (J30.9) Active confirmed Problem Eustachian tube disorder (89725763) Unspecified Eustachian tube disorder, left ear (H69.92) Active confirmed Problem Sensorineural hearing loss of bilateral ears (disorder) (072558444) Sensorineural hearing loss, bilateral (H90.3) Active confirmed Problem Atypical facial pain (37779667) Atypical facial pain (G50.1) Active confirmed Problem Chronic otitis externa of right external auditory canal (disorder) (9600171379820310 ) Unspecified chronic otitis externa, right ear (H60.61) Active confirmed Problem Chronic otitis externa of left external auditory canal (disorder) (1647735656805660 ) Unspecified chronic otitis externa, left ear (H60.62) Active confirmed Problem Chronic sinusitis (11908762) Chronic sinusitis, unspecified (J32.9) Active confirmed Problem Deviated nasal septum (965507875) Deviated nasal septum (J34.2) Active confirmed Problem Hypertrophy of nasal turbinates (47879597) Hypertrophy of nasal turbinates (J34.3) Active confirmed Problem Cellulitis of face (493153404) Cellulitis of face (L03.211) Active confirmed Problem Headache (18338567) Headache (R51) Active confirmed Encounters Encounter Location Date Provider Diagnosis [facility] [address] [facility], [place] [id number] 07/25/2024 Provider Migration Plan Of Treatment No Information Insurance Providers Payer Name Payer Address Payer Phone Subscriber Number Group Number Insured Name Patient Relationship to Insured Coverage Start Date Coverage End Date [employer] Medicare Gold Advantage [facility] [address] [place] [phone] [id number] Noa Condon Self - patient is the insured Medical (General) History Medical History History ICD Code wendie --cpap migraine headaches ,rls Pertinent Medical History: Ear problems, Migraine headaches, Surgical History Surgery Date(Month/Year) knee surgery x3 appendectomy hysterectomy toe surgery nasal sx --dr montejo 2016 semo septo/nasl valve sx 2016
--- OUTSIDE RECORDS SUMMARY | 2025-04-16 10:44 | XMS_ITS | Clinical Summary ---
Author Organization [facility] Address [address] [place] [id number] Phone Care Team Providers Care Rn Gastroenterology Name Role Phone Tyler Ovalle MD Primary [...] 6:03 AM CDT Height 160 cm (5' 3) 03/25/2017 6:03 AM CDT Body Mass Index 43.44 03/25/2017 6:03 AM CDT Plan of Treatment Health Maintenance Due Date Last Done Comments DTAP/TDAP/TD VACCINES (1 - Tdap) 1984 HEPATITIS B VACCINES (1 of 3 - 19+ 3-dose series) 07/14 HPV/Cotest (21-29) 1986 CERVICAL CANCER SCREENING 1995 HPV/Cotest (30-65) 1995 PAP SMEAR 1995 BREAST CANCER SCREENING 2005 COLORECTAL SCREENING 2010 Colorectal Cancer Screening 2010 FIT-DNA Q 3 years 2010 FIT/FOBT Q 1 year 2010 Flex Sig/CT Colonography Q 5 years 2010 ZOSTER VACCINE (1 of 2) 2015 INFLUENZA VACCINE (#1) 2025 Medical Devices Implanted Type Area Mailer Apprentice Device Identifier Shelf Expiration Date Model / Serial / Lot Sheeting Silic [id number] - [id number] Implanted:Qty : 1 on 03/25/2017 by Tien Tolbert MD at [facility] Adhesion Barrier N/A: Nose [employer] 12/09/2020 [id number] / / Hemostatic Surgicel 2x3in 1952 [facility] - [id number] Implanted:Qty : 1 on 03/25/2017 by Tien Tolbert MD at [facility] Hemostatic N/A: Nose [employer] [id number] 05/11/20201952 / / [id number] Sealant Floseal 5ml [id number] - [id number] Implanted:Qty : 1 on 03/25/2017 by Tien Tolbert MD at [facility] Sealant N/A: Nose EARLY- BI[employer] [id number] 05/11/2018 [id number] / / [id number] Insurance [facility] OPTIONS PPO [id number] Advance Directives For more information, please contact: [phone] * Full Code (Latest Code Status on File) Date Activated Date Inactivated Comments 03/25/2017 11:51 AM 03/25/2017 5:30 PM * Full Code Date Activated Date Inactivated Comments 03/25/2017 6:32 AM 03/25/2017 11:51 AM Care Teams Rn Gastroenterology Relationship Specialty Start Date End Date Tyler Ovalle MD [address] [place] [id number] PCP - General Family Practice 02/28/17
--- OUTSIDE RECORDS SUMMARY | 2025-04-16 10:44 | XMS_ITS | Clinical Summary ---
Author Organization [facility] Address [address] [place] [address] Care Team Providers Care Company Controller Name Role Phone Angelic Centeno Primary Care Provider [phone] Allergies Active Allergy Reactions Criticality Noted Date [...] on file Legal Sex Female 10:20 AM DIRECTOR PATIENT FINANCIAL SERVICES Gender Identity Not on file Sexual Orientation Not on file Obstetrics History Last Filed Vital Signs Vital Sign Reading Time Taken Comments Blood Pressure 125/90 10/19/2021 10:15 AM DIRECTOR PATIENT FINANCIAL SERVICES Pulse 96 10/19/2021 10:15 AM DIRECTOR PATIENT FINANCIAL SERVICES Temperature - - Respiratory Rate - - Oxygen Saturation - - Inhaled Oxygen Concentration - - Weight 105.7 kg (233 lb) 10/19/2021 10:15 AM DIRECTOR PATIENT FINANCIAL SERVICES Height 157.5 cm (5' 2) 10/19/2021 10:15 AM DIRECTOR PATIENT FINANCIAL SERVICES Body Mass Index 42.62 10/19/2021 10:15 AM DIRECTOR PATIENT FINANCIAL SERVICES Plan of Treatment Health Maintenance Due Date Last Done Comments Breast Cancer Screening-Mammogram 1965 Colon Cancer Screening-Colonoscopy 1965 Depression Screening 1965 Hepatitis C Screening 1965 DTaP/Tdap/Td Vaccine (1 - Tdap) 1976 Regular Well Visit/Exam 18-64 1983 Pneumococcal vaccine <65 (1 of 2 - PCV) 1984 Zoster Vaccine (1 of 2) 2015 Covid-19 Vaccine (2 - 2023-2 5 season) 2024 11/18/2020 Influenza Vaccine (#1) 2025 , 05/01/2018, 04/10/2017, Additional history exists Hepatitis B Screening Completed 04/05/2016, 016 Insurance [facility] MEDICARE [employer] MEDICARE GOLD Care Teams Company Controller Relationship Specialty Start Date End Date Angelic Centeno PA [address] [place] [phone] PCP - General 02/18/17
--- OUTSIDE RECORDS SUMMARY | 2025-04-16 10:44 | XMS_ITS | Clinical Summary ---
Author Organization [facility] [employer] Address [address] [place] [address] Care Team Providers Care Aircraft Instrument Mechanic Name Role Phone Unavailable Primary Care Provider Unavailabl e Source Comments [facility] [employer]non-owned Affiliates and Associated Physician Practices is amultiple site organization consisting of ambulatory clinics and hospital sitesin [place], [place], [place] and [place]. This disclosure is being madepursuant to the Care Everywhere program and may not contain all information available regarding this patient. Last updated 18.[facility] [employer] Social History Tobacco Use Types Packs/Day Years Used Date Smoking Tobacco: Never Assessed Comments Unknown Sex and Gender Information Value Date Recorded Sex Assigned at Female 04/02/2023 12:41 AM CDT Legal Sex Female 12:05 PM CDT Gender Identity Female 04/02/2023 12:41 AM [...] SCREENING 1965 LIPID TESTING 1965 MAMMOGRAM 1965 HIV SCREENING 1980 HEPATITIS C SCREENING 08/07/1983 DTAP/TDAP/TD VACCINES (1 - Tdap) 1984 HEPATITIS B VACCINE (1 of 3 - 19+ 3-dose series) 1984 PAP SMEAR 1986 PNEUMOCOCCAL VACCINE 50+ (1 of 1 - PCV) 2015 ZOSTER VACCINE (1 of 2) 2015 COVID-19 VACCINE (2023-2 5 season) 2024 DEPRESSION SCREENING 08/12/2024 MEDICARE AWV CALENDAR YEAR 2024 INFLUENZA VACCINE (#1) 2025 HIB VACCINE Aged Out No longer eligi [...] on patient's age to complete this topic Insurance [employer] MEDICARE ADV SELF PAY NO INSURANCE Member Subscriber Plan / Payer (Ef fective for All Dates) Name:Yamilka Almonte Member ID:Not on file Relation to Subscriber:Not on file Name:YAMILKA ALMONTE Subscriber ID:Not on file (Home) Address: [address] [place] [id number] Payer ID:Not on file Group ID:Not on file Type:Self Pay Address: [place], [place]
[2025-04-16 11:01] LABS: Anion Gap 5 mmol/L (4-12); Blood Urea Nitrogen 15 mg/dL (7-17); Calcium 8.7 mg/dL (8.4-10.2); Carbon Dioxide 30 mmol/L (22-30); Chloride 100 mmol/L (98-107); Estimated Glomerular Filt Rate > 60; Glucose 98 mg/dL (65-110); Potassium 3.9 mmol/L (3.4-5.0); Sodium 135 mmol/L (137-145)
== END 2025-04-16 10:27 | disposition home or self-care (01) ==
LOC: ANHSURGERY 10:30
PROVIDERS: Anesthesiology; PCP Family Medicine; Visit Provider Plastic Surgery
DX: Z01.818 Encounter for other preprocedural examination (principal); Z79.899 Other long term (current) drug therapy
CPT/HCPCS: 36415; 80048

== ENCOUNTER 2025-04-21 00:31 | Day surgery (SDC) | payer MEDICARE, SELFPAY ==
--- OUTSIDE RECORDS SUMMARY | 2024-07-25 16:30 | XMS_ITS ---
Author Organization [facility] Address [address] [facility] [address] [place], [place] [phone] Care Team Providers Care Manager Image Name Role Phone John Jimenes Primary Care [...] Date Provider Diagnosis [facility] [address] [facility] [address] [place], [place] [phone] 07/25/2024 Provider Migration Plan Of Treatment No Information Progress Notes * Noa CONDONDOB:1965 (59 yo F)Acc No.[id number]:07/25/2024 Patient: Noa CHRISTINA Provider: Lance cleaning Migration :1965 A ge:58 Y S ex:Female Date:07/25/2024 Address:[address] [place], [place] [phone] Pcp:John Jimenes Subjective: * Chief Complaints: * [...] Electronic signature of Prov ider Migration on 04/21/2025 at 12:34 AM CDT Sign off status: Pending * Provider: Lance cleaning Migration Date: 1 09/25/2023 Generated for Goldie wu/Nayeli/Miryam on: 0 04/21/2025 12:34 AM CDT
--- NOTE | 2025-04-14 10:21 | PC.NURSE ---
Report to the Outpatient Waiting Room, entrance under the green pavilion located off [facility], at time _1015_ on date _02-27-7714_. Planned Procedure Time: _1215_.? Time changes happen often and if your time is changed the preop area will call you the afternoon before. - You and your visitor will be asked to self-screen and do not enter if you have any COVID symptoms. Please call surgeon if you need to reschedule. - A mask is optional within the hospital at this time. Patients may have clear liquids (water, carbonated beverages, clear teas, apple juice) until 3 hours prior to surgery with a maximum of 20 ounces. - No food from midnight until time of surgery and no smoking, or chewing tobacco (or any form of nicotine). No chewing gum, candy or mints. Take only the following medications with a SIP of water on the morning of surgery: __None____ DO NOT STOP ANY OF YOUR OTHER PRESCRIPTION MEDICATIONS PRIOR TO SURGERY EXCEPT THE FOLLOWING Hold all vitamins and supplements for 3 days per anesthesiologist. Medications to discontinue per physician Date to take last dose Please no make-up, nail prydeinig, hairspray, perfume, deodorant, or body powder the day of surgery.? No jewelry (including any body piercings) or valuables the day of surgery, leave them at home.? Please take a shower or bath the night before, or the morning of, surgery with an antibacterial soap.? Wear comfortable, loose fitting clothing.? - Jewelry must be removed prior to entering the operating room.? Rings and piercings that are not removed may be cut off. - The hospital will not accept responsibility for valuables.? - Please leave all valuables, including medications, at home the day of surgery. If you are going home after surgery, a licensed class c driver must drive you home.? - NO public transportation without another adult if you receive anesthesia. - We recommend that an adult stay with you for 24 hours following discharge. - We also recommend that you do not drive, make important decision, drink alcoholic beverages, or take any drugs that were not prescribed by your health care provider for at least 24 hours after your discharge time. Follow any additional instructions given to you from your surgeon. Telephone instructions given to __Noa___and asked if any additional questions and then verbalized understanding. Patient advised to call surgeon office or pre surgery nurse liaison [phone] if any additional questions.
[2025-04-14 10:27] VITALS: BMI 41.3
--- NOTE | 2025-04-14 10:33 | PC.NURSE ---
Report to the Outpatient Waiting Room, entrance under the green pavilion located off [facility], at time _1015_ on date _[id number]_. Planned Procedure Time: _1215_.? Time changes happen often and if your time is changed the preop area will call you the afternoon before. - You and your visitor will be asked to self-screen and do not enter if you have any COVID symptoms. Please call surgeon if you need to reschedule. - A mask is optional within the hospital at this time. Patients may have clear liquids (water, carbonated beverages, clear teas, apple juice) until 415am prior to surgery with a maximum of 20 ounces. Nothing to drink after 415am. - No food from midnight until time of surgery and no smoking, or chewing tobacco (or any form of nicotine). No chewing gum, candy or mints. Take only the following medications with a SIP of water on the morning of surgery: __None____ DO NOT STOP ANY OF YOUR OTHER PRESCRIPTION MEDICATIONS PRIOR TO SURGERY EXCEPT THE FOLLOWING Hold all vitamins and supplements for 3 days per anesthesiologist. Medications to discontinue per physician Date to take last dose Please no make-up, nail qatari, hairspray, perfume, deodorant, or body powder the day of surgery.? No jewelry (including any body piercings) or valuables the day of surgery, leave them at home.? Please take a shower or bath the night before, or the morning of, surgery with an antibacterial soap.? Wear comfortable, loose fitting clothing.? - Jewelry must be removed prior to entering the operating room.? Rings and piercings that are not removed may be cut off. - The hospital will not accept responsibility for valuables.? - Please leave all valuables, including medications, at home the day of surgery. If you are going home after surgery, a licensed trailer tank truck driver must drive you home.? - NO public transportation without another adult if you receive anesthesia. - We recommend that an adult stay with you for 24 hours following discharge. - We also recommend that you do not drive, make important decision, drink alcoholic beverages, or take any drugs that were not prescribed by your health care provider for at least 24 hours after your discharge time. Follow any additional instructions given to you from your surgeon. Telephone instructions given to __Noa___and asked if any additional questions and then verbalized understanding. Patient advised to call surgeon office or pre surgery nurse liaison [phone] if any additional questions.
--- OUTSIDE RECORDS SUMMARY | 2025-04-21 00:34 | XMS_ITS | Clinical Summary ---
Author Organization [facility] Address [address] [place] [phone] Phone Care Team Providers Care Outpatient Surgery Rn Name Role Phone Tyler Ovalle MD Primary [...] (#1) 2025 Medical Devices Implanted Type Area Tripe Cooker Device Identifier Shelf Expiration Date Model / Serial / Lot Sheeting Silic [id number] - [id number] Implanted:Qty : 1 on 03/25/2017 by Tien Tolbert MD at [facility] Adhesion Barrier N/A: Nose INVOTEX [employer]STRU [employer] 12/09/2020 [id number] / / Hemostatic Surgicel 2x3in 1952 [facility] - [id number] Implanted:Qty : 1 on 03/25/2017 by Tien Tolbert MD at [facility] Hemostatic N/A: Nose J[employer]J- [employer] [id number] 05/11/20201952 / / [id number] Sealant Floseal 5ml [id number] - [id number] Implanted:Qty : 1 on 03/25/2017 by Tien Tolbert MD at [facility] Sealant N/A: Nose EARLY- BIOSCIENCE [id number] 05/11/2018 [id number] / / [id number] Insurance [facility] OPTIONS PPO [id number] Advance Directives For more information, please contact: [phone] * Full Code (Latest Code Status on File) Date Activated Date Inactivated Comments 03/25/2017 11:51 AM 03/25/2017 5:30 PM * Full Code Date Activated Date Inactivated Comments 03/25/2017 6:32 AM 03/25/2017 11:51 AM Care Teams Outpatient Surgery Rn Relationship Specialty Start Date End Date Tyler Ovalle MD [address] [place] [phone] PCP - General Family Practice 02/28/17
--- OUTSIDE RECORDS SUMMARY | 2025-04-21 00:34 | XMS_ITS | Clinical Summary ---
Author Organization [facility] Address [address] [place] [address] Care Team Providers Care Senior Clinician Name Role Phone Angelic Centeno Primary Care Provider [phone] Allergies Active Allergy Reactions Criticality Noted Date [...] on file Legal Sex Female 10:20 AM HYPNOTHERAPIST Gender Identity Not on file Sexual Orientation Not on file Obstetrics History Last Filed Vital Signs Vital Sign Reading Time Taken Comments Blood Pressure 125/90 10/19/2021 10:15 AM HYPNOTHERAPIST Pulse 96 10/19/2021 10:15 AM HYPNOTHERAPIST Temperature - - Respiratory Rate - - Oxygen Saturation - - Inhaled Oxygen Concentration - - Weight 105.7 kg (233 lb) 10/19/2021 10:15 AM HYPNOTHERAPIST Height 157.5 cm (5' 2) 10/19/2021 10:15 AM HYPNOTHERAPIST Body Mass Index 42.62 10/19/2021 10:15 AM HYPNOTHERAPIST Plan of Treatment Health Maintenance Due Date [...] Hepatitis B Screening Completed 04/05/2016, 016 Insurance [facility] MEDICARE AETNA MEDICARE GOLD Care Teams Senior Clinician Relationship Specialty Start Date End Date Angelic Centeno PA [address] [place] [phone] PCP - General 02/18/17
--- OUTSIDE RECORDS SUMMARY | 2025-04-21 00:34 | XMS_ITS | Clinical Summary ---
Author Organization [facility] Address [address] [place] [address] Care Team Providers Care Qc Manager Name Role Phone Unavailable Primary Care Provider Unavailabl e Source Comments [facility],non-owned Affiliates and Associated Physician Practices is amultiple site organization consisting of ambulatory clinics and hospital sitesin [place], [place], [place] and [place]. This disclosure is being madepursuant to the Care Everywhere program and may not contain all information available regarding this patient. Last updated 18.[facility] Social History Tobacco Use Types Packs/Day Years [...] ALMONTE Subscriber ID:Not on file (Home) Address: [address] [place] [id number] Payer ID:Not on file Group ID:Not on file Type:Self Pay Address: [place], [place]
--- OUTSIDE RECORDS SUMMARY | 2025-04-21 00:35 | XMS_ITS | Patient Health Record ---
Author Organization [facility] Address [address] [facility] [address] [place], [place] [id number] Care Team Providers Care Newborn Photographer Name Role Phone John Jimenes Primary Care Provider [phone] Migration, Provider Unavailable Unavailable Allergies Allergen (clinical [...] W/U Status Risk Notes Problem Sleep apnea (03918394) Sleep apnea, unspecified (G47.30) Active confirmed Problem Disorder of nasal sinus (disorder) (9770189) Other specified disorders of nose and nasal sinuses (J34.89) Active confirmed Problem Sensory disorder of smell and/or taste (7740017812501) Unspecified disturbances of smell and taste (R43.9) Active confirmed Problem Allergic rhinitis (63384817) Allergic rhinitis, unspecified (J30.9) Active confirmed Problem Eustachian tube disorder (22340795) Unspecified Eustachian tube disorder, left ear (H69.92) Active confirmed Problem Sensorineural hearing loss of bilateral ears (disorder) (584098878) Sensorineural hearing loss, bilateral (H90.3) Active confirmed Problem Atypical facial pain (74970753) Atypical facial pain (G50.1) Active confirmed Problem Chronic otitis externa of right external auditory canal (disorder) (7963890810826847 ) Unspecified chronic otitis externa, right ear (H60.61) Active confirmed Problem Chronic otitis externa of left external auditory canal (disorder) (1141531520221069 ) Unspecified chronic otitis externa, left ear (H60.62) Active confirmed Problem Chronic sinusitis (31620593) Chronic sinusitis, unspecified (J32.9) Active confirmed Problem Deviated nasal septum (819482086) Deviated nasal septum (J34.2) Active confirmed Problem Hypertrophy of nasal turbinates (37699301) Hypertrophy of nasal turbinates (J34.3) Active confirmed Problem Cellulitis of face (583647781) Cellulitis of face (L03.211) Active confirmed Problem Headache (07101892) Headache (R51) Active confirmed Encounters Encounter Location Date Provider Diagnosis [facility] [address] [facility] [address] [facility], [place] [id number] 07/25/2024 Provider Migration Plan Of Treatment No Information Insurance Providers Payer Name Payer Address Payer Phone Subscriber Number Group Number Insured Name Patient Relationship to Insured Coverage Start Date Coverage End Date Aetna Medicare Gold Advantage [facility] [address] [place] [phone] [id number] Noa Condon Self - patient is the insured Medical (General) History Medical History History ICD Code wendie --cpap migraine headaches ,rls Pertinent Medical History: Ear problems, Migraine headaches, Surgical History Surgery Date(Month/Year) knee surgery x3 appendectomy hysterectomy toe surgery nasal sx --dr montejo 2016 semo septo/nasl valve sx 2016
--- NOTE | 2025-04-21 06:55 | PM.HPGS ---
History of Present Illness History of Present Illness Chief complaint: Left Carpal Tunnel Syndrome Narrative: Patient seen and examined in pre-operative holding area. No interval change in medical history or symptoms. Patient recalls previous discussion of benefits and alternatives to procedure. Continues to desire to proceed with left endoscopic possible open carpal tunnel release. Reviewed procedure, post-op expectations and risks including but not limited to bleeding, infection, injury to tendon/nerve/vessel, decreased hand function, stiffness, RSD, no change or worsening of symptoms. I discussed the possible use of assistants and their participation in the case. Patient stated understanding and signed the consent form wishing to proceed. 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 GERD (gastroesophageal reflux disease) Migraine headache Arthritis Degenerative disc disease IBS (irritable bowel syndrome) Surgical History Surgical History Hx of arthroscopy of left knee 2000 History of total abdominal hysterectomy and bilateral salpingo-oophorectomy (~09/2002) Hx of arthroscopy of right knee 1991, 1996 History of total right knee replacement (~05/01/22) History of total left knee replacement (~08/09/22) History of appendectomy Family History Family History Mother Lung cancer COPD (chronic obstructive pulmonary disease) Father Bone cancer Heart attack Arthritis Sibling Heart attack Other Heart disease Hypertension Social History Social History Smoking packs per day: 0.5 Smoking cigarettes per day: 10.0 Years smoked: 10 Smoking pack-years: 5.00 Smoking status: Current every day smoker Tobacco type: cigarettes Second hand tobacco smoke exposure: No Smoking end date: 02/09/22 Additional smoking assessment comments: STATES OCCASIONALLY CHEATING LAST CIG 02/26/22-LAST CIG 02/26/22 CONFIRMED Alcohol intake: current Drinks per week: 2 Substance use: never Substance use type: does not use Do You Feel Safe in your Home?: Yes Lack of Transportation: No Lack of Food: Never True Current Housing: I Have Housing Concerned About Future Housing: No Difficulty Paying Gas/Electric Bills: No Difficulty Paying for Meds: No Currently Unemployed: No Education: High School Diploma/GED Difficulty w/ Childcare or Family Care: No Living arrangements: with family Additional living arrangements comments: [facility] Occupation/Education: unemployed Gender identity (if verbalized by the patient): Female Sexual Orientation (if Verbalized by the Patient): Straight or Heterosexual Spiritual care concerns: No Meds Home Medications and Allergies Home Medications ?Medication ?Instructions ?Recorded ?Confirmed ?Type sumatriptan succinate 6 mg/0.5 mL 6 mg subcut ONCE PRN Migraine 10/31/21 04/20/25 History subcutaneous cartridge (refill) Headache lorazepam 0.5 mg tablet 0.5 mg PO DAILY PRN Anxiety 03/18/24 04/20/25 History Dulcolax (bisacodyl) 1 tablet BYMOUTH HS 05/21/24 04/20/25 History hydrochlorothiazide 12.5 mg tablet 12.5 mg PO DAILY #90 tabs 12/01/24 04/20/25 Rx pramipexole 1.5 mg tablet 1.5 mg PO DAILY #90 tabs 02/22/25 04/20/25 Rx atorvastatin 20 mg tablet 20 mg PO DAILY #90 tabs 04/19/25 04/20/25 Rx cyclobenzaprine 5 mg tablet 5 mg PO TID PRN muscle spasm #30 04/20/25 04/20/25 Rx tabs duloxetine 60 mg capsule,delayed 120 mg (2 x 60 mg) PO DAILY #180 04/20/25 04/20/25 Rx release caps Allergies Allergy/AdvReac Type Severity Reaction Status Date / Time adhesive tape Allergy Mild SKIN Verified 04/20/25 11:37 IRRITATION Exam Narrative: unchanged Assessment and Plan Assessment and plan (1) Bilateral carpal tunnel syndrome: Code(s): G56.03 - Carpal tunnel syndrome, bilateral upper limbs Status: Acute Assessment and Plan: cont as above
--- NOTE | 2025-04-21 06:56 | W.PM.PROC2 ---
Procedure Note - Detailed Date of Procedure 04/21/25 Pre-op Diagnosis Left Carpal Tunnel Syndrome Post-op Diagnosis Same Procedure Performed left ectr Surgeon Isha Cummings MD Anesthesia MAC Description of Procedure INFORMED CONSENT: The patient was seen and examined and marked in the pre-op area.? The patient signed the consent form. PROCEDURE IN DETAIL:The patient taken back to OR on the stretcher in supine position. Time out performed with anesthesia, surgeon and staff agreeing on patient's name site and surgery to be performed SCDs were placed on the lower extremities and inflated. A tourniquet was placed on {left} upper extremity and antibiotics given IV After anesthesia administered sedation I injected {5}cc 1%lido with epi and 0.5% marcaine plain at the operative site The?{left upper extremity}?was prepped and draped in sterile fashion the??{left upper extremity} was? exsanguinated with Esmarch bandage and tourniquet inflated to 250mmHg I made a transverse incision in the {left} volar distal wrist crease through skin and dermis with 15 blade scalpel.? Littler scissors spread down to antebrachial fascia. A small incision was made in antebrachial fascia allowing access to Carpal tunnel. I proceeded with sequential dilation staying in line with the ring finger and hugging the hook of the hamate.? I then used the synovial elevator to free any adhesions from the underside of the transverse carpal ligament. Next I was able to insert the Microaire endoscopic carpal tunnel device with direct visualization of the transverse fibers on the monitor and proceeded with complete segmental retrograde release of the ligament in its entirety.? I irrigated with normal saline and closed with 4-0 monocryl for dermis and subcuticular closure. A dressing of Dermabond, 4x4, lise, and a volar splint was applied for patient safety, security, and comfort and secured with an daniela bandage after the tourniquet was let down noting the hand was warm and well perfused. The patient was then awaken from anesthesia and transferred to the recovery room in stable condition.? Complications - none EBL- 0cc Disposition - home in stable condition AM Billing Surgery - Charge Forward: Surgery Billing ([id number])
[2025-04-21] MEDS: ACETAMINOPHEN 500 MG TABLET 1000 MG PO (10:45)
[2025-04-21] MEDS: LACTATED RINGERS 1,000 ML 30 ML IV CONT (10:45)
--- NOTE | 2025-04-21 11:08 | P.PNAN_ITS ---
Anes - Initial Pre Proc Eval Procedure: Operation Date: 04/21/25 12:15 Proposed Procedures p Endoscopic Left Carpal Tunnel Release, Possible Open - Isha Cummings MD Date/Time: 04/21/25 11:08 Surgeon: Isha Cummings MD Pre Op Diagnosis: Left Carpal Tunnel Syndrome Patient Data Age: 59 Gender: F Height: 1.6 m Weight: 106 kg Allergies Allergy/AdvReac Type Severity Reaction Status Date / Time adhesive tape Allergy Mild SKIN Verified 04/20/25 11:37 IRRITATION Home Medications ?Medication ?Instructions ?Recorded ?Confirmed ?Type sumatriptan succinate 6 mg/0.5 mL 6 mg subcut ONCE PRN Migraine 10/31/21 04/20/25 History subcutaneous cartridge (refill) Headache lorazepam 0.5 mg tablet 0.5 mg PO DAILY PRN Anxiety 03/18/24 04/20/25 History Dulcolax (bisacodyl) 1 tablet BYMOUTH HS 05/21/24 04/20/25 History hydrochlorothiazide 12.5 mg tablet 12.5 mg PO DAILY #9 0 tabs 12/01/24 04/20/25 Rx pramipexole 1.5 mg tablet 1.5 mg PO DAILY #90 tabs 04/20/25 Rx atorvastatin 20 mg tablet 20 mg PO DAILY #90 tabs 04/0504/20/25 Rx cyclobenzaprine 5 mg tablet 5 mg PO TID PRN muscle spa sm #30 04/20/25 04/20/25 Rx tabs duloxetine 60 mg capsule,delayed 120 mg (2 x 60 mg) PO DAILY #180 04/20/25 04/20/25 Rx release caps Patient hx anesthesia problems: none Family hx anesthesia problems: none Results Review: All pre-operative results and documents have been reviewed as part of the pre- operative evaluation. 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 GERD (gastroesophageal reflux disease) Migraine headache Arthritis Degenerative disc disease IBS (irritable bowel syndrome) Surgical History Surgical History Hx of arthroscopy of left knee 2000 History of total abdominal hysterectomy and bilateral salpingo-oophorectomy (~09/2002) Hx of arthroscopy of right knee 1991, 1996 History of total right knee replacement (~05/01/22) History of total left knee replacement (~08/09/22) History of appendectomy Family History Family History (Reviewed 04/20/25 @ 11:38 by Carolann Wolff [facility]) Mother Lung cancer COPD (chronic obstructive pulmonary disease) Father Bone cancer Heart attack Arthritis Sibling Heart attack Other Heart disease Hypertension Social History Social History (Reviewed 04/20/25 @ 11:38 by Carolann Wolff [facility]) Smoking packs per day: 0.5 Smoking cigarettes per day: 10.0 Years smoked: 10 Smoking pack-years: 5.00 Smoking status: Current every day smoker Tobacco type: cigarettes Second hand tobacco smoke exposure: No Smoking end date: 02/09/22 Additional smoking assessment comments: STATES OCCASIONALLY CHEATING LAST CIG 02/26/22-LAST CIG 02/26/22 CONFIRMED Alcohol intake: current Drinks per week: 2 Substance use: never Substance use type: does not use Do You Feel Safe in your Home?: Yes Lack of Transportation: No Lack of Food: Never True Current Housing: I Have Housing Concerned About Future Housing: No Difficulty Paying Gas/Electric Bills: No Difficulty Paying for Meds: No Currently Unemployed: No Education: High School Diploma/GED Difficulty w/ Childcare or Family Care: No Living arrangements: with family Additional living arrangements comments: [facility] Occupation/Education: unemployed Gender identity (if verbalized by the patient): Female Sexual Orientation (if Verbalized by the Patient): Straight or Heterosexual Spiritual care concerns: No Anes - Eval Final PreProcedure Day of Procedure 04/21/25 11:08 Patient weight: morbidly obese Heart: regular rate and rhythm Lungs: clear to auscultation Airway: Mallampati scale class III Neurological: alert and oriented Last oral intake: >/= 8 hours ASA classification: III Emergent: no Anesthetic plan: proceed Anesthesia type and monitoring: general GIVS and standard monitoring Results Review: All pre-operative results and documents have been reviewed as part of the pre- operative evaluation. Informed Consent: The patient's anesthetic plan and its attendant risks and benefits were discussed with the patient/family/POA. Questions were solicited and answers provided to the satisfaction of the patient/family/POA.
[2025-04-21 11:26] VITALS: BP 120/81; PULSE 85; TEMP 37; O2SAT 97; BMI 41.9
[2025-04-21] MEDS: ceFAZolin 2 GM in SODIUM CHLORIDE 0.9% IV 50 ML 100 ML IVPB (11:34)
[2025-04-21] MEDS: LIDO 1%/EPINEPHRINE/PF 1:200,000 30 ML VIAL 5 ML XX (11:53)
[2025-04-21 11:57] VITALS: BP 120/77; PULSE 82; RESP 14; O2SAT 95
[2025-04-21 12:30] VITALS: BP 102/63; PULSE 79; RESP 16
[2025-04-21 13:00] VITALS: BP 136/86; PULSE 73; RESP 16
== END 2025-04-21 13:08 | disposition home or self-care (01) ==
PROVIDERS: PCP Family Medicine; Visit Provider Plastic Surgery
PROC: 01N54ZZ Release Median Nerve, Percutaneous Endoscopic Approach (ICD-10-PCS; CPT 29848; principal; 2025-04-21 12:15)
DX: G56.02 Carpal tunnel syndrome, left upper limb (principal); I10 Essential (primary) hypertension; E78.2 Mixed hyperlipidemia; G25.81 Restless legs syndrome; K21.9 Gastro-esophageal reflux disease without esophagitis; F33.8 Other recurrent depressive disorders; F41.9 Anxiety disorder, unspecified; M51.369 Other intervertebral disc degeneration, lumbar region without mention of lumbar back pain or lower extremity pain; K58.9 Irritable bowel syndrome, unspecified; I87.2 Venous insufficiency (chronic) (peripheral); M19.90 Unspecified osteoarthritis, unspecified site; F17.210 Nicotine dependence, cigarettes, uncomplicated; E66.01 Morbid (severe) obesity due to excess calories; Z68.41 Body mass index [BMI] 40.0-44.9, adult; Z79.899 Other long term (current) drug therapy; Z98.890 Other specified postprocedural states; Z86.79 Personal history of other diseases of the circulatory system; Z80.1 Family history of malignant neoplasm of trachea, bronchus and lung; Z80.8 Family history of malignant neoplasm of other organs or systems; Z82.49 Family history of ischemic heart disease and other diseases of the circulatory system
CPT/HCPCS: 29848; J0690; A9270; J1100; J2003; J2004; J2250; J2405; J2704; J3010; J7120

== ENCOUNTER 2025-07-09 11:10 | Emergency (ER) | payer MEDICARE, SELFPAY ==
--- OUTSIDE RECORDS SUMMARY | 2024-07-25 15:30 | XMS_ITS ---
Author Organization [facility] Address [address] [id number] Care Team Providers Care Coverage Analyst Name Role Phone John Jimenes Primary Care [...] Date Provider Diagnosis [facility] [address] [facility] [address] [place], [place] [id number] 07/25/2024 Provider Migration Plan Of Treatment No Information Progress Notes * Noa CONDONDOB:1965 (59 yo F)Acc No.[id number]:07/25/2024 Patient: Noa Monroy Provider: Lance cleaning Migration :1965 A ge:58 Y S ex:Female Date:07/25/2024 Address:[address] [place] [address], [facility] Pcp:John Jimenes Subjective: * Chief Complaints: * [...] Electronic signature of Prov ider Migration on 07/09/2025 at 11:13 AM DIRECTOR INVESTMENT BANKING Sign off status: Pending * Provider: Lance cleaning Migration Date: 09/25/2023 Generated for Goldie wu/Nayeli/Jesicaitting on: 09/08/2024 11:13 AM DIRECTOR INVESTMENT BANKING
--- NOTE | ~2025-07-09 | XR_ITS ---
EXAMINATION: XR abdomen/kub 1V, 07/09/2025 12:20 [employer]IEF [employer] HISTORY: RLQ PAIN, BOOD IN URINE COMPARISON: No comparisons available. Technique: 3 view. Findings: Moderate fecal content, no dilated bowel loops probable nonspecific calcifications in the mesentery. No free air. No abnormal calcifications No acute osseous abnormality. Impression: 1. No acute abnormality.If there is concern for ureteral calculus CT recommended Reviewed, dictated and finalized at location P. F CREW SCHEDULER Impression: 1. No acute abnormality.If there is concern for ureteral calculus CT recommende d
--- OUTSIDE RECORDS SUMMARY | 2025-07-09 11:14 | XMS_ITS | Clinical Summary ---
Author Organization [facility] Address [address] [place] [address] Care Team Providers Care Business Banking Manager Name Role Phone Unavailable Primary Care Provider Unavailabl e Source Comments [facility],non-owned Affiliates and Associated Physician Practices is amultiple site organization consisting of ambulatory clinics and hospital sitesin [place], [place], [place] and [place]. This disclosure is being madepursuant to the Care Everywhere program and may not contain all information available regarding this patient. Last updated 18.[facility] Social History Tobacco Use Types Packs/Day Years [...] of 3 - 19+ 3-dose series) 1984 Cervical Cancer Screening 1986 PAP SMEAR 1986 PAP with HPV 1995 PNEUMOCOCCAL VACCINE 50+ (1 of 1 - PCV) 2015 ZOSTER VACCINE (1 of 2) 2015 DEPRESSION SCREENING 08/12/2024 MEDICARE AWV CALENDAR YEAR 2024 COVID-19 VACCINE (1 - 2024-2 6 season) 2025 INFLUENZA VACCINE (#1) 2025 HIB VACCINE Aged [...] ALMONTE Subscriber ID:Not on file (Home) Address: [address] [place] [phone] Payer ID:Not on file Group ID:Not on file Type:Self Pay Address: [place], [place]
--- OUTSIDE RECORDS SUMMARY | 2025-07-09 11:14 | XMS_ITS | Clinical Summary ---
Author Organization [facility] Address [address] [place] [address] Phone Care Team Providers Care Latin American Studies Director Name Role Phone Tyler Ovalle MD Primary [...] Years Used Date Smoking Tobacco: Former Cigarettes 0 Q uit: 01/29/2017 Smokeless Tobacco: Never Alcohol [...] (#1) 2025 Medical Devices Implanted Type Area Administration Vice President Device Identifier Shelf Expiration Date Model / Serial / Lot Sheeting Silic [id number] - [id number] Implanted:Qty : 1 on 03/25/2017 by Tien Tolbert MD at [facility] Adhesion Barrier N/A: Nose INVOTEX INSTRU INC 12/09/2020 [id number] / / Hemostatic Surgicel 2x3in 1952 [facility] - [id number] Implanted:Qty : 1 on 03/25/2017 by Tien Tolbert MD at [facility] Hemostatic N/A: Nose J&J- ETH[employer] [id number] 05/11/20201952 / / [id number] Sealant Floseal 5ml [id number] - [id number] Implanted:Qty : 1 on 03/25/2017 by Tien Tolbert MD at [facility] Sealant N/A: Nose EARLY- BIOSCIENCE [id number] 05/11/2018 [id number] / / [id number] Insurance [facility] OPTIONS PPO [id number] Advance Directives For more information, please contact: [phone] * Full Code (Latest Code Status on File) Date Activated Date Inactivated Comments 03/25/2017 11:51 AM 03/25/2017 5:30 PM * Full Code Date Activated Date Inactivated Comments 03/25/2017 6:32 AM 03/25/2017 11:51 AM Care Teams Latin American Studies Director Relationship Specialty Start Date End Date Tyler Ovalle MD [address] [place] [phone] PCP - General Family Practice 02/28/17
--- OUTSIDE RECORDS SUMMARY | 2025-07-09 11:14 | XMS_ITS | Patient Health Record ---
Author Organization [facility] Address [address] [facility] [address] [place], [place] [id number] Care Team Providers Care Patternmaker Name Role Phone John Jimenes Primary Care [...] Status Comme nts Influenza Unknown 11/29/2016 Administered Social History Social History Additional Details Category Social Info Options Details Social History Occupation Yes Retail Recreational drug use No Smokeless Tobacco No Passive smoke exp: Yes Problems Problem Type SNOMED Code ICD Code Onset Dates Problem Status W/U Status Risk Notes Problem Sleep apnea (23086636) Sleep apnea, unspecified (G47.30) Active confirmed Problem Disorder of nasal sinus (disorder) (5687687) Other specified disorders of nose and nasal sinuses (J34.89) Active confirmed Problem Sensory disorder of smell and/or taste (6246408543732) Unspecified disturbances of smell and taste (R43.9) Active confirmed Problem Allergic rhinitis (86818565) Allergic rhinitis, unspecified (J30.9) Active confirmed Problem Eustachian tube disorder (81822347) Unspecified Eustachian tube disorder, left ear (H69.92) Active confirmed Problem Sensorineural hearing loss of bilateral ears (disorder) (693677125) Sensorineural hearing loss, bilateral (H90.3) Active confirmed Problem Atypical facial pain (55497288) Atypical facial pain (G50.1) Active confirmed Problem Chronic otitis externa of right external auditory canal (disorder) (8344805954398443 ) Unspecified chronic otitis externa, right ear (H60.61) Active confirmed Problem Chronic otitis externa of left external auditory canal (disorder) (7713833172503224 ) Unspecified chronic otitis externa, left ear (H60.62) Active confirmed Problem Chronic sinusitis (97945563) Chronic sinusitis, unspecified (J32.9) Active confirmed Problem Deviated nasal septum (038397384) Deviated nasal septum (J34.2) Active confirmed Problem Hypertrophy of nasal turbinates (51820898) Hypertrophy of nasal turbinates (J34.3) Active confirmed Problem Cellulitis of face (699426318) Cellulitis of face (L03.211) Active confirmed Problem Headache (64740704) Headache (R51) Active confirmed Encounters Encounter Location Date Provider Diagnosis [facility] [place] [address] [place] [address] [place], [place] [id number] 07/25/2024 Provider Migration Plan Of Treatment No Information Insurance Providers Payer Name Payer Address Payer Phone Subscriber Number Group Number Insured Name Patient Relationship to Insured Coverage Start Date Coverage End Date Aetna Medicare Gold Advantage [address] [place] [phone] [id number] Noa Condon Self - patient is the insured Medical (General) History Medical History History ICD Code wendie --cpap migraine headaches ,rls Pertinent Medical History: Ear problems, Migraine headaches, Surgical History Surgery Date(Month/Year) knee surgery x3 appendectomy hysterectomy toe surgery nasal sx --dr montejo 2016 semo septo/nasl valve sx 2016
--- OUTSIDE RECORDS SUMMARY | 2025-07-09 11:14 | XMS_ITS | Clinical Summary ---
Author Organization [facility] Address [address] [place] [address] Care Team Providers Care Baker Name Role Phone Angelic Centeno Primary Care Provider [phone] Allergies Active Allergy Reactions Criticality Noted Date [...] on file Legal Sex Female 10:20 AM [employer] Gender Identity Not on file Sexual Orientation Not on file Last Filed Vital Signs Vital Sign Reading Time Taken Comments Blood Pressure 125/90 10/19/2021 10:15 AM [employer] Pulse 96 10/19/2021 10:15 AM [employer] Temperature - - Respiratory Rate - - Oxygen Saturation - - Inhaled Oxygen Concentration - - Weight 105.7 kg (233 lb) 10/19/2021 10:15 AM [employer] Height 157.5 cm (5' 2) 10/19/2021 10:15 AM [employer] Body Mass Index 42.62 10/19/2021 10:15 AM [employer] Plan of Treatment Health Maintenance Due Date Last Done Comments Breast Cancer Screening-Mammogram 1965 Colon Cancer Screening-Colonoscopy 1965 Depression Screening 1965 Hepatitis C Screening 1965 DTaP/Tdap/Td Vaccine (1 - Tdap) 1976 Regular Well Visit/Exam 18-64 1983 Pneumococcal vaccine <65 (1 of 2 - PCV) 1984 Zoster Vaccine (1 of 2) 2015 Covid-19 Vaccine (2 - 2024-2 6 season) 2025 11/18/2020 Influenza Vaccine (#1) 2025 0, 05/01/2018, 04/10/2017, Additional history exists Hepatitis B Screening Completed 04/05/2016, 016 Insurance A[employer]NA MEDICARE AET[employer] MEDICARE GOLD Care Teams Baker Relationship Specialty Start Date End Date Angelic Centeno PA [address] [place] [id number] PCP - General 02/18/17
[2025-07-09 11:20] VITALS: BP 158/102; PULSE 85; RESP 22; TEMP 36.4; O2SAT 99
--- NOTE | 2025-07-09 12:01 | ED_ITS ---
HPI - Abdominal Pain General Chief Complaint: Abdominal Pain Stated Complaint: right lower abdo pain Time Seen by Provider: 07/09/25 12:01 Source: patient Mode of arrival: ambulatory Limitations: no limitations History of Present Illness HPI narrative: 59 yo F presents with c/o R lower ABD pain that started last night and today pt states has moved to R side. Pain last night 1010 and today 810. Reports intermittent shooting pain to my vagina. Afebrile. mild nausea, no vomting. No hx of kidney stones. All systems reviewed and negative except as noted above. Related Data Home Medications ?Medication ?Instructions ?Recorded ?Confirmed ?Last Taken ?Type sumatriptan succinate 6 mg/0.5 mL 6 mg subcut ONCE PRN Migraine 10/31/21 04/20/25 Unknown History subcutaneous cartridge (refill) Headache lorazepam 0.5 mg tablet 0.5 mg PO DAILY PRN Anxiety 03/18/24 04/20/25 Unknown History Dulcolax (bisacodyl) 1 tablet BYMOUTH HS 05/21/24 04/20/25 06/01/24 History Allergies Allergy/AdvReac Type Severity Reaction Status Date / Time adhesive tape Allergy Mild SKIN Verified 07/09/25 11:11 IRRITATION PMFSH Past Medical History Medical History (Updated 07/09/25 @ 12:59 by Karolina Todd APRN) Major depression, recurrent, chronic SAM (generalized anxiety disorder) Disc degeneration, lumbar Essential hypertension Venous insufficiency of both lower extremities Hyperlipidemia, mixed Restless leg syndrome 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 GERD (gastroesophageal reflux disease) Migraine headache Arthritis Degenerative disc disease IBS (irritable bowel syndrome) Surgical History Surgical History Hx of arthroscopy of left knee 2000 History of total abdominal hysterectomy and bilateral salpingo-oophorectomy (~09/2002) Hx of arthroscopy of right knee 1991, 1996 History of total right knee replacement (~05/01/22) History of total left knee replacement (~08/09/22) History of appendectomy Family History Family History Mother Lung cancer COPD (chronic obstructive pulmonary disease) Father Bone cancer Heart attack Arthritis Sibling Heart attack Other Heart disease Hypertension Social History Social History Smoking packs per day: 0.5 Smoking cigarettes per day: 10.0 Years smoked: 10 Smoking pack-years: 5.00 Smoking status: Current every day smoker Tobacco type: cigarettes Second hand tobacco smoke exposure: No Smoking end date: 02/09/22 Additional smoking assessment comments: STATES OCCASIONALLY CHEATING LAST CIG 02/26/22-LAST CIG 02/26/22 CONFIRMED Alcohol intake: current Drinks per week: 2 Substance use: never Substance use type: does not use Lack of Transportation: No Lack of Food: Never True Current Housing: I Have Housing Concerned About Future Housing: No Difficulty Paying Gas/Electric Bills: No Difficulty Paying for Meds: No Currently Unemployed: No Education: High School Diploma/GED Difficulty w/ Childcare or Family Care: No Living arrangements: with family Additional living arrangements comments: HUSB Occupation/Education: unemployed Gender identity (if verbalized by the patient): Female Sexual Orientation (if Verbalized by the Patient): Straight or Heterosexual Spiritual care concerns: No Comments At time of signature, agree with nursing past medical, surgical, social and family history. There is no relevant family history pertinent to the presenting complaint. Exam Narrative: GENERAL: This is a well-nourished, well-developed patient, Ill-appearing, obvious pain distress HEAD: normocephalic, atraumatic. EYES: PERRL. Sclera clear/white. Vision is grossly intact. EARS: External ears normal NOSE: External nose normal NECK: Neck supple, non-tender without lymphadenopathy, masses or thyromegaly. CARDIOVASCULAR: Regular rate and rhythm without murmurs, gallops, or rubs. RESPIRATORY: Clear to auscultation. Breath sounds equal bilaterally. No wheezes, rales, or rhonchi. GASTROINTESTINAL: Abdomen soft, non-tender, nondistended. Bowel sounds are active. No hepato-splenomegaly, or palpable masses. No guarding. SKIN: warm, Dry, intact with no suspicious lesions or rash, good texture and turgor. NEURO: awake, alert, and oriented to person, place and time. There were no obvious focal neurologic abnormalities. EXTREMITIES: No joint tenderness, effusion, or edema noted. Course Course Level of Care: Express Care Visit Vital Signs Vital signs: Vital Signs Temperature 36.4 C 07/09/25 11:20 Pulse Rate 85 07/09/25 11:20 Respiratory Rate 22 H 07/09/25 11:20 Blood Pressure 158/102 H 07/09/25 11:20 Pulse Oximetry 99 07/09/25 11:20 Oxygen Delivery Room Air 07/09/25 11:20 Temperature 36.4 C 07/09/25 11:20 Pulse Rate 85 07/09/25 11:20 Respiratory Rate 22 H 07/09/25 11:20 Blood Pressure 158/102 H 07/09/25 11:20 Pulse Oximetry 99 07/09/25 11:20 Oxygen Delivery Room Air 07/09/25 11:20 reviewed MDM - Abdominal Pain MDM Narrative Medical decision making narrative: UA 2+, KUB recommend CT to rule out urethral kidney stone. transferring to [facility] ER. pt agrees with plan of care. Differential Diagnosis Differential diagnosis: Likely abdominal pain, acute appendicitis, calculus of kidney, constipation and small bowel obstruction Lab Data Labs: Lab Results 07/09/25 Range/Units 12:10 POC Urine Color Dark POC Urine Clarity Cloudy POC Urine pH 7.0 POC Ur Specif [place] 1.025 POC Urine Protein Negative (Negative) POC Ur Glucose (UA) Negative (Negative) POC Urine Ketones 1+ (Negative) POC Urine Blood 2+ (Negative) POC Urine Nitrite Negative (Negative) POC Urine Bilirubin Negative (Negative) POC Urine Urobilinogen 0.2 POC U Leukocyte Esteras Trace (Negative) Imaging Data My impression: agree with radiologist Radiologist's impression: ITS Impressions Abdomen X-Ray 07/09/25 12:36 Impression: 1. No acute abnormality.If there is concern for ureteral calculus CT recommended EXAMINATION: XR abdomen/kub 1V, 07/09/2025 12:20 [employer] HISTORY: RLQ PAIN, BOOD IN URINE COMPARISON: No comparisons available. Technique: 3 view. Findings: Moderate fecal content, no dilated bowel loops probable nonspecific calcifications in the mesentery. No free air. No abnormal calcifications No acute osseous abnormality. Impression: 1. No acute abnormality.If there is concern for ureteral calculus CT recommended Discharge Plan Discharge Clinical Impression: Abdominal pain Patient Disposition: Acute Care Hospital Condition: Stable Additional Instructions: Go directly to [facility] ER Patient Language: Kinyarwanda Prescriptions: No Action sumatriptan succinate 6 mg/0.5 mL cartridge 6 mg subcut ONCE PRN (Reason: Migraine Headache) Rx Instructions: may repeat dose once in 1 hour if not relieved lorazepam 0.5 mg tablet 0.5 mg PO DAILY PRN (Reason: Anxiety) hydrochlorothiazide 12.5 mg tablet 12.5 mg PO DAILY Qty: 90 1RF duloxetine 60 mg capsule,delayed release(DR/EC) 120 mg PO DAILY Qty: 180 0RF Dulcolax (bisacodyl) 1 tablet BYMOUTH HS pramipexole 1.5 mg tablet 1.5 mg PO DAILY Qty: 90 1RF Rx Instructions: TAKE 1 TABLET BY MOUTH EVERYDAY AT BEDTIME atorvastatin 20 mg tablet 20 mg PO DAILY Qty: 90 1RF Rx Instructions: TAKE 1 TABLET BY MOUTH EVERYDAY AT BEDTIME Follow-up/Referrals: Tyler Ovalle MD [Primary Care Provider, Family Practice] Time of Disposition: 12:59
[2025-07-09 12:13] LABS: EDUAAPPEAR Cloudy; EDUABILI Negative (Negative); EDUABLOOD 2+ (Negative); EDUACOLOR1 Dark; EDUAGLUCOSE Negative (Negative); EDUAKETONE 1+ (Negative); EDUALEUKO Trace (Negative); EDUANITRATE Negative (Negative); EDUAPH 7.0; EDUAPROTEIN Negative (Negative); EDUASPGRAVITY 1.025; EDUAUROBILI 0.2
[2025-07-09] MEDS: KETOROLAC (*BKC) 60 MG/2 ML VIAL IM (12:29)
== END 2025-07-09 13:05 | disposition short-term general hospital (02) ==
PROVIDERS: Emergency Provider Nurse Practitioner Family; PCP Family Medicine
DX: R10.31 Right lower quadrant pain (principal); I10 Essential (primary) hypertension; E78.5 Hyperlipidemia, unspecified; F17.210 Nicotine dependence, cigarettes, uncomplicated
CPT/HCPCS: 74018; 81003; 87086; 96372; 99213; G0463; J1885

== ENCOUNTER 2025-07-30 11:28 | Outpatient (CLI) | payer MEDICARE, SELFPAY ==
--- OUTSIDE RECORDS SUMMARY | 2024-07-25 15:30 | XMS_ITS ---
Author Organization [facility] Address [address] [id number] Care Team Providers Care Record Retrieval Specialist Name Role Phone John Jimenes Primary Care Provider Migration, Provider Unavailable Unavailable Allergies Allergen (clinical drug ingredient) Drug/Non Drug Allergy documented on EMR Reaction Allergy Type Onset Date Status ADHESIVE TAPE (uncoded) Unknown Allergy Active REASON FOR VISIT Multum To Medispan Conversion Encounter Medications Medication SIG (Take, Route, Frequency, Duration) Notes Start Date End Date Status Triamterene 100 MG Capsule 1 cap(s) orally 2 times a day; Duration: 30 day(s) Unknown SUMAtriptan QD *Please review a nd pick correct strength-formulati on from Medispan options. If intended option is not shown, discontinue and re-order from Quick Search* Unknown Pramipexole Dihydrochloride 1.5 MG Tablet 1 tab(s) orally 3 times a day; Duration: 30 day(s) Unknown Encounters Encounter Location Date Provider Diagnosis [facility] [address] [facility] [address] [place], [place] [id number] 07/25/2024 Provider Migration Plan Of Treatment No Information Progress Notes * Noa CONDONDOB:1965 (59 yo F)Acc No.[id number]:07/25/2024 Patient: Noa Monroy Provider: Lance cleaning Migration :1965 A ge:58 Y S ex:Female Date:07/25/2024 Address:[address] [place] [address], [facility] Pcp:John Jimenes Subjective: * Chief Complaints: * M ultum To Medispan Conversion Encounter * Medications: U nknownSUMAtriptan QD , Notes to Pharmacist: *Please review and pick correct strength-formulation from Medispan options. If intended option is not shown, discontinue and re-order from Quick Search*Triamterene 100 MG Capsule 1 cap(s) orally 2 times a day Pramipexole Dihydrochloride 1.5 MG Tablet 1 tab(s) orally 3 times a day Unknown SUMAtriptan QD , Notes to Pharmacist: *Please review and pick correct strength-formulation from Medispan options. If intended option is not shown, discontinue and re-order from Quick Search*Unknown Triamterene 100 MG Capsule 1 cap(s) orally 2 times a day Unknown Pramipexole Dihydrochloride 1.5 MG Tablet 1 tab(s) orally 3 times a day * Allergies: A DHESIVE TAPE * Electronic signature of Prov ider Migration on 07/30/2025 at 11:52 AM GENERATION ENGINEER Sign off status: Pending * Provider: Lance cleaning Migration Date: 09/25/2023 Generated for Goldie wu/Nayeli/Jesicaitting on: 09/30/2024 11:52 AM GENERATION ENGINEER
--- NOTE | ~2025-07-30 | XR_ITS ---
EXAMINATION: XR abdomen/kub 1V, 07/30/2025 11:40 [employer] HISTORY: NEPHROLITHIASIS COMPARISON: No comparisons available. Technique: 3 view. Findings: Bowel gas pattern unremarkable. No obstruction. No renal calculi noted, fecal content obscures evaluation, there are probable small mesenteric calcifications and phleboliths noted. No acute osseous abnormality. Impression: 1. No acute abnormality. Reviewed, dictated and finalized at location P. [employer]CIAL [employer] OFFICER Impression: 1. No acute abnormality.
--- OUTSIDE RECORDS SUMMARY | 2025-07-30 11:52 | XMS_ITS | Clinical Summary ---
Author Organization [facility] Address [address] [place] [address] Care Team Providers Care Information Clerk Cashier Name Role Phone Unavailable Primary Care Provider Unavailabl e Source Comments [facility],non-owned Affiliates and Associated Physician Practices is amultiple site organization consisting of ambulatory clinics and hospital sitesin [place], [place], [place]. This disclosure is being madepursuant to the Care Everywhere program and may not contain all information available regarding this patient. Last updated 18.[facility] Social History Tobacco Use Types Packs/Day Years [...] MEDICARE AWV CALENDAR YEAR 2024 COVID-19 VACCINE (2024-2 6 season) 2025 INFLUENZA VACCINE (#1) 2025 [...] ALMONTE Subscriber ID:Not on file (Home) Address: [address] [place] [id number] Payer ID:Not on file Group ID:Not on file Type:Self Pay Address: [place], [place]
--- OUTSIDE RECORDS SUMMARY | 2025-07-30 11:52 | XMS_ITS | Clinical Summary ---
Author Organization [facility] Address [address] [place] [address] Care Team Providers Care Tool Crib Attendant Name Role Phone Angelic Centeno Primary Care Provider [phone] Allergies Active Allergy Reactions Criticality Noted Date Comments Adhesive Tape-Silicones Rash Medium 02/28/2017 Medications pramipexole (MIRAPEX) 1.5 mg tablet Take 1.5 mg by mouth daily 2 Active SUMAtriptan (IMITREX) 6 mg/0.5 mL injection sumatriptan 6 mg/0.5 mL subcutaneous pen injector Active triamterene-hy droCHLOROthiaz derrell (triamterene-h ydroCHLOROthia zide) 37.5-25 mg per tablet/capsule Take 1 tablet/capsule by mouth daily Active tamsulosin (FLOMAX) 0.4 mg extended release capsule Take 1 capsule (0.4 mg total) by mouth daily 30 capsule 5 08/08/20 25 Active HYDROcodone-ac etaminophen (NORCO) 5-325 mg per tabletIndicati ons:Pain Take 1 tablet by mouth every 6 (six) hours as needed for pain 15 tablet 5 Active cephalexin (KEFLEX) 500 mg capsule Take 1 capsule (500 mg total) by mouth 4 (four) times a day for 7 days 28 capsule 5 07/16/20 25 Active Problems Problem Noted Date Diagnosed Date Primary osteoarthritis of both knees 10/19/2021 Encounters Date Type Department Care Team Description 07/09/2025 5:19 PM QUARTZ CUTTER - 07/09/2025 6:44 PM QUARTZ CUTTER Emergency [facility] Emergency Department [address] [place] [address] Maxine Courtney MD Kidney stone on right side (Primary Dx); Hydronephrosis, unspecified hydronephrosis type Discharge Disposition: Discharge to home or self care from Last 3 Months Surgical History Surgery Date Site/Laterality Comments HYSTERECTOMY KNEE SURGERY Medical History Medical History Date Comments Depression Osteoarthritis Migraines Family History Medical History Relation Name Comments Arthritis Other COPD Other Hypertension Other Relation Name Status Comments Other Social History Tobacco Use Types Packs/Day Years Used Date Smoking Tobacco: Every Day Smokeless Tobacco: Never Personal Safety Answer Date Recorded Have you ever been in or are you currently in a harmful physical or emotional relationship or is someone making you feel afraid or unsafe? Denies 07/09/2025 Comments Unknown Sex and Gender Information Value Date Recorded Sex Assigned at Not on file Legal Sex Female 10:20 AM QUARTZ CUTTER Gender Identity Female 07/15/2025 7:15 AM QUARTZ CUTTER Sexual Orientation Straight 07/15/2025 7: 15 AM QUARTZ CUTTER Last Filed Vital Signs Vital Sign Reading Time Taken Comments Blood Pressure 142/98 07/09/2025 6:30 PM QUARTZ CUTTER Pulse 81 07/09/2025 6:30 PM QUARTZ CUTTER Temperature 37.1 C (98.7 F) 07/09/2025 1:23 PM QUARTZ CUTTER Respiratory Rate 18 07/09/2025 6:30 PM QUARTZ CUTTER Oxygen Saturation 100% 07/09/2025 6:30 PM QUARTZ CUTTER Inhaled Oxygen Concentration - - Weight 102.1 kg (225 lb) 07/09/2025 1:23 PM QUARTZ CUTTER Height 160 cm (5' 3) 07/09/2025 1:23 PM QUARTZ CUTTER Body Mass Index 39.86 07/09/2025 1:23 PM QUARTZ CUTTER Plan of Treatment Health Maintenance Due Date Last Done Comments Breast Cancer Screening-Mammogram 1965 Colon Cancer Screening-Colonoscopy 1965 Depression Screening 1965 Hepatitis C Screening 1965 Regular Well Visit/Exam 18-64 1983 Pneumococcal vaccine <65 (1 of 2 - PCV) 1984 Zoster Vaccine (1 of 2) 2015 Covid-19 Vaccine (2 - 2024-2 6 season) 2025 11/18/2020 Influenza Vaccine (#1) 2025 0, 05/01/2018, 04/10/2017, Additional history exists DTaP/Tdap/Td Vaccine (2 - Td or Tdap) 09/08/2031 09/08/2021 Hepatitis B Screening Completed 04/05/2016, 016 Procedures Procedure Name Priority Date/Time Associated Diagnosis Comments URINALYSIS, MICROSCOPIC ONLY STAT 07/09/2025 5:34 PM QUARTZ CUTTER URINE CULTURE STAT 07/09/2025 5:34 PM QUARTZ CUTTER URINALYSIS AND REFLEX TO MICROSCOPIC AND CULTURE STAT 07/09/2025 5:34 PM QUARTZ CUTTER URINALYSIS, MICROSCOPIC ONLY STAT 07/09/2025 4:06 PM QUARTZ CUTTER URINE CULTURE STAT 07/09/2025 4:06 PM QUARTZ CUTTER URINALYSIS AND REFLEX TO MICROSCOPIC AND CULTURE STAT 07/09/2025 4:[address] ABDOMEN PELVIS W CONTRAST ED 07/09/2025 3:50 PM QUARTZ CUTTER EGFR STAT 07/09/2025 1:26 PM QUARTZ CUTTER DIFFERENTIAL AUTO STAT 07/09/2025 1:2 6 PM QUARTZ CUTTER LIPASE STAT 07/09/2025 1:26 PM QUARTZ CUTTER COMPREHENSIVE METABOLIC PANEL STAT 07/09/2025 1:26 PM QUARTZ CUTTER CBC WITH AUTO DIFFERENTIAL STAT 07/09/2025 1:26 PM QUARTZ CUTTER from Last 3 Months Results * (ABNORMAL) Urinalysis reflex to microscopic and culture Urine (07/09/2025 5:34 PM QUARTZ CUTTER) Color, ur Yellow Yellow Clarity, ur Clear Clear [facility] ([place]) Specific gravity, ur 1.005 1.003 - 1.030 [facility] ([place]) pH, urine 7.0 [facility] Comment: Interpretive Data U rine pH is affected by diet, medications, systemic acid-base disturbances, and renal tubular function. pH may affect urinary stone formation. For example, urine pH below 6.0 may help reduce the tendency for calcium phosphate stones and pH greater than 6.0 may reduce the tendency for uric acid stone formation. Source: [facility] Current Interpretive Data was last revised on 2017 Protein, ur ql Trace Negative [facility] ([place]) Glucose, ur ql Negative Negative [facility] Ketones, ur 1+(A) Negative [facility] Bilirubin, ur Negative Negative [facility] Blood, ur 2+(A) Negative [facility]) Urobilinogen, ur <2.0 <2.0 mg/dL [facility]) Nitrite, ur Negative Negative [facility]) Leukocyte esterase, ur 2+(A) Negative [facility] ([place]) UA reflex comment Reflex to microscopic UA will be performed. [facility]) Urine 07/09/2025 5:34 PM QUARTZ CUTTER 07/09/2025 5:39 PM QUARTZ CUTTER us Maxine Courtney MD LAB MICROBIOLOGY - GENERAL O RDERABLES Final Result [facility] ([place] 1 [facility] Department [place] [address] * (ABNORMAL) Urinalysis, microscopic only (07/09/2025 5:34 PM QUARTZ CUTTER) WBC, ur 11-20(A) 0 - 5 /HPF RBC, ur 11-20(A) 0 - 2 /HPF [facility] Epithelial cells, squamous, ur 1-5 0 - 5 /HPF [facility] Bacteria, ur Trace(A) [facility] Mucous, ur Present(A) [facility] Culture Reflex Comment Reflex to urine culture will be performed. [facility]) Urine 07/09/2025 5:34 PM QUARTZ CUTTER 07/09/2025 5:39 PM QUARTZ CUTTER Maxine Courtney MD LAB URINE ORDERABLES Final R esult Performing Organization Address [facility] Co de Phone Number [facility] 1 [facility] [place] [address] * Urine culture Urine (07/09/2025 5:34 PM QUARTZ CUTTER) Report Final Report: Less than 100,000 colonies/mL (clinically insignificant growth based on current clinical standards) Comment:Testing performed by : [facility], [address] [place]., [address] Organism (CLINICALLY INSIGNIFICANT GROWTH [facility] Urine 07/09/2025 5:34 PM QUARTZ CUTTER 07/09/2025 9:14 PM QUARTZ CUTTER Narrative [facility] - 07/10/2025 11:54 PM QUARTZ CUTTER Urine culture reflexed based upon urinalysis results. Testing performed by [facility] ([phone]) Maxine Courtney MD LAB MICROBIOLOGY - GENERAL O RDERABLES Final Result Performing Organization Address [facility] Co de Phone Number [facility] 1 [facility] [place] [address] * (ABNORMAL) Urinalysis reflex to microscopic and culture Urine (07/09/2025 4:06 PM QUARTZ CUTTER) Color, ur Yellow Yellow Clarity, ur Clear Clear [facility] ([place]) Specific gravity, ur 1.025 1.003 - 1.030 [facility] ([place]) pH, urine 6.5 [facility] Comment: Interpretive Data U rine pH is affected by diet, medications, systemic acid-base disturbances, and renal tubular function. pH may affect urinary stone formation. For example, urine pH below 6.0 may help reduce the tendency for calcium phosphate stones and pH greater than 6.0 may reduce the tendency for uric acid stone formation. Source: [facility] Current Interpretive Data was last revised on 2017 Protein, ur ql Trace Negative [facility] Glucose, ur ql Negative Negative [facility] Ketones, ur 1+(A) Negative [facility] Bilirubin, ur Negative Negative [facility] Blood, ur 3+(A) Negative [facility]) Urobilinogen, ur <2.0 <2.0 mg/dL [facility] Nitrite, ur Negative Negative [facility]) Leukocyte esterase, ur 2+(A) Negative [facility]) UA reflex comment Reflex to microscopic UA will be performed. [facility]) Urine 07/09/2025 4:06 PM QUARTZ CUTTER 07/09/2025 4:09 PM QUARTZ CUTTER Maxine Courtney MD LAB MICROBIOLOGY - GENERAL O RDERABLES Final Result Performing Organization Address [facility] de Phone Number [facility] ([place]) 1 [facility] Department [place] [address] * (ABNORMAL) Urinalysis, microscopic only (07/09/2025 4:06 PM QUARTZ CUTTER) WBC, ur 11-20(A) 0 - 5 /HPF RBC, ur >50(A) 0 - 2 /HPF [facility] Epithelial cells, squamous, ur 6-10(A) 0 - 5 /HPF [facility] Bacteria, ur 1+(A) [facility] Mucous, ur Present(A) [facility] Culture Reflex Comment Reflex to urine culture will be performed. [facility]) Urine 07/09/2025 4:06 PM QUARTZ CUTTER 07/09/2025 4:09 PM QUARTZ CUTTER Maxine Courtney MD LAB URINE ORDERABLES Final R esult Performing Organization Address [facility]/ZIP Co de Phone Number [facility] ([place]) 1 [facility] Department [place] [address] * Urine culture Urine (07/09/2025 4:06 PM QUARTZ CUTTER) Report Final Report: Less than 100,000 colonies/mL (clinically insignificant growth based on current clinical standards) Comment:Testing performed by : [facility], [address] [place]., [address] Organism (CLINICALLY INSIGNIFICANT GROWTH [facility] ([place]) Urine 07/09/2025 4:06 PM QUARTZ CUTTER 07/09/2025 6:14 PM QUARTZ CUTTER Narrative [facility]) - 07/11/2025 6:54 AM QUARTZ CUTTER Urine culture reflexed based upon urinalysis results. Testing performed by [facility] ([phone]) Maxine Courtney MD LAB MICROBIOLOGY - GENERAL O RDERABLES Final Result Performing Organization Address [facility] Co de Phone Number [facility] ([place]) 1 [facility] Department [place] [address] * CT Abdomen Pelvis W Contrast (07/09/2025 3:50 PM QUARTZ CUTTER) Anatomical Region Laterality Modality Body N/A Computed Tomogra phy 07/09/2025 4:04 PM QUARTZ CUTTER Impressions 07/09/2025 4:04 PM QUARTZ CUTTER Obstructing right ureteral calculus measuring 0.3 cm with hydronephrosis and hydroureter. Electronically signed by: Sander Fatima M.D. Narrative 07/09/2025 4:04 PM QUARTZ CUTTER EXAMINATION: CT ABDOMEN PELVIS W CONTRAST ORDERING HEALTHCARE PROVIDER: MAXINE COURTNEY HISTORY: Abdominal pain, acute, nonlocalized. Right lower quadrant pain since last night. TECHNIQUE: CT abdomen and pelvis with intravenous and without oral contrast. Reconstructed coronal and sagittal MPR images reviewed. All images stored on PACS. Automated exposure control was used as a dose optimization technique for this examination. CONTRAST TYPE/DOSE: 100 mL Optiray 350 intravenous COMPARISON: None available FINDINGS: LOWER CHEST: The lung bases are clear. The heart is normal in size without pericardial effusion. LIVER: Normal. GALLBLADDER: No radiodense gallstones. SPLEEN: Normal. PANCREAS: Normal. ADRENALS: Normal. KIDNEYS/URINARY TRACT: Right kidney demonstrates moderate hydronephrosis and diffuse hydroureter with perinephric and periureteral stranding. This extends to the ureterovesicular junction where 0.3 cm stone is identified. Left kidney demonstrates no obstructing stone or hydronephrosis. Lower pole cortical likely cysts with no follow-up required per guidelines. There graft Normal urinary bladder. GI: No bowel obstruction. Appendix not well demonstrated. PERITONEUM: No free intraperitoneal air or ascites. REPRODUCTIVE: Normal. VASCULATURE: No abdominal aortic aneurysm. MUSCULOSKELETAL: No acute findings. OTHER: No other acute findings. Procedure Note Sander Fatima MD - 07/09/2025 EXAMINATION: CT ABDOMEN PELVIS W CONTRAST ORDERING HEALTHCARE PROVIDER: MAXINE COURTNEY HISTORY: Abdominal pain, acute, nonlocalized. Right lower quadrant pain since last night. TECHNIQUE: CT abdomen and pelvis with intravenous and without oral contrast. Reconstructed coronal and sagittal MPR images reviewed. All images stored on PACS. Automated exposure control was used as a dose optimization technique for this examination. CONTRAST TYPE/DOSE: 100 mL Optiray 350 intravenous COMPARISON: None available FINDINGS: LOWER CHEST: The lung bases are clear. The heart is normal in size without pericardial effusion. LIVER: Normal. GALLBLADDER: No radiodense gallstones. SPLEEN: Normal. PANCREAS: Normal. ADRENALS: Normal. KIDNEYS/URINARY TRACT: Right kidney demonstrates moderate hydronephrosis and diffuse hydroureter with perinephric and periureteral stranding. This extends to the ureterovesicular junction where 0.3 cm stone is identified. Left kidney demonstrates no obstructing stone or hydronephrosis. Lower pole cortical likely cysts with no follow-up required per guidelines. There graft Normal urinary bladder. GI: No bowel obstruction. Appendix not well demonstrated. PERITONEUM: No free intraperitoneal air or ascites. REPRODUCTIVE: Normal. VASCULATURE: No abdominal aortic aneurysm. MUSCULOSKELETAL: No acute findings. OTHER: No other acute findings. IMPRESSION: Obstructing right ureteral calculus measuring 0.3 cm with hydronephrosis and hydroureter. Electronically signed by: Sander Fatima M.D. Maxine Courtney MD IMG CT PROCEDURES Final Resu lt * eGFR (07/09/2025 1:26 PM QUARTZ CUTTER) eGFR 90 >=60 mL/min/1. 73 m2 Comment: Interpretive Data Reference Interval Normal >/= 90 mL/min/1.73m2 Mildly decreased* 60 - 89 mL/min/1.73m2 Mildly to moderately decreased 45 - 59 mL/min/1.73m2 Moderately to severely decreased 30 - 44 mL/min/1.73m2 Severely decreased 15 - 29 mL/min/1.73m2 Kidney Failure < 15 mL/min/1.73m2 *Relative to young adult level Estimated glomerular filtration rate is determined by the 2020 CKD-EPI equation recommended by the National Kidney Foundation (A Unifying Approach to GFR Estimation: Recommendations of the NKF-ASK Task Force on Reassessing the Inclusion of Race in Diagnosing Kidney Disease, JASN 2020). The CKD-EPI equation should not be used for patients with unstable renal function and has not been validated in children and those over 70. Current interpretive data was last reviewed 2021. Blood 07/09/2025 1:26 PM QUARTZ CUTTER 07/09/2025 1:30 PM QUARTZ CUTTER Maxine Courtney MD LAB BLOOD ORDERABLES Final R esult [facility] ([place] 1 [facility] Department [place] [address] * (ABNORMAL) Differential, auto (07/09/2025 1:26 PM QUARTZ CUTTER) Neutrophil abs 8.36(H) 1.50 - 6.50 K/cumm Imm gran abs 0.04 0.00 - 0.10 K/cumm [facility] Lymphocyte abs 1.88 0.80 - 3.30 K/cumm [facility] ([place]) Monocyte abs 0.65 0.20 - 0.80 K/cumm [facility] Eosinophil abs 0.06 0.00 - 0.50 K/cumm [facility] ([place]) Basophil abs 0.04 0.00 - 0.10 K/cumm [facility]) Neutrophil pct 75.8 % [facility] Comment: Interpretive Data Percent cell count reference ranges are not reported, since discordance with absolute values may lead to misinterpretation of CBC data. Current Interpretive Data was last revised on 2017. Imm gran pct 0.4 % [facility] ([place]) Comment: Interpretive Data Percent cell count reference ranges are not reported, since discordance with absolute values may lead to misinterpretation of CBC data. Current Interpretive Data was last revised on 2017. Lymphocyte pct 17.0 % [facility] ([place] Comment: Interpretive Data Percent cell count reference ranges are not reported, since discordance with absolute values may lead to misinterpretation of CBC data. Current Interpretive Data was last revised on 2017. Monocyte pct 5.9 % [facility] ([place] Comment: Interpretive Data Percent cell count reference ranges are not reported, since discordance with absolute values may lead to misinterpretation of CBC data. Current Interpretive Data was last revised on 2017. Eosinophil pct 0.5 % [facility] ([place] Comment: Interpretive Data Percent cell count reference ranges are not reported, since discordance with absolute values may lead to misinterpretation of CBC data. Current Interpretive Data was last revised on 2017. Basophil pct 0.4 % [facility] ([place] Comment: Interpretive Data Percent cell count reference ranges are not reported, since discordance with absolute values may lead to misinterpretation of CBC data. Current Interpretive Data was last revised on 2017. Blood 07/09/2025 1:26 PM QUARTZ CUTTER 07/09/2025 1:30 PM QUARTZ CUTTER us Maxine Courtney MD LAB BLOOD ORDERABLES Final R esult [facility] ([place]) 1 [facility] Department [place] [address] * (ABNORMAL) CBC with auto differential (07/09/2025 1:26 PM QUARTZ CUTTER) WBC 11.03(H) 3.80 - 9.90 K/cumm Hgb 12.8 11.9 - 15.5 g/dL [facility] Hct 37.0 35.6 - 45.5 % [facility] Plt 237 150 - 400 K/cumm [facility] MPV 8.9(L) 9.1 - 12.3 fL [facility] RBC 3.95 3.90 - 5.20 M/cumm [facility] MCV 93.7 81.3 - 96.4 fL [facility] MCH 32.4 27.1 - 33.3 pg [facility] MCHC 34.6 32.3 - 35.7 g/dL [facility] RDW CV 12.4 11.1 - 14.9 % [facility] RDW SD 42.6 35.7 - 48.1 fL [facility] NRBC abs 0.00 0.00 - 0.01 K/cumm [facility]) Blood Venous blood specimen / Unknown 07/09/2025 1:26 PM QUARTZ CUTTER 07/09/2025 1:30 PM QUARTZ CUTTER Maxine Courtney MD LAB BLOOD ORDERABLES Final R esult [facility] ([place]) 1 [facility] [address] * Lipase (07/09/2025 1:26 PM QUARTZ CUTTER) Lipase 20 10 - 99 Units/L Blood Venous blood specimen / Unknown 07/09/2025 1:26 PM QUARTZ CUTTER 07/09/2025 1:30 PM QUARTZ CUTTER Maxine Courtney MD LAB BLOOD ORDERABLES Final R esult [facility] ([place]) 1 [facility] Department [place] [address] * (ABNORMAL) Comprehensive metabolic panel (07/09/2025 1:26 PM QUARTZ CUTTER) Sodium 139 135 - 145 mmol/L Potassium, pl 3.6 3.3 - 4.9 mmol/L [facility] Chloride 103 97 - 110 mmol/L [facility] CO2 26 22 - 32 mmol/L [facility] Anion gap 10 2 - 15 mmol/L [facility] BUN 13 6 - 25 mg/dL [facility] Creatinine 0.76 0.60 - 1.10 mg/dL [facility] Glucose 92 70 - 199 mg/dL [facility] Comment: Interpretive Data Fasting glucose >/= 126 mg/dl is diagnostic for diabetes. Fasting is defined as no caloric intake for at least 8 hours. Fasting glucose between 100 mg/dl to 125 mg/dl is diagnostic of prediabetes. In a patient with classic symptoms of hyperglycemia or hyperglycemic crisis, a random glucose >/= 200 mg/dl is diagnostic for diabetes. In the absence of unequivocal hyperglycemia, results should be confirmed by repeat testing. The classification and Diagnosis of Diabetes Diabetes Care 2021; 46: S19-S40. Current interpretive data was last revised 2022. Calcium 9.1 8.5 - 10.3 mg/dL [facility] Bilirubin, total 0.5 0.1 - 1.2 mg/dL [facility] ([place] Protein, pl 6.4(L) 6.5 - 8.5 g/dL [facility] Albumin 4.3 3.5 - 5.0 g/dL [facility] Alk phos 66 40 - 130 Units/L [facility] ALT 28 7 - 45 Units/L [facility] AST 24 10 - 45 Units/L [facility] Blood 07/09/2025 1:26 PM QUARTZ CUTTER 07/09/2025 1:30 PM QUARTZ CUTTER Maxine Courtney MD LAB BLOOD ORDERABLES Final R esult [facility] [place] 1 [facility] Department [place] [address] from Last 3 Months Insurance AET MEDICARE T MEDICARE GOLD AETNA MEDICARE GOLD Care Teams Tool Crib Attendant Relationship Specialty Start Date End Date Angelic Centeno PA [address] [place], [place] [id number] PCP - General 02/18/17
--- OUTSIDE RECORDS SUMMARY | 2025-07-30 11:52 | XMS_ITS | Clinical Summary ---
Author Organization [facility] Address [address] [place] [address] Phone Care Team Providers Care Gate Agent Name Role Phone Tyler Ovalle MD Primary [...] (#1) 2025 Medical Devices Implanted Type Area Airplane Designer Device Identifier Shelf Expiration Date Model / Serial / Lot Sheeting Silic [id number] - [id number] Implanted:Qty : 1 on 03/25/2017 by Tien Tolbert MD at [facility] Adhesion Barrier N/A: Nose [employer] 12/09/2020 [id number] / / Hemostatic Surgicel 2x3in 1952 Csc - [id number] Implanted:Qty : 1 on 03/25/2017 by Tien Tolbert MD at [facility] Hemostatic N/A: Nose [employer] [id number] 05/11/20201952 / / [id number] Sealant Floseal 5ml [id number] - [id number] Implanted:Qty : 1 on 03/25/2017 by Tien Tolbert MD at [facility] Sealant N/A: Nose EARLY- BIOSCIENCE [id number] 05/11/2018 [id number] / / [id number] Insurance [facility] OPTIONS PPO [id number] Advance Directives For more information, please contact: [phone] * Full Code (Latest Code Status on File) Date Activated Date Inactivated Comments 03/25/2017 11:51 AM 03/25/2017 5:30 PM * Full Code Date Activated Date Inactivated Comments 03/25/2017 6:32 AM 03/25/2017 11:51 AM Care Teams Gate Agent Relationship Specialty Start Date End Date Tyler Ovalle MD [address] [place] [id number] PCP - General Family Practice 02/28/17
--- OUTSIDE RECORDS SUMMARY | 2025-07-30 11:52 | XMS_ITS | Patient Health Record ---
Author Organization [facility] Address [address] [facility] [address] [place], [place] [id number] Care Team Providers Care Bag Grader Name Role Phone John Jimenes Primary Care Provider Allergies Allergen (clinical drug ingredient) Drug/Non Drug [...] W/U Status Risk Notes Problem Sleep apnea (64210965) Sleep apnea, unspecified (G47.30) Active confirmed Problem Disorder of nasal sinus (disorder) (6418912) Other specified disorders of nose and nasal sinuses (J34.89) Active confirmed Problem Sensory disorder of smell and/or taste (0547824307266) Unspecified disturbances of smell and taste (R43.9) Active confirmed Problem Allergic rhinitis (42953767) Allergic rhinitis, unspecified (J30.9) Active confirmed Problem Eustachian tube disorder (78461556) Unspecified Eustachian tube disorder, left ear (H69.92) Active confirmed Problem Sensorineural hearing loss of bilateral ears (disorder) (629838203) Sensorineural hearing loss, bilateral (H90.3) Active confirmed Problem Atypical facial pain (67999259) Atypical facial pain (G50.1) Active confirmed Problem Chronic otitis externa of right external auditory canal (disorder) (1400674497872347 ) Unspecified chronic otitis externa, right ear (H60.61) Active confirmed Problem Chronic otitis externa of left external auditory canal (disorder) (4834162753046587 ) Unspecified chronic otitis externa, left ear (H60.62) Active confirmed Problem Chronic sinusitis (85161493) Chronic sinusitis, unspecified (J32.9) Active confirmed Problem Deviated nasal septum (884225980) Deviated nasal septum (J34.2) Active confirmed Problem Hypertrophy of nasal turbinates (36591241) Hypertrophy of nasal turbinates (J34.3) Active confirmed Problem Cellulitis of face (469045740) Cellulitis of face (L03.211) Active confirmed Problem Headache (06071013) Headache (R51) Active confirmed Plan Of Treatment No Information Insurance Providers Payer Name Payer Address Payer Phone Subscriber Number Group Number Insured Name Patient Relationship to Insured Coverage Start Date Coverage End Date [employer] [address] [place] [address] [id number] Noa Condon Self - patient is the insured Medical (General) History Medical History History ICD Code wendie --cpap migraine headaches ,rls Pertinent Medical History: Ear problems, Migraine headaches, Surgical History Surgery Date(Month/Year) knee surgery x3 appendectomy hysterectomy toe surgery nasal sx --dr montejo 2016 semo septo/nasl valve sx 2016
== END 2025-07-30 11:29 | disposition home or self-care (01) ==
PROVIDERS: PCP Family Medicine; Visit Provider Student in an Organized Health Care Education/Training Program
DX: N20.0 Calculus of kidney (principal)
CPT/HCPCS: 74018